=== PATIENT | female | born 1935 | race Caucasian/White ===

== ENCOUNTER 2018-06-04 14:13 | Emergency (ER) | payer OTHER, BC ==
[~2018-06-04] VITALS: Ht 160 cm; Wt 65.8 kg
[2018-06-04 14:14] VITALS: BP 130/84
[2018-06-04] MEDS ORDERED: APAP650 PO (14:29)
[2018-06-04] MEDS ORDERED: FLEET ENEMA133 ML RECTAL (14:29)
[2018-06-04] MEDS ORDERED: VITAMIN B-12500 MCG PO (14:30)
[2018-06-04] MEDS ORDERED: TYLENOL325 MG PO (14:30)
[2018-06-04] MEDS ORDERED: VITAMINC500 PO (14:30)
[2018-06-04] MEDS ORDERED: MILK OF MA2400 MG/10 PO (14:31)
[2018-06-04] MEDS ORDERED: BISACODYL10 MG RECTAL (14:31)
[2018-06-04] MEDS ORDERED: NYSTATIN1 EA10 TOP (14:32)
[2018-06-04 15:08] LABS: HCO3 26.2 mmol/L (22.0-26.0); PCO2 39.8 mmHg (35.0-45.0); pH 7.437 (7.360-7.450); sO2 95.9 % (92.0-98.0)
[2018-06-04 15:32] LABS: ABSOLUTE NEUTROPHILS 8.4 thou/uL (1.4-8.2); BASOPHILS 0.3 % (0.0-2.0); EOSINOPHILS 1.5 % (0.0-3.0); HEMATOCRIT 41.2 % (37.0-47.0); HEMOGLOBIN 13.6 gm/dL (12.0-15.0); LYMPHOCYTES 10.7 % (24.0-44.0); MCH 26.1 pg (26.0-34.0); MCHC 33.1 g/dL (28.0-37.0); MCV 78.9 fL (80.0-100.0); MONOCYTES 8.9 % (1.0-8.0); PLATELET COUNT 201 thou/uL (150-400); POLYS 78.6 % (36.0-66.0); RBC 5.23 mil/uL (4.20-5.00); RDW 17.2 % (10.5-14.5); WBC 10.7 thou/uL (4.0-11.0)
[2018-06-04 16:26] LABS: PROTIME 9.8 Seconds (9.3-11.4)
[2018-06-04 16:29] LABS: ALBUMIN 2.8 g/dL (3.4-5.0); CALCIUM 9.3 mg/dL (8.5-10.1); TOTAL BILIRUBIN 0.3 mg/dL (<0.1-1.0); TOTAL PROTEIN 6.6 g/dL (6.4-8.2)
[2018-06-04 20:56] VITALS: BP 171/90
--- NOTE | 2018-06-05 08:27 | EKG ---
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 : 1935 Requested By: Amairani Ambrocio Order Number: [id number] MD: Vik Perdue Measurements Intervals [place] Rate: 112 P: 37 MO: 151 QRS: -56 QRSD: 91 T: 75 QT: 292 QTc: 399 Interpretive Statements Sinus tachycardia Left ventricular hypertrophy Inferior infarct, old Anterior Q waves, possibly due to LVH No previous ECG available for comparison Electronically Signed On 06-05-2018 8:27:32 DIRECTOR FEDERAL by Vik Perdue [email or web address] <ELECTRONICALLY SIGNED> By: Vik Perdue MD 06/05/18 0827 D: 01/0 1440 Vik Perdue MD /IOANA
== END 2018-06-04 21:10 | disposition short-term general hospital (02) ==
LOC: ER 14:13 → EROBS 16:12 → ER 16:12
PROVIDERS: Physician Assistant
DX: S22.41XA Multiple fractures of ribs, right side, initial encounter for closed fracture (principal); J96.01 Acute respiratory failure with hypoxia; J94.2 Hemothorax; I21.4 Non-ST elevation (NSTEMI) myocardial infarction; J93.9 Pneumothorax, unspecified; Z88.6 Allergy status to analgesic agent; Z88.1 Allergy status to other antibiotic agents; Z88.8 Allergy status to other drugs, medicaments and biological substances; Z88.0 Allergy status to penicillin; W18.39XA Other fall on same level, initial encounter; Y92.89 Other specified places as the place of occurrence of the external cause; Y93.89 Activity, other specified; Y99.8 Other external cause status

== ENCOUNTER 2018-09-07 02:39 | Inpatient (IN) | payer OTHER, BC ==
[~2018-09-07] VITALS: Ht 162.6 cm; Wt 63.5 kg
--- NOTE | ~2018-09-07 | HC ---
[facility] [place] [address] CONSULTATION Name: ROHAN RITCHIE Room #: 355-P ADM IN M.R.#: [id number] Admission: 09/07/18 ������������������ Attend Phys: Silvia De León Discharge: ������������������ Date of : 33 Report #: [id number] THIS REPORT FOR: //name// CC: Silvia Sainz DATE OF SERVICE: 09/09/2018 HISTORY OF PRESENT ILLNESS: The patient is an 83-year-old white female with a prior history of CVA with right-sided hemiparesis with residual, was admitted from assisted living facility with worsening weakness of her right upper and right lower extremity. She noted that she was having more and more problems with her functional mobility. She typically utilizes a walker during the day, but she was having more and more problems using the right arm and the right leg and was actually needing to be lifted up to the wheelchair and to the bathroom, which was unusual for her. She was admitted to [facility] and evaluated for the increased right-sided weakness. She was seen by Neurology. MRI revealed multiple old infarcts, right frontal, bilateral cerebellar, left frontal, and small old left parietal. She has the right-sided weakness. MRI of the cervical, thoracic, and lumbar spine showed significant degenerative arthritis, but no obvious etiology. The recommendation is that the patient eventually follow up with her outpatient neurologist at . We are seeing her to try to work in rehabilitation to try to improve the patient's functional independence closer to her premorbid functional level. Of note, the patient also has been diagnosed with urinary tract infection, is noted to have an encephalopathy and is on IV antibiotics. PAST MEDICAL HISTORY: Includes prior CVA with right hemiparesis. She had a prior ankle fracture in 02/2018. MEDICATIONS: Please see the full medication listing. ALLERGIES: TORADOL, KEFLEX, DOLOBID, ERYTHROMYCIN, DITROPAN, AND PENICILLIN. SOCIAL HISTORY: As noted above. She lives in an assisted living facility, was able to do quite well at the walker level, needed assistance with bathing. She used the wheelchair at night. She does have an involved daughter. She apparently was pushed to have breakfast in a wheelchair, but walked to have lunch and dinner, mostly with the walker. She gets minimal assistance premorbidly typically with dressing and bathing. She had indicated that she did most of her dressing and that she did need help with toileting premorbidly. REVIEW OF SYSTEMS: No current complaints of chest pain, shortness of breath, or abdominal discomfort. She has the right-sided weakness. No focal extremity pain complaints. Denies any bowel or bladder changes. No difficulty [address] [address] CONSULTATION Name: ROHAN RITCHIE Room #: 355-P [facility] IN M.R.#: [id number] Admission: 09/07/18 ������������������ Attend Phys: Silvia De León Discharge: ������������������ Date of : 33 Report #: [id number] swallowing; although, she thinks she may have had one episode where she had a cough afterwards. No focal visual problems. PHYSICAL EXAMINATION: GENERAL: The patient is an 83-year-old white female, in no obvious distress. VITAL SIGNS: Last recorded temperature is 97.6, pulse is 73, respirations 20, and blood pressure is 129/70. She is alert. HEENT: Appeared to be benign. NEUROLOGIC: Cranial nerves grossly intact. Facies are symmetric. No obvious visual field neglect was noted. She is able to verbalize; although, defers a lot of answers to her daughter. EXTREMITIES: She has functional range of motion of the upper extremities with some decreased end range with some chronic arthritic changes. Strength of the left upper extremity is probably a grade 4/5. Right upper extremity is 3+ to 4-. Left lower extremity is 4/5. Right lower extremity is probably 3+ to 4-/5. DTRs are trace to 1. She was reasonably good with simultaneous stimulation. There was no clonus. She is mod assist with sit to stand. Gait 10 feet min assist front-wheeled walker, mod assist bathing. ASSESSMENT: The patient is an 83-year-old white female with the following problem list: 1. Increased right hemiparesis. Appears to be clinical evidence of an acute cerebrovascular accident; although, findings are not found radiographically. 2. Multiple old cerebrovascular accidents as noted above. 3. Encephalopathy. 4. Urinary tract infection, on IV antibiotics. 5. Hypertension. 6. Prior history of pneumothorax secondary to rib fracture. 7. Functional mobility, ADL decline. 8. Rule out swallowing problems. PLAN: The patient is a candidate for an acute in-hospital inpatient rehabilitation stay. Can plan on transfer to the acute inpatient rehab [facility] when medically cleared and a bed available. ��������������������������������������������� ���������������������������������������� By: ��������������������������������������������� [id number] [id number] Kj Gottlieb MD /[facility]
[~2018-09-07 02:39] MED LIST: APAP650 PO; BISACODYL10 MG RECTAL; FLEET ENEMA133 ML RECTAL; MILK OF MA2400 MG/10 PO; NYSTATIN1 EA10 TOP; TYLENOL325 MG PO; VITAMIN B-12500 MCG PO; VITAMINC500 PO
[2018-09-07 02:42] VITALS: BP 116/51
[2018-09-07 03:07] LABS: ABSOLUTE NEUTROPHILS 6.6 thou/uL (1.4-8.2); BASOPHILS 0.5 % (0.0-2.0); EOSINOPHILS 2.2 % (0.0-3.0); HEMATOCRIT 34.2 % (37.0-47.0); HEMOGLOBIN 10.9 gm/dL (12.0-15.0); LYMPHOCYTES 18.8 % (24.0-44.0); MCH 23.1 pg (26.0-34.0); MCV 72.2 fL (80.0-100.0); MONOCYTES 6.6 % (1.0-8.0); PLATELET COUNT 373 thou/uL (150-400); POLYS 71.9 % (36.0-66.0); RBC 4.73 mil/uL (4.20-5.00); RDW 17.7 % (10.5-14.5); WBC 9.2 thou/uL (4.0-11.0)
[2018-09-07 03:08] LABS: POC CA IONIZED 4.6 mg/dL (4.5-5.3); POC CREATININE 0.8 mg/dL (0.6-1.3); POC HEMOGLOBIN 10.9 g/dL (12.0-15.0); POC POTASSIUM 3.6 mmol/L (3.5-5.1)
[2018-09-07 03:14] LABS: APTT 31.1 Seconds (24.5-32.8)
[2018-09-07 03:16] LABS: ANION GAP 9 mmol/L (7-16); BUN 16 mg/dL (7-18); CALCIUM 9.4 mg/dL (8.5-10.1); CHLORIDE 102 mmol/L (98-107); CO2 27 mmol/L (21-32); CREATININE 0.9 mg/dL (0.6-1.0); GLUCOSE 91 mg/dL (74-106); POTASSIUM 3.8 mmol/L (3.5-5.1); SODIUM 138 mmol/L (136-145)
[2018-09-07 03:26] LABS: ALBUMIN 2.8 g/dL (3.4-5.0); SGOT 13 U/L (15-37); SGPT 11 U/L (30-65); TOTAL BILIRUBIN 0.7 mg/dL (<0.1-1.0); TROPONIN-I <0.06 ng/mL (<0.06)
[2018-09-07 03:56] LABS: ANISOCYTOSIS 1+; HYPOCHROMASIA 1+; MICROCYTES 1+
[2018-09-07 03:57] LABS: POLYCHROMASIA 1+
[2018-09-07 04:01] LABS: URINE BILIRUBIN NEGATIVE (Negative); URINE BLOOD 1+ (Negative); URINE CLARITY SL CLOUDY; URINE COLOR YELLOW; URINE GLUCOSE-RANDOM* NEGATIVE (Negative); URINE KETONES NEGATIVE (Negative); URINE PROTEIN (DIPSTICK) TRACE (Negative); URINE SPECIFIC GRAVITY 1.015 (1.005-1.035); URINE UROBILINOGEN 0.2 E.U./dl (0.2-1.0)
[2018-09-07 04:02] LABS: URINE LEUKOCYTES-REFLEX 3+ (Negative); URINE NITRITE-REFLEX POSITIVE (Negative)
[2018-09-07 04:09] LABS: AMP/METHAMP Negative (Negative); BARBITURATES Negative (Negative); BENZODIAZEPINES Negative (Negative); COCAINE Negative (Negative); METHADONE Negative (Negative); OPIATES Negative (Negative); PCP Negative (Negative)
[2018-09-07 04:10] LABS: CASTS None Seen /LPF (None Seen); MUCUS None Seen strn/LPF (None Seen); SQUAMOUS None Seen /LPF (0-3)
[2018-09-07 04:11] LABS: BACTERIA-REFLEX >30 Many /HPF (None Seen); CRYSTALS None Seen /LPF (None Seen); URINE RBC 3-10 Few /HPF (0-2); URINE WBC-REFLEX >25 Many /HPF (0-5); WBC CLUMPS Moderate (None Seen)
[2018-09-07 04:57] VITALS: BP 121/62
[2018-09-07 05:16] VITALS: BP 132/74
--- NOTE | 2018-09-07 06:31 | NUR ---
admission completed. iv levofloxicin started and iv fluids infusing. she is quiet and is having complaints of increased weakness to her rt arm and leg. she does have a history of this rt sided weakness per dtrs report. oriented to room and surroundings. denies pain. careplan started.
[2018-09-07 07:37] VITALS: BP 123/73
--- NOTE | 2018-09-07 09:11 | EKG ---
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 : 1935 Requested By: Giorgio Adam Order Number: [id number] MD: Saqib Garnica Measurements Intervals [place] Rate: 61 P: 23 MT: 144 QRS: -44 QRSD: 100 T: 7 QT: 396 QTc: 399 Interpretive Statements Sinus rhythm Atrial premature complexes Left anterior fascicular block Borderline T abnormalities, anterior leads Compared to ECG 06/04/2018 14:40:26 Atrial premature complex(es) now present Left anterior fascicular block now present T-wave abnormality now present Sinus tachycardia no longer present Electronically Signed On 09-07-2018 9:10:58 CDT by Saqib Garnica [email or web address] ��������������������������������������������� <ELECTRONICALLY SIGNED> ���������������������������������������� By: Saqib Garnica MD ��������������������������������������������� 09/07/18 0910 0252 0252 Saqib Garnica MD /EPI
[2018-09-07 15:54] VITALS: BP 138/80
[2018-09-07 19:50] VITALS: BP 140/88
[2018-09-08] VITALS: BP 136/79
[2018-09-08 03:45] VITALS: BP 126/83
[2018-09-08 04:25] LABS: ANION GAP 10 mmol/L (7-16); BUN 14 mg/dL (7-18); CHLORIDE 104 mmol/L (98-107); CHOLESTEROL 157 mg/dL (<200); CO2 24 mmol/L (21-32); CREATININE 0.8 mg/dL (0.6-1.0); GLUCOSE 90 mg/dL (74-106); HDL CHOLESTEROL 42 mg/dL (>40); LDL CHOLESTEROL 102 mg/dL (<100); POTASSIUM 3.8 mmol/L (3.5-5.1); SODIUM 138 mmol/L (136-145); TC:HDL 3.7 Ratio (Not establshd); TRIGLYCERIDE 68 mg/dL (<150); VLDL 14 mg/dL (<40)
[2018-09-08 04:26] LABS: SERUM ASSESSMENT Clear
--- NOTE | 2018-09-08 05:30 | NUR ---
No change in patient neuro assessment. Patient ALOx4 with right sided weakness and a stronger left side. PERRLA. Patient remains weak and anxious when ambulating. Patient moved very slow and had trouble with getting her right foot to move at times. Patient needed coaching on when and how far to turn. Patient assist x1 with walker, or assist x2 with two people. Patient bed alarm and yellow socks on.
[2018-09-08 07:57] VITALS: BP 145/87
[2018-09-08 16:42] VITALS: BP 149/86
[2018-09-08 20:10] VITALS: BP 177/87
[2018-09-08 21:32] VITALS: BP 137/73
[2018-09-09 04:44] VITALS: BP 138/73
--- NOTE | 2018-09-09 05:11 | NUR ---
Patient neuro checks remain unchanged; ALOx4, strong on the left side and weakness on the right side. Patient up to the commode x1 assist with the walker. Patient needed encouragement when turning and moving toward the commode and back to the bed. The patient is still slow with getting her right leg to move. Patient's bed alarm on, bed in low position and call light within reach. Patient making partial progress toward plan of care goals.
[2018-09-09 07:43] VITALS: BP 129/70
--- NOTE | 2018-09-09 12:04 | HC ---
[facility] [place] [address] CONSULTATION Name: ROHAN RITCHIE Room #: 355- ADM IN M.R.#: [id number] Admission: 09/07/18 ������������������ Attend Phys: Silvia De León Discharge: ������������������ Date of : 33 Report #: [id number] THIS REPORT FOR: //name// CC: Silvia Sainz DATE OF SERVICE: 09/07/2018 HISTORY OF PRESENT ILLNESS: This is an 83-year-old female patient who was evaluated by me for increasing right-sided weakness. The patient provided some history. The patient's daughter is there. She provided some history. The records were reviewed. She lives in an assisted living and they noticed that she is getting weaker on the right side. This happened a few days ago. History is not very clear. It looks like the right upper extremity weakness started several years ago. She used to live in [place], [place]. They thought it was because of arthritis. Then, she became weak in the right lower extremity and has some numbness in the right side of the face. They did evaluation in this patient and they found that the patient had strokes on the right side but they were not sure why she is having weakness on the right side also. She fell and she had some pneumothorax and she was admitted to [facility]. I do not have any records from [facility]. They apparently did MRI in this patient and found some stroke in the posterior fossa. She has moderately become weak on the right side. She is left handed. She is able to carry on many activities with the left hand. REVIEW OF SYSTEMS: Indicate that this patient had strokes in the past. She has spine problems, but that has been in the lower spine. She has respiratory problems, pleural effusion, pneumothorax for which she was admitted to [facility]. She had a fall that time. She had multiple rib fractures that time. That was in May. We do not have the record. She does not believe that she has any new eye, ENT, cardiac, respiratory, GI, , musculoskeletal, constitutional, dermatological, hematological, psychiatric, throat, allergic symptom associated with present symptomatology. PAST MEDICAL HISTORY: Positive for strokes but history is not very clear. FAMILY HISTORY: Negative for early age stroke. SOCIAL HISTORY: She does not smoke. PHYSICAL EXAMINATION: NEUROLOGICAL: Indicate she is alert, responsive, able to follow commands. Speech is at her baseline. She lives in assisted living. Memory and fund of knowledge is at her baseline. Cranial nerve examination 2 through 12 does [facility] [address] [place] [address] CONSULTATION Name: ROHAN RITCHIE Room #: 355-P [facility] IN M.R.#: [id number] Admission: 09/07/18 ������������������ Attend Phys: Silvia De León Discharge: ������������������ Date of : 33 Report #: [id number] indicate that there is probably weakness on the right side of the face. She is pretty significantly weak in the right upper and right lower extremity. Her tone is increased on both upper and lower extremity but position sense is present. Reflexes appeared to be asymmetrical and is more on the right side as compared to the left side. She cannot do cerebellar signs on the right side and I could not look at the patient's fundus. There is no meningeal sign in this patient. NECK: There is no thyroid mass. HEENT: Her hearing and vision looks adequate. GENERAL: She is a thinly built individual who does not have any dysmorphic features of eyes, ears and face. CARDIAC: Examinations indicate there may be some irregularity, but the patient does not appear to be in atrial fibrillation. She did have an EKG and that confirmed that finding. LUNGS: No respiratory difficulty or rhonchi was noted. VITAL SIGNS: Blood pressure is 123/73, respiration is 16, pulse is 71 and temperature is 97.4. LABORATORY DATA: White count is 9.2, but the patient's urine is abnormal consistent with UTI. She did have a CT scan of the head, which was reviewed and that showed old strokes but no new strokes. IMPRESSION AND PLAN: 1. Very poorly formed history in this patient, but she indicates she is weak on the right side. We will exclude the possibility of any extension of the patient's prior cerebrovascular accident. Her weakness is on the right side and the face is not much involved. I would like to exclude any associated abnormality in the cervical spine. The patient has urinary tract infection and expected to have some encephalopathy and if she had a prior cerebrovascular accident, they can have focal signs that is already being treated. We will get an MRI of the brain and C-spine. 2. We will see how she does with treatment of urinary tract infection. 3. She needs physical therapy and occupational therapy evaluation and we will also see how she does with that. 4. She had an extensive evaluation with [facility] recently and we will try to see if she can get those records from that. Thank you very much for this referral and if you have any question, please feel free to contact me. ��������������������������������������������� <ELECTRONICALLY SIGNED> ���������������������������������������� By: Clint Schumacher MD ��������������������������������������������� 09/09/18 1204 0902 0041 Clint Schumacher MD /nt
--- NOTE | 2018-09-09 15:43 | NUR ---
ASSESSMENT: CM REVIEWED CHART AND MET WITH PATIENT AT THE BEDSIDE. PT WAS ADMITTED WITH POSSIBLE TIA. PT REPORTS SHE LIVES AT [facility]. PT REPORTS SHE USES A WALKER AND A WHEELCHAIR THERE. PT REPORTS SHE HAS HAD HH IN THE PAST BUT NOT CURRENTLY. PT/OT RECOMMENDING [facility]. [facility] WAS CONSULTED FOR PATIENT AND CAN ACCEPT HER WHEN SHE IS MEDICALLY STABLE. PT IS AGREEABLE TO GO TO [facility]. CM WILL CONTINUE TO FOLLOW TO ASSIST NEEDED. PTS DAUGHTER SUNNY IS AT THE BEDSIDE AND UPDATED ON PLAN. CM CONTACTED DYLAN AT [facility] TO UPDATE HER AND FAXED CLINICAL.
[2018-09-09 16:20] VITALS: BP 140/75
[2018-09-09 19:04] VITALS: BP 132/70
--- NOTE | 2018-09-09 19:34 | NUR ---
PT HOPES TO TRANSFER TO [facility] TOMORROW IF BED AVAILABLE..INCREASED RT SIDED WEAKNESS PRIOR TO ADMISSION...ENCOURAGE INCREASE ACTIVITY...
[2018-09-10 03:39] VITALS: BP 120/63
--- NOTE | 2018-09-10 04:40 | NUR ---
Pt. slept fair during the night. No change in neuro assessment. Up with assist to commodex1. Making progress towards care plan goals.
[2018-09-10 07:32] VITALS: BP 134/65
--- NOTE | 2018-09-10 13:18 | NUR ---
on-going assessment: CM REVIEWED CHART AND MET WITH PATIENT AND HER DAUGHTER AT THE BEDSIDE. PLANS ARE FOR PT TO GO TO [facility] TODAY. [facility] NOTIFIED AND THEY CAN ACCEPT HER TODAY. REPORT TO BE CALLED TO [phone]. PT REPORTS NO FURTHER NEEDS AT THIS TIME.
--- NOTE | 2018-09-10 14:12 | NUR ---
PLANS TO DISCHARGE TO [facility] THIS AFTERNOON...ORDERS IN COMPUTER...DAUGHTER IN ROOM AND AWARE OF TX...EAGER TO START REHAB...
[2018-09-10] MEDS ORDERED: LEVAQUIN 500 M500 M2 PO (15:05)
== END 2018-09-10 15:26 | DRG 69 ==
LOC: ER 02:39 → 3W 04:09 → EROBS 04:09 → 3W 04:57
PROVIDERS: Emergency Medicine; Nurse Practitioner Family; ADMIT Hospitalist
DX: G45.9 Transient cerebral ischemic attack, unspecified (principal); E43 Unspecified severe protein-calorie malnutrition; N39.0 Urinary tract infection, site not specified; G93.40 Encephalopathy, unspecified; I69.351 Hemiplegia and hemiparesis following cerebral infarction affecting right dominant side; I10 Essential (primary) hypertension; M62.84 Sarcopenia; M19.011 Primary osteoarthritis, right shoulder; Z87.81 Personal history of (healed) traumatic fracture; Z88.1 Allergy status to other antibiotic agents; Z88.0 Allergy status to penicillin; Z88.8 Allergy status to other drugs, medicaments and biological substances; Z79.82 Long term (current) use of aspirin; Z79.899 Other long term (current) drug therapy
CPT/HCPCS: 10879

== ENCOUNTER 2018-09-10 12:40 | Inpatient (IN) | payer OTHER, BC ==
[~2018-09-10] VITALS: Ht 160 cm; Wt 63.5 kg
[2018-09-10] MEDS ORDERED: LEVAQUIN 500 M500 M2 PO (15:05)
[2018-09-10 15:35] VITALS: BP 130/63
--- NOTE | 2018-09-10 19:39 | NUR ---
ASSUMED CARE AT APPROX 1600. PT ADMITED FROM [facility] TO [facility] FOR CLINICAL TIA NEGATIVE FOR CVA THIS TIME PT HAD MULTIPLE CVAs IN THE PAST. HAS RIGHT SIDE WEAKNESS WITH LIMITTED MOVEMENT. PT CAME FROM [facility] [place]. HAS ONE SON AND DAUGHTER, VIDAL. PATIENT A/OX4. ABLE TO COMMUNICATE AND VOICE HER NEEDS. DENIES PAIN,SOB, N/V PATIENT EDUCATED ON UNIT SPECIFIC PRECAUTIONS INCLUDING FALL PRECAUTIONS. DISCUSSED ABOUT REHAB SCHEDULE. FALL PRECAUTIONS IN PLACE. PATIENT VERBALLY AGREED TO FALL PRECAUTIONS. PATIENT ATE 50% DINNER, NO SWALLOWING ISSUES BUT HAS PROBLEMS WITH CHEWING. DAUGHTER BROUGHT DENTURE ADHENSIVE TONIGHT. PATIENT UP X1 ASSIST GB AND WALKER, LAST FALL WAS ON MAY. REPORT LAST BM WAS YESTERDAY. ADMISSION ASSESSMENT COMPLETE. SKIN INTACT, HAS MILD REDNESS ON BOTTOM, ENCOURAGED PT TO TURN IN BED, GAVE REPORT TO NIGHT NURSE TO CONTINUE TO MONITOR OFFERED SUPPORTIVE CARE. ENCOURAGED PT TO VOICE HERNEEDS. FAXED MED LIST TO PHARMACY. HANDOFF TO NIGHT NURSE TO CONTINUE TO FOLLOW UP WITH MEDS AND CALL FOR PHYSICIAN CONSULTS.
[2018-09-10 19:40] VITALS: BP 145/78
[2018-09-11 05:34] LABS: HEMATOCRIT 33.2 % (37.0-47.0); HEMOGLOBIN 10.5 gm/dL (12.0-15.0); MCH 22.9 pg (26.0-34.0); MCHC 31.5 g/dL (28.0-37.0); MCV 72.7 fL (80.0-100.0); RBC 4.57 mil/uL (4.20-5.00); RDW 18.1 % (10.5-14.5); WBC 5.9 thou/uL (4.0-11.0)
--- NOTE | 2018-09-11 05:34 | NUR ---
UP TO BSC WITH MIN ASSIST, RIGHT SIDED WEAKNESS. WATER AND CALL LIGHT MADE AVAILABLE TO LEFT HAND. CONCERNED ABOUT HER POOR VISION BEING A HINDERANCE. PATIENT DECLINES ANY OFFER TO TURN ON HER SIDE, BUT APPRECIATES MOISTURE BARRIER TO RECCENED BUTTOCKS, HAS BEEN CONTINENT
[2018-09-11 05:44] LABS: CREATININE 0.8 mg/dL (0.6-1.0); POTASSIUM 4.1 mmol/L (3.5-5.1)
[2018-09-11 07:45] VITALS: BP 109/67
--- NOTE | 2018-09-11 12:40 | NUR ---
cm visited with pt while up in wheel chair. pt a & o x 3, pleasant and able to make her needs know. preferrs going by pat. intro to cm, transition of care, home health and team meeting " oh i would like by daughter to be at meeting " /pt. education that cm will be discussing dcp with pt and daughter after meeting. " ok she probably have to work that day any way, live at [facility], have walker and wheel chair. have meals there. had hh in past"/pt. will cont following as needed for dc needs.
--- NOTE | 2018-09-11 15:12 | NUR ---
Patient participated in community reintegration on 09/11/18 with SPEECH THERAPY. Refer to documentation by ALIYAH SPEECH THERAPIST.
--- NOTE | 2018-09-11 18:36 | NUR ---
ASSUMED CARE AT APPROX 0715. PATIENT A/O X4. DENIES PAIN. UP X1 ASSIST, MAX ASSIST TRANSFER. PARTICIPATED IN THERAPY. OUT TO TABLES FOR MEALS. VSS. MEDS REVIEWED, ORDERS CLARIFIED WITH PROVIDER. PATIENT EDUCATED AT BEDSIDE REGARDING TIA, PRINTED EDUCATION PROVIDED, PATIENT CORRECTLY VERBALIZED SIGNS/SYMPTOMS OF A STROKE. PATIENT REFUSES TURNING Q2, EDUCATED ABOUT PRESSURE REDUCTION AND RISK OF PRESSURE WOUNDS. PATIENT VERBALIZED UNDERSTANDING, BUT REFUSED TURNING. PATIENT UP TO CHAIR DURING DAY. FALL PRECAUTIONS IN PLACE. PATIENT RESTING IN BED AT CHANGE OF SHIFT.
[2018-09-11 19:07] VITALS: BP 125/58
--- NOTE | 2018-09-12 04:31 | NUR ---
PIVOT TRANSFER WITH 1 PERSON ASSIST UP TO BSC. REFUSES TO TURN TO SIDE BECAUSE SHE IS MORE COMFORTABLE ON HER BACK. BOTTOM IS REDDENED, SHE APPRECIATES MOISTURE BARRIER AND INSISTS ON WEARING HER BRIEFS FROM HOME DUE TO OCCASSIONAL STRESS INCONTINENCE
[2018-09-12 08:08] VITALS: BP 116/51
--- NOTE | 2018-09-12 15:59 | NUR ---
ASSUMED CARE AT APPROX 0715. PATIENT A/O X4. DENIES PAIN. UP X1 ASSIST GB, PIVOTING TO BSC/BED FROM . PATIENT HAVING SMALL, HARD BM'S. PATIENT REFUSING BOWEL AIDS AT THIS TIME, AGREED TO DRINK PRUNE JUICE AT 2 MEALS THIS DATE. EDUCATED ON CONSTIPATION & BOWEL AIDS. WILL CONTINUE TO MONITOR. SOFT TOUCH CALL LIGHT OBTAINED PATIENT REPORTED DIFFICULTY PUSHING CALL BUTTON. PATIENT ROUNDED ON HOURLY. REFUSING TURNING, RE-EDUCATED ON PRESSURE WOUNDS, HEELS FLOATED. PATIENT UP IN CHAIR FOR MEALS AND BETWEEN THERAPY. FALL PRECAUTIONS IN PLACE. WILL CONTINUE TO MONITOR.
[2018-09-12 20:46] VITALS: BP 138/66
--- NOTE | 2018-09-13 02:38 | NUR ---
PT ASSESSMENT COMPLETED AND VSS. MEDS GIVEN ORDERED IN APPLESAUSE - WELL TOLERATED. FALL PRECAUTIONS IN PLACE. UP TO THE BSC WITH ASST/GAIT/WALKER. PT INSISTED ON WEARING A BRIEF. COCCYX RED. BARRIER CREAM APPLIED. SPOKE WITH PT ABOUT THE IMPORTANCE OF TURNING. PT REFUSED TO HAVE STAFF REPOSITION HER BUT WAS WILLING TO TURN ON HER SIDE ON OCCASION. SLEEPING WELL. WILL CONTINUE TO MONITOR FREQUENTLY.
[2018-09-13 08:15] VITALS: BP 123/61
--- NOTE | 2018-09-13 08:57 | NUR ---
ASSUMED CARE OF PT AT 0715. PT IS A&OX4. IS ON ROOM AIR. DENIES PAIN. IS UP WITH 1 ASSIST, GB, WALKER WITH RIGHT SIDED WEAKNESS. FALL PRECAUTIONS & HOURLY ROUNDING MAINTAINED. LABS & VITALS REVIEWED. PT IS STABLE. TAKES PILLS ONE AT AT TIME IN APPLE SAUCE. TO DINNER ROOM FOR ALL MEALS. PT IS PARTICULAR ABOUT HOW THINGS ARE PLACED IN THE ROOM & HOW THINGS ARE TO BE DONE. PT IS CURRENTLY SITTING UP IN RECLINER, WATCHING TV. CALL LIGHT WITHIN REACH. WILL CONTINUE TO MONITOR.
--- NOTE | 2018-09-13 15:49 | NUR ---
I have reviewed the documentation by ERIC IGLESIAS from 09/13/18 to 09/13/18 and I concur with it. SUSAN RUFF
[2018-09-13 20:02] VITALS: BP 154/96
--- NOTE | 2018-09-14 03:36 | NUR ---
ASSUMED CARE FROM DAY SHIFT , PT ENCOURAGE TO ASSIST IN CARE PT VERY DEPENDENT ON STAFF WHEN TASK SHE COULD DO FOR SELF. DENIES PAIN OR SOA, PO MEDICATION TAKEN WITH APPLESAUCE, TOLERATED WELL. RESTED WELL THROUGHOUT HOURLY ROUNDS. WILL CONITNUE WITH CURRENT PLAN OF CARE.
[2018-09-14 19:49] VITALS: BP 133/55
--- NOTE | 2018-09-15 02:51 | NUR ---
ASSUMEEC CARE AT SATR OF SHIFT PT HAVE NO CONCERNS OR COMPLAINTS , STILLL NEEDING ENCOURAGMENT FOR ADLS , PT WANT STAFF TO SPOON MEDICATION IN MOUTH WHEN PT IS FEEDING SELF ALL THREE MEALS. PT ABLE TO TAKE MEDICATION WITH APPLE SAUCE, PT ABLE TO FEED TO SELF WITHOUT PROMBLEMS, UP TO BSC X3 WITH ASSSIT OF ONE STANDBY ASSIST. WILL CONITNUE WITH CURRENT PLAN OF CARE
[2018-09-15 07:18] VITALS: BP 115/56
--- NOTE | 2018-09-15 17:27 | NUR ---
ASSUMED CARE AT APPROX 0715. PATIENT A/O X4. DENIES PAIN. UP X1 ASSIST GB AND WALKER. VSS. NEEDS CUES/ENCOURAGEMENT TO INCREASE INDEPENDENCE/INITIATION OF ADLS. OUT TO TABLES FOR MEALS, AMBULATED WITH BOOT REPAIRER. SUPERVISION ASSIST FOR CLOTHING MANAGEMENT. MEDS GIVEN PER ORDERS. PATIENT CALLS APPROPRIATELY. FALL PRECAUTIONS IN PLACE. PATIENT RESTING IN BED AFTER DINNER. WILL CONTINUE TO MONITOR.
[2018-09-15 20:26] VITALS: BP 136/60
--- NOTE | 2018-09-16 04:20 | NUR ---
PT ASSESSMENT COMPLETED AND VSS. MEDS GIVEN ORDERED AND WELL TOLERATED. FALL PRECAUTIONS IN PLACE. PT UP TO BSC WITH ASST/GAIT/WALKER. VOIDING LARGE AMOUNT OF YELLOW URINE. SLEEPING WELL. DENIES NEEDS. WILL CONTINUE TO MONITOR FREQUENTLY.
[2018-09-16 07:45] VITALS: BP 126/66
--- NOTE | 2018-09-16 15:37 | NUR ---
I have reviewed the documentation by ERIC IGLESIAS from 09/16/18 to 09/16/18 and I concur with it. SUSAN RUFF
--- NOTE | 2018-09-16 15:38 | NUR ---
DISCHARGE PLANNING: PATIENT'S DAUGHTER HANDED TO NURSE TECHNICAL SYSTEM ANALYST A FORM FOR PT'S LTC INSURANCE, AND REQUESTED THAT WE FILL IT OUT AND FAX IT TO THE INSURANCE COMPANY. EQUIPMENT MONITOR PHOTOTYPESETTING WAS NOTIFIED, AND WE WILL PROCESS FOLLOWING DISCHARGE FROM OUR FACILITY. WHEN NURSE TECHNICAL SYSTEM ANALYST RETURNED TO THE ROOM TO INFORM THE PATIENT AND FAMILY OF WHAT WE WOULD BE DOING WITH THE FORM, THE DAUGHTER REQUESTED THAT WE PASS ON TO THE PATCH WORKER THAT THE PATIENT WANTS TO HAVE [facility] AT DISCHARGE, SHE HAS USED THEM IN THE PAST AND SHE IS FAMILIAR WITH THEM. THIS INFORMATION WAS SENT TO THE PATCH WORKER.
--- NOTE | 2018-09-16 16:06 | NUR ---
ASSUMED CARE AT APPROX 0715. REPORTS SLEPT GOOD LAST NIGHT. PATIENT A/O X4. ABLE TO MAKE HER NEEDS KNOWN. [place] AND POOR VISION BUT MANAGEABLE.DENIES PAIN. UP X1 ASSIST GB AND WALKER AND GO TO BATHROOM. VSS. NEEDS CUES/ENCOURAGEMENT TO INCREASE INDEPENDENCE. OUT TO TABLES FOR MEALS. REASSESSMENT PER CHART. PT HAS SMALL HARD BM TODAY, REFUSES TO TAKE COLACE. PREFERS TO TAKE PRUNE JUICE DAILY. PT WAS ON HH DIET. PT HAS POOR APPETITE AND WOULD LIKE TO HAVE CHOCOLATE FOR DINNER. NOTIFIED CELESTINA EDUARDO AND OBTAINED ORDER TO CHANGE TO REGULAR DIET AND HOPE PT CAN EAT MORE. MEDS GIVEN PER ORDERS. PATIENT CALLS APPROPRIATELY. FALL PRECAUTIONS IN PLACE. DAUGHTER WAS HERE TO SEE PT. WILL GO TO DINNING ROOM FOR DINNER SOON. SKIN INTACT, GREAT TOES ON BOTH SIDE HAS OPTIFOAM FOR COMFORT. WILL CONTINUE TO MONITOR.
--- NOTE | 2018-09-16 16:46 | NUR ---
bedside nurse reported that daughter was in room and had question. cm called spoke with daughter who stated " i have paper work for her ltc insurance policy that needs to be filled out"/susan. amena passed on information to vocational nursing instructor, she visited with pt and family. nursing manage passed on that pt stated want continua hh when [facility].
[2018-09-16 19:16] VITALS: BP 138/57
--- NOTE | 2018-09-17 01:44 | NUR ---
PT ASSESSMENT COMPLETED AND VSS. MEDS GIVEN ORDERED AND WELL TOLERATED. FALL PRECAUTIONS IN PLACE. UP TO THE BSC WITH ASST/GAIT/WALKER. STEADY. VOIDING LARGE AMOUNT OF YELLOW URINE. PT REFUSED TURNS BUT WAS WILLING TO TURN ON HER OWN WITH REMINDERS. SLEEPING WELL. WILL CONTINUE TO MONITOR FREQUENTLY.
[2018-09-17 08:21] VITALS: BP 124/57
--- NOTE | 2018-09-17 13:37 | NUR ---
team meeting, recommendation: send update clinical to [facility] 09/25/18 with continua hh ( pt, ot, nursing). pt will remain on [facility] soft diet with thin liquids.
--- NOTE | 2018-09-17 14:25 | NUR ---
ASSUMED CARE AT APPROX 0715. PATIENT A/O X4. DENIES PAIN. UP X1 SBA GB AND WALKER, NEEDING CUES FOR INITIATION OF ADLS, CUES TO TURN Q2 WHILE IN BED TO RELIEVE PRESSURE. BARRIER CREAM APPLIED. VSS. PATIENT PARTICIPATING IN THERAPY. FALL PRECAUTIONS IN PLACE. PATIENT CALLS APPROPRIATELY FOR ASSISTANCE. FOAM DRESSING TO BILATERAL GREAT TOES FOR COMFORT. FALL PRECAUTIONS IN PLACE. WILL CONTINUE TO MONITOR.
--- NOTE | 2018-09-17 15:35 | NUR ---
I have reviewed the documentation by ERIC IGLESIAS from 09/17/18 to 09/17/18 and I concur with it. SUSAN RUFF
--- NOTE | 2018-09-17 16:49 | NUR ---
FAXED CLINICAL UPDATE TO [facility]GE SPOKE WITH ZABRINA AT FACILITY THEY RECEIVED UPDATE AND NOTIFIED THEM THAT WE ANTICIPATE DC 09/25 WITH CASA ROLF. ROSELIENP TO FOLLOW.
[2018-09-17 19:30] VITALS: BP 128/67
--- NOTE | 2018-09-18 04:11 | NUR ---
APPRECIATES TYLENOL AT HS MORE TO ALLOW SLEEP THAN FOR PAIN ITSELF. PIVOTS EASILY TO BSC FOR VOIDING, INSISTS ON WEARING BRIEF FOR USI, THOUGH IT REMAINS LARGELY DRY. PLANS VERY CAREFULLY TO KEEP EVERYTHING IN REACH ON HER LEFT SIDE AND TO KEEP WATER GLASS AT 50%
[2018-09-18 08:30] VITALS: BP 101/58
--- NOTE | 2018-09-18 11:58 | NUR ---
FAXED REFERRAL TO [facility] SPOKE WITH MICHELLE IN ADM HE WILL REVIEW REFERRAL DCP TO FOLLOW.
--- NOTE | 2018-09-18 13:46 | NUR ---
NOTIFIED NEREYDA HODGE SPOKE WITH DYLAN IN ADM THAT PT. IS ON A MECHANICAL SOFT WITH THIN LIQUIDS DIET SHE IS ABLE TO SUPPLY SPECIAL DIET TO PT AT FACILITY.
--- NOTE | 2018-09-18 14:50 | NUR ---
I have reviewed the documentation by ERIC IGLESIAS from 09/18/18 to 09/18/18 and I concur with it. CARROL PETERS
--- NOTE | 2018-09-18 18:53 | NUR ---
ASSUMED CARE OF PATIENT AT 0715. PATIENT IS A&OX4 WITH PERIODS OF FORGETFULNESS, VITAL SIGNS ARE STABLE. PATIENT REFUSED TURNING TO SIDES DESPITE EDUCATION ABOUT PRESSURE SORES AND SKIN IMPAIRMENT. PATIENT TOOK MEDS APPROPRIATELY WITH APPLESAUCE, ONE AT A TIME. FALL PRECAUTIONS IN PLACE AND NURSING WILL CONTINUE TO MONITOR PATIENT.
[2018-09-18 19:58] VITALS: BP 141/77
--- NOTE | 2018-09-19 01:22 | NUR ---
PT ALERT AND ORIENTED X 4. UP TO BSC WITH ASSIST X 1. RIGHT SIDED WEAKNESS. PT TOOK HS MEDS IN APPLESAUCE WITHOUT DIFFICULTY. PT DENIES PAIN OR DISCOMFORT. BED ALARM ON FOR SAFETY. PT APPEARS TO BE SLEEPING ON HOURLY ROUNDS.
[2018-09-19 08:36] VITALS: BP 110/67
--- NOTE | 2018-09-19 16:27 | NUR ---
ASSUMED CARE AT APPROX 0715. REPORTS SLEPT GOOD LAST NIGHT. PATIENT A/O X4. DENIES PAIN, SOB, N/V. UP X1 SBA GB AND WALKER TO BATHROOM. HAD SMALL FORMED BM TODAY. PT NEEDING CUES FOR INITIATION OF ADLS, PT HAS BEEN UP FOR THERAPY AND WALK TO BATHROOM DURING DAY. REDNESS IS BETTER DURING DAY. PT NEEDS CUES FOR TURN Q2 WHILE IN BED TO RELIEVE PRESSURE. BARRIER CREAM APPLIED EARLIER. VSS. PATIENT PARTICIPATING IN THERAPY AND UP TO DINNING ROOM FOR MEALS. CONTINUE TO BE ON [facility] SOFT DIET. EATING ABOUT 50% BREAKFAST AND LUNCH. FALL PRECAUTIONS IN PLACE. PATIENT CALLS APPROPRIATELY FOR ASSISTANCE. FOAM DRESSING TO BILATERAL GREAT TOES FOR COMFORT. FALL PRECAUTIONS IN PLACE. WILL CONTINUE TO MONITOR.
--- NOTE | 2018-09-19 16:34 | NUR ---
I have reviewed the documentation by ERIC IGLESIAS from 09/19/18 to 09/19/18 and I concur with it. CARROL PETERS
[2018-09-19 20:09] VITALS: BP 132/80
--- NOTE | 2018-09-20 02:01 | NUR ---
PT ALERT AND ORIENTED X 4. UP TO BSC WITH ASSIST X 1 WITHOUT DIFFICULTY. PT INSISTED ON USING BSC RATHER THAN WALKING TO BR. RIGHT SIDED WEAKNESS. PT TOOK HS MEDS IN APPLESAUCE. PT DENIES PAIN OR DISCOMFORT. BED ALARM ON FOR SAFETY. PT APPEARS TO BE SLEEPING ON HOURLY ROUNDS.
[2018-09-20 05:34] LABS: CALCIUM 9.3 mg/dL (8.5-10.1); CREATININE 0.9 mg/dL (0.6-1.0); MAGNESIUM 1.9 mg/dL (1.8-2.4); POTASSIUM 4.3 mmol/L (3.5-5.1)
[2018-09-20 05:56] LABS: BASOPHILS 1.3 % (0.0-2.0); EOSINOPHILS 6.4 % (0.0-3.0); HEMATOCRIT 33.9 % (37.0-47.0); HEMOGLOBIN 10.8 gm/dL (12.0-15.0); LYMPHOCYTES 24.1 % (24.0-44.0); MCHC 31.8 g/dL (28.0-37.0); MCV 72.4 fL (80.0-100.0); MONOCYTES 9.2 % (1.0-8.0); PLATELET COUNT 326 thou/uL (150-400); RBC 4.69 mil/uL (4.20-5.00); RDW 18.9 % (10.5-14.5); WBC 5.1 thou/uL (4.0-11.0)
[2018-09-20 07:30] VITALS: BP 105/49
--- NOTE | 2018-09-20 15:19 | NUR ---
I have reviewed the documentation by ERIC IGLESIAS from 09/20/18 to 09/20/18 and I concur with it. CARROL PETERS
--- NOTE | 2018-09-20 18:35 | NUR ---
ASSUMED CARE AT APPROX 0715. PATIENT A/O X4. DENIES PAIN, SOB, N/V. PT GOT UPSET THAT SHE CAN'T ALLOW TO USE BSC AT HS. TALKED TO JOHANNA, HISTOLOGY SUPERVISOR AND THERAPISTS AND WE ARE OK FOR HER TO USE BSC UNTIL SUNDAY UP X1 SBA GB AND WALKER TO BATHROOM. VSS. PATIENT PARTICIPATING IN THERAPY AND UP TO DINNING ROOM FOR MEALS. DIET CHANGED TO REGULAR SINCE PT WANTS TO HAVE HOT CHOCOLATE VERY DINNER. CONTINUE TO BE ON [facility] SOFT DIET. EATING ABOUT 50% EACH MEALS. FALL PRECAUTIONS IN PLACE. PATIENT CALLS APPROPRIATELY FOR ASSISTANCE. FOAM DRESSING TO BILATERAL GREAT TOES FOR COMFORT. PT CONTINUE TO PROGRESS TOWARD DISCHARGE GOALS NEXT WEEK. OFFERED SUPPORTIVE CARE. REASSESSMENT PER CHART. MEDS GIVEN WITH APPLE SAUCE. ASSISTED PT TO BATHROOM PER REQUEST. FALL PRECAUTIONS IN PLACE. WILL GIVE REPORT TO NIGHT NURSE TO CONTINUE TO MONITOR.
[2018-09-20 19:56] VITALS: BP 101/61; BP 141/65
--- NOTE | 2018-09-21 00:18 | NUR ---
PT ASSESSMENT COMPLETED AND VSS. MEDS GIVEN ORDERED AND WELL TOLERATED. FALL PRECAUTIONS IN PLACE. UP TO THE BATHROOM AND BSC DURING THE NIGHT. VOIDING MODERATE AMOUNT OF YELLOW URINE. 0 BM DURING SHIFT. PT REFUSES STAFF REPOSITION. PT REPOSITIONING SELF IN BED AND MAKING SURE TO STAY OF HER BOTTOM. BARRIER CREAM APPLIED TO BOTTOM. SLEEPING WELL. WILL CONTINUE TO MONITOR FREQUENTLY.
[2018-09-21 08:59] VITALS: BP 116/71
--- NOTE | 2018-09-21 09:50 | NUR ---
ASSUMED CARE AT 0700. PATIENT IS ALERT AND ORIENTED X4, BUT FORGETFUL. PATIENT DICKERSON'S. PROCESS SERVER ARE EQUAL. LUNGS ARE CLEAR. ABD IS SOFT WITH BSX4. PATIENT IS UP WITH GAit belt and walker. UP TO THE DINING ROOM FOR MEALS. FALL AND SAFETY PROTOCOLS IN PLACE. DENIES PAIN AT THIS TIME. CONTINUES TO PROGRESS TOWARDS D/C GOALS. WILL CONTINUE TO MONITER.
--- NOTE | 2018-09-21 15:11 | HC ---
[facility] [place] [address] CONSULTATION Name: ROHAN RITCHIE Room #: 505-P ADM IN M.R.#: [id number] Admission: 09/10/18 ������������������ Attend Phys: Kj Gottlieb MD Discharge: ������������������ Date of : 33 Report #: [id number] THIS REPORT FOR: //name// CC: Kj Sainz DATE OF SERVICE: 09/14/2018 ATTENDING PHYSICIAN: Kj Gottlieb MD. 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 She had been in an assisted living facility when she experienced weakness in her right arm and right leg. Problems with functional mobility led to her hospitalization. An MRI reveal multiple old infarctions including right frontal bilateral cerebellar, left frontal and small old left parietal stroke. Additionally, an MRI of the cervical, thoracic and lumbar spine showed significant degenerative arthritis. Refer to her medical records for a complete summary of her medical condition, history and medications. Neuropsychological consultation was requested to provide assistance in the assessment of cognitive and emotional status and to provide recommendations and services. Prior to this most recent hospitalization, she was living in an assisted living facility. She moved there from her home in 04/2018. She was living independently in her own house, but had difficulty with managing instrumental activities of daily living without assistance. Additionally, she sustained a severe fall. She has had multiple falls with a fall in 05/2018 where she suffered multiple rib fractures. The patient has been retropulsive in falling. She is a high school graduate. 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 She has 2 children. A daughter lives nearby and provides adequate support as needed. TECHNIQUES UTILIZED: Clinical interview, review of medical records, staff consultation and behavioral observation, mini mental status exam 2 standard version, category fluency assessment and clock drawing. EXAMINATION FINDINGS: The patient was alert and cooperative with the assessment. She accurately described events surrounding her admission. There is no evidence of aphasia. Her thoughts are logical and goal oriented. There is no evidence of thought disorder. She does not report auditory or visual hallucinations. Her symptoms include sleep disturbance, decreased appetite, anxiety and diminished memory and word finding. Anxiety is described as high. [address] [address] CONSULTATION Name: ROHAN RITCHIE Room #: 505-P [facility] IN M.R.#: [id number] Admission: 09/10/18 ������������������ Attend Phys: Kj Gottlieb MD Discharge: ������������������ Date of : 33 Report #: [id number] She does not report subjective feelings of depression. Her performance on the MMSE 2 brief version is in the borderline range with a raw score of 12/16, T score at 31 and percentile rank of 3. She was 3/3 for initial registration, 4/5 for orientation to time, 4/[address] and 0/3 for immediate recall of 3 items after a brief time delay and distraction. Her performance on the MMSE 2 standard version was in the borderline range with a raw score of 21/30, T score of 29, percentile rank of 2. She is 1/5 for serial sevens, 2/2 for naming, 1/1 for repetition, 3/3 for auditory comprehension. She could read and follow a single command and write a sentence. The patient was unable to accurately copy a simple geometric design. Additionally, handwriting was micrographic. Clock drawing was within normal limits. Subtle difficulty though was noted in visual spatial construction. Performance in letter fluency was extremely low with a raw score 7 and a T score of 25, first percentile. Category fluency was a raw score of 19, T score of 30, percentile rank of 2 which is in the borderline range. Overall, total fluency with a raw score of 26 and a T score 28 which a percentile rank of 1. The patient is presenting with deficits in neurocognitive functioning that indiclude memory, concentration and attention and visual spatial organization. Additionally, higher level executive functioning is showing diminished performance with greater deficits in letter compared to category fluency. This type of presentation suggests a neurodegenerative disorder that has Parkinsonian type features. Additionally vascular disease appears to be contributing. 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 RECOMMENDATIONS: The patient will require assistance with instrumental activities of daily living. Difficulty with planning and problem solving will also likely interfere with independence. Speech therapy will be of benefit to assist in the development and implementation of compensatory strategies. Family education will also be helpful along with educating her current assisted living environment about the extent and type of cognitive deficits along with ways to assist in her compensation. [address] [address] CONSULTATION Name: ROHAN RITCHIE Room #: 505-P [facility] IN M.R.#: [id number] Admission: 09/10/18 ������������������ Attend Phys: Kj Gottlieb MD Discharge: ������������������ Date of : 33 Report #: [id number] Thank you very much for allowing me to provide the consultation on this patient. ��������������������������������������������� <ELECTRONICALLY SIGNED> ���������������������������������������� By: Kailash Galvez, PhD ��������������������������������������������� 09/21/18 1511 1801 0747 Kailash Galvez, PhD /nt
[2018-09-21 20:00] VITALS: BP 140/90
--- NOTE | 2018-09-22 03:57 | NUR ---
PATIENT IS ALERT AND ORIENTED. PATIENT IS UP TIMES ONE. PATIENT CAN GROOM AND REQUIRES LITTLE ASSISTANCE WITH GETING DRESSED. PATIENT HAS ARTHRITISIS IN RT HAND NO WEAKNESS NOTED. PATIENT IS UP TIMES ONE WITH GAIT BELT AND WALKER. PATIENT NEEDS REMINDING TO TURN IN BED. PATIENT BARRIER CREAM APPLIED TO COCCYX. PATIENTS LBM WAS THE 4TH. PATIENT TAKES PILLS WITH APPLESAUCE. PAITENT HAS TRACE EDEMA ON BLE LEGS ARE ELEVATED IN BED. PATEINT IS RESTING COMFORTABLY IN BED. WCM. PATIENT IS PROGRESSING TO GOALS. PENDING DC THE 8TH.
[2018-09-22 07:20] VITALS: BP 1124/71
--- NOTE | 2018-09-22 11:09 | NUR ---
ASSUMED CARE OF PT AT 0715. PT IS A&OX4. IS ON ROOM AIR. DENIES PAIN. HAS SOME NOTED RIGHT SIDED WEAKNESS. IS UP WITH 1 ASSIST, GB, W TO BATHROOM & DINNING ROOM FOR ALL MEALS. FALL PRECAUTIONS & HOURLY ROUNDING MAINTAINED. PT IS CURRENTLY USING BSC AT . THIS NURSE WAS INFORMED BY [facility] NURSE THAT PT IS TO BEGIN WALKING TO BATHROOM AT HS STARTING TOMORROW & NO MORE BSC USAGE. PT IS STABLE. LABS & VITALS REVIEWED. WILL CONTINUE TO MONITOR.
[2018-09-22 19:20] VITALS: BP 123/65
--- NOTE | 2018-09-23 00:53 | NUR ---
PT ASSESSMENT COMPLETED AND VSS. MEDS GIVEN ORDERED AND WELL TOLERATED. FALL PRECAUTIONS IN PLACE. UP TO THE BSC WITH ASST/GAIT/WALKER. VOIDING MODERATE AMOUNT OF YELLOW URINE. PT SLEEPING ON HER SIDE. BARRIER CREAM APPLIED TO BOTTOM. SLEEPING WELL. DENIES NEEDS. WILL CONTINUE TO MONITOR FREQUENTLY.
[2018-09-23 09:04] VITALS: BP 116/68
--- NOTE | 2018-09-23 12:12 | NUR ---
ASSUMED CARE OF PT AT 0715. PT IS A&OX4. IS STABLE. IS ON ROOM AIR. DENIES PAIN. IS UP WITH 1 ASSIST, GB, WALKER. FALL PRECAUTIONS & HOURLY ROUNDING CONTINUED THIS SHIFT. LABS & VITALS REVIEWED. PT CONTINUES TO PROGRESS TOWARD CARE PLAN GOALS. PT IS CURRENTLY SITTING IN THE DINNING ROOM EATING LUNCH. WILL CONTINUE TO MONITOR.
--- NOTE | 2018-09-23 15:33 | NUR ---
I have reviewed the documentation by ERIC IGLESIAS from 09/23/18 to 09/23/18 and I concur with it. CARROL PETERS
[2018-09-23 19:50] VITALS: BP 102/48
--- NOTE | 2018-09-24 02:39 | NUR ---
PATIENT ASSESSED AND IS ALERT X 4. SKIN WARM AND DRY. RESP EVEN AND UNLABORED. UP WITH 1 PERSON ASSIST AND WALKER AND GAIT BELT. DENIES ANY PAIN. WEARS A BREIF AND IS CONT OF BOWEL AND BLADDER. WALKS WITH STEADY GAIT. TAKES MEDICATION WITH APPLESAUSE 1 PILL AT A TIME SWOLLOWS WELL. ON ROOM AIR. MECH SOFT WITH GROUND MEAT AND THIN LIQUIDS. HAS RIGHT SIDE WEAKNESS NOTED AND LEFT SOME WEAKNESS ALSO FROM CVA. VS STABLE. REMAINS A FALL RISK. CONT PLAN OF CAre.
[2018-09-24 08:02] VITALS: BP 119/71
--- NOTE | 2018-09-24 09:55 | NUR ---
ASSUMED CARE AT APPROX 0715. REPORTS SLEPT GOOD LAST NIGHT. PATIENT A/O X4. DENIES PAIN, SOB, N/V. UP X1 SBA GB AND WALKER TO BATHROOM. HAD SMALL FORMED BM YESTERDAY. WALKS TO BATHROOM AND ABLE TO WIPE HERSELF. REDNESS IS BETTER DURING DAY. BARRIER CREAM APPLIED EARLIER. VSS. PATIENT PARTICIPATING IN THERAPY AND UP TO DINNING ROOM FOR MEALS. CONTINUE TO BE ON [facility] SOFT DIET. EATING ABOUT 50% BREAKFAST. FALL PRECAUTIONS IN PLACE. PATIENT CALLS APPROPRIATELY FOR ASSISTANCE. FOAM DRESSING TO BILATERAL GREAT TOES FOR COMFORT. FALL PRECAUTIONS IN PLACE. WILL CONTINUE TO MONITOR. RESTING IN RECLINER WATCHINT TV AND WAITING FOR HER NEXT THERAPY.CALL LIGHT WITHIN REACH.
--- NOTE | 2018-09-24 12:49 | NUR ---
team meeting, recommendation: aureliano 09/25/18 back to [facility] with (pt,ot) gini
--- NOTE | 2018-09-24 14:44 | NUR ---
I have reviewed the documentation by ERIC IGLESIAS from 09/24/18 to 09/24/18 and I concur with it. CARROL PETERS
[2018-09-24 20:00] VITALS: BP 129/72
--- NOTE | 2018-09-25 03:08 | NUR ---
ANTICIPATING LEAVING TODAY WHEN DAUGHTER CAN PICK HER UP. STEADY GAIT UP TO BATHROOM FOR VOID, WEARS BRIEF FROM HOME FOR MINIMAL USI. TURNING SELF IN BED
[2018-09-25 08:00] VITALS: BP 120/70
[2018-09-25] MEDS ORDERED: ASPIRIN81 M2 PO (09:14)
[2018-09-25] MEDS ORDERED: LIPITOR10 MG PO (09:14)
[2018-09-25 09:17] VITALS: BP 120/70
--- NOTE | 2018-09-25 09:34 | NUR ---
ASSUMED CARES AT 0700. PT AWAKE, ALERT AND ORIENTED*4. DENIES PAIN. VITALS REMAINED STABLE. SKIN REMAINS INTACT. CONTINUES TO HAVE RIGHT UPPER AND LOWER EXTREMITY WEAKNESS AND MILD EDEMA. PT ATE 75% OF HER BREAKFAST AND TOLERATED WELL. BATH GIVEN BY NURSING THIS AM, PT HAD STRESS INCONTINENCE. UP WITH SBA, GAITBELT AND WALKER AND TOLERATED WELL. Q1H VISUAL CHECKS. CALL LIGHT WITHIN REACH. FALL PRECAUTIONS IN PLACE. PT TO DC TO [facility] WITH DAUGHTER AT 1030, REPORT TO BE GIVEN TO FACILITY
--- NOTE | 2018-09-26 14:49 | H ---
[facility] [place] [address] HISTORY AND PHYSICAL Name: ROHAN RITCHIE Room #: 505-P [facility] IN M.R.#: [id number] Admission: 09/10/18 ������������������ Attend Phys: Kj Gottlieb MD Discharge: 09/25/18 ������������������ Date of : 33 Report #: [id number] THIS REPORT FOR: //name// CC: Kj Sainz DATE OF SERVICE: 09/10/2018 HISTORY OF PRESENT ILLNESS: The patient is an 83-year-old white female with a prior history of a cerebrovascular accident with right-sided hemiparesis as a residua, was admitted from an assisted living facility with worsening weakness of her right upper and right lower extremity. She was having more and more problems with her functional mobility. She typically utilizes a walker during the day, but she is having more and more problems using the right arm and the right leg and was actually needing to be lifted up to the wheelchair and to the bathroom, which was unusual for her. She was admitted to [facility] and evaluated for increased right-sided weakness. She was seen by Neurology. MRI revealed multiple old infarcts, right frontal bilateral cerebellar, left frontal and small old left parietal. She has the right-sided weakness. MRI of the cervical, thoracic and lumbar spine showed significant degenerative arthritis without obvious etiology. The recommendation is that the patient eventually follow up with her outpatient neurologist at . The patient was also diagnosed with urinary tract infection and was noted to have encephalopathy and has been on IV antibiotics. She was noted to have a significant functional decline and has been admitted for acute in-hospital inpatient rehabilitation. PAST MEDICAL HISTORY: Includes the prior cerebrovascular accident with right hemiparesis. She had a prior ankle fracture on 03/07/2019. MEDICATIONS: Please see the full medication listing. ALLERGIES: TORADOL, KEFLEX, DOLOBID, ERYTHROMYCIN, DITROPAN AND PENICILLIN. SOCIAL HISTORY: She lives in an assisted living facility, was able to do quite well with the walker level, needed assistance with bathing. She used a wheelchair at night. She has an involved daughter. She apparently was pushed in her wheelchair to have breakfast, but otherwise walked to lunch and dinner, mostly with the walker. She did get minimal assistance premorbidly, typically with dressing and bathing. She had indicated that she did most of her dressing herself. REVIEW OF SYSTEMS: No complaints of chest pain, shortness of breath, abdominal discomfort. She has the right-sided weakness. No focal extremity pain complaints. No fever, chills, bowel or bladder changes. No visual issues. Denied any problems swallowing. [address] [address] HISTORY AND PHYSICAL Name: ROHAN RITCHIE Room #: 505-P [facility] IN M.R.#: [id number] Admission: 09/10/18 ������������������ Attend Phys: Kj Gottlieb MD Discharge: 09/25/18 ������������������ Date of : 33 Report #: [id number] PHYSICAL EXAMINATION: GENERAL: An 83-year-old white female, in no obvious distress. VITAL SIGNS: Last recorded temperature 98.5, pulse 82, respirations 20, and blood pressure 145/78. The patient is alert. HEENT: Appeared to be benign. CHEST: Sounded clear to auscultation. CARDIOVASCULAR: Regular rate and rhythm. ABDOMEN: Bowel sounds positive, nontender. GENITOURINARY AND RECTAL: Deferred. NEUROLOGIC: Cranial nerves grossly intact. Facies are symmetric. No obvious visual field neglect was noted. EXTREMITIES: She has functional range of motion of the upper and lower extremities. She has chronic arthritic changes. Strength of the left upper extremity is a grade 4/5. Right upper extremity is 3+ to 4-. Left lower extremity strength is 4/5. Right lower extremity is probably 3+ to 4-/5. DTRs are trace to 1. She does reasonably well with simultaneous stimulation. There is no clonus. Functionally, she has been mod assist, sit to stand, min assist, ambulating 35 feet with a front-wheeled walker. ASSESSMENT: 1. 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 2. History of multiple cerebrovascular accidents. 3. Encephalopathy. 4. Urinary tract infection, on antibiotics. 5. Hypertension. 6. History of right rotator cuff injury/degenerative arthritis. 7. Prior history of pneumothorax secondary to rib fracture. 8. Hypertension. PLAN: The patient is admitted for acute in-hospital inpatient rehabilitation. From a postadmission physician evaluation perspective, there are no relevant changes since the preadmission screening. Please see the review of prior and current medical and functional conditions and comorbidities. Please see the patient's previous and current functional status. As far as risk of complications, the patient has multiple medical comorbidities as noted above. The initial plan of care involves the interdisciplinary acute inpatient rehabilitation program with goal of maximizing her functional independence, so she can hopefully return back to her prior living situation. Measurable functional goals would be for the patient to become modified independent with transfers, mobility, ADLs as well as cognition, communication, so she can return back to her home setting. Measurable functional goals would be for her to achieve a functional level prior to her previous level at the assisted living. The prognosis is reasonably good with estimated length of stay probably at least [facility] [address] [place] [address] HISTORY AND PHYSICAL Name: ROHAN RITCHIE Room #: 505-P [facility] IN M.R.#: [id number] Admission: 09/10/18 ������������������ Attend Phys: Kj Gottlieb MD Discharge: 09/25/18 ������������������ Date of : 33 Report #: [id number] 10 days to 2 weeks pending progress. Potential barriers would include her above noted medical comorbidities and decreased functional status. ��������������������������������������������� <ELECTRONICALLY SIGNED> ���������������������������������������� By: Kj Gottlieb MD ��������������������������������������������� 09/26/18 1449 0854 0919 Kj Gottlieb MD /nt
--- NOTE | 2018-09-26 14:49 | PLAN ---
[facility] [place] [address] REHAB UNIT PLAN OF CARE Name: ROHAN RITCHIE Room #: 505-P DIS IN M.R.#: [id number] Admission: 09/10/18 ������������������ Attend Phys: Kj Gottlieb MD Discharge: 09/25/18 ������������������ Date of : 33 Report #: [id number] THIS REPORT FOR: //name// CC: Kj Sainz DATE OF SERVICE: 09/13/2018 PROGRESS NOTE/OVERALL PLAN OF CARE SUBJECTIVE: The patient is seen back today in followup. She is in no distress. Last recorded temperature 97.7, pulse 60, respirations 16, blood pressure 138/66. The patient is working in therapies. Transfers are min assist. Gait min assist 150 feet, 4-wheeled walker. Occupational therapy, lower body dressing is max assist. Upper body dressing is mod assist. In speech therapy, she has moderate cognitive deficits with moderate memory deficits. ASSESSMENT: 1. 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 2. History of multiple prior cerebrovascular accidents. 3. Encephalopathy. 4. Urinary tract infection, on antibiotics. 5. Hypertension. 6. History of right rotator cuff injury/degenerative arthritis. 7. Prior history of pneumothorax secondary to rib fracture. 8. Hypertension. PLAN: The overall plan of care is based on the preadmission screen, post-admission physician evaluation and information garnered from therapy assessments. 1. Estimated length of stay is probably at least 10 days to 2 weeks pending progress. 2. Medical prognosis is reasonably good. 3. Anticipated interventions includes the interdisciplinary acute inpatient rehabilitation program with the goal of maximizing the patient's functional independence, so she can hopefully return back to her prior living situation. 4. Anticipated functional outcomes would be for the patient to become modified independent with transfers, mobility, and ADLs at the walker level. 5. Discharge destination would be back to her assisted living facility at the walker level. 6. Expected therapy by discipline includes PT, OT, and speech 1 hour per day [address] [address] REHAB UNIT PLAN OF CARE Name: ROHAN RITCHIE Room #: 505-P [facility] IN .R.#: [id number] Admission: 09/10/18 ������������������ Attend Phys: Kj Gottlieb MD Discharge: 09/25/18 ������������������ Date of : 33 Report #: [id number] each five days a week throughout the duration of the acute inpatient rehabilitation stay. ��������������������������������������������� <ELECTRONICALLY SIGNED> ���������������������������������������� By: Kj Gottlieb MD ��������������������������������������������� 09/26/18 1449 0913 0207 Kj Gottlieb MD /nt
== END 2018-09-25 10:20 | DRG 56 ==
LOC: ENTRNSPT 09-25 10:12 → EDTRNSPTSTS 09-25 10:14
PROVIDERS: Nurse Practitioner; Nurse Practitioner Family; ADMIT Physical Medicine & Rehabilitation
DX: I69.351 Hemiplegia and hemiparesis following cerebral infarction affecting right dominant side (principal); I63.9 Cerebral infarction, unspecified; G93.40 Encephalopathy, unspecified; N39.0 Urinary tract infection, site not specified; I10 Essential (primary) hypertension; B96.1 Klebsiella pneumoniae [K. pneumoniae] as the cause of diseases classified elsewhere; G20 Parkinson's disease; F02.80 Dementia in other diseases classified elsewhere, unspecified severity, without behavioral disturbance, psychotic disturbance, mood disturbance, and anxiety; M19.011 Primary osteoarthritis, right shoulder; Z86.73 Personal history of transient ischemic attack (TIA), and cerebral infarction without residual deficits; Z87.81 Personal history of (healed) traumatic fracture; Z79.899 Other long term (current) drug therapy; Z88.1 Allergy status to other antibiotic agents; Z88.0 Allergy status to penicillin; Z88.8 Allergy status to other drugs, medicaments and biological substances
CPT/HCPCS: 10112

== ENCOUNTER 2019-02-11 11:14 | Inpatient (IN) | payer OTHER, BC ==
[~2019-02-11] VITALS: Ht 152.4 cm; Wt 66.2 kg
[~2019-02-11 11:14] MED LIST changes: +ASPIRIN81 M2 PO; +LEVAQUIN 500 M500 M2 PO; +LIPITOR10 MG PO
[2019-02-11 11:42] LABS: ABSOLUTE NEUTROPHILS 10.5 thou/uL (1.4-8.2); BASOPHILS 0.3 % (0.0-2.0); EOSINOPHILS 0.3 % (0.0-3.0); HEMATOCRIT 40.1 % (37.0-47.0); HEMOGLOBIN 13.1 gm/dL (12.0-15.0); MCHC 32.5 g/dL (28.0-37.0); MCV 79.9 fL (80.0-100.0); MONOCYTES 7.1 % (1.0-8.0); PLATELET COUNT 228 thou/uL (150-400); POLYS 86.3 % (36.0-66.0); RBC 5.02 mil/uL (4.20-5.00); RDW 18.6 % (10.5-14.5); WBC 12.2 thou/uL (4.0-11.0)
[2019-02-11 11:50] LABS: ANION GAP 8 mmol/L (7-16); BUN 25 mg/dL (7-18); CALCIUM 9.5 mg/dL (8.5-10.1); CHLORIDE 104 mmol/L (98-107); CO2 25 mmol/L (21-32); CREATININE 1.1 mg/dL (0.6-1.0); GLUCOSE 92 mg/dL (74-106); POTASSIUM 4.2 mmol/L (3.5-5.1); SODIUM 137 mmol/L (136-145)
[2019-02-11 11:53] LABS: APTT 26.2 Seconds (24.5-32.8)
[2019-02-11 12:06] LABS: ALBUMIN 3.1 g/dL (3.4-5.0); SGOT 19 U/L (15-37); TOTAL BILIRUBIN 0.5 mg/dL (<0.1-1.0); TOTAL PROTEIN 7.3 g/dL (6.4-8.2)
[2019-02-11 12:20] LABS: SGPT 11 U/L (30-65); TROPONIN-I <0.06 ng/mL (<0.06)
[2019-02-11 12:38] LABS: ANISOCYTOSIS 1+; PLATELET ESTIMATE NORMAL
[2019-02-11] MEDS ORDERED: TRAMADOL 50 MG50 MG PO (13:05)
[2019-02-11] MEDS ORDERED: PLAVIX 75 MG TA75 M1 PO (13:05)
[2019-02-11] MEDS ORDERED: TOPROL XL25 MG PO (13:06)
[2019-02-11] MEDS ORDERED: SENNA S TABLET1 EACH PO (13:07)
[2019-02-11] MEDS ORDERED: METHOCARBAMOL500 M2 PO (13:07)
[2019-02-11] MEDS ORDERED: VOLTAREN GEL 1100 G1 TOP (13:08)
[2019-02-11] MEDS ORDERED: DULCOLAX10 MG RECTAL (13:09)
--- NOTE | 2019-02-11 14:06 | NUR ---
VASCULAR ACCESS ASKED TO SEE PT FOR PIV. R ARM IS CONTRACTED WITH VERY THIN SMALL VESSELS. USG USED ON L ARM CEPHALIC AND BASILIC VERY SMALL UNABLE TO PLACE PIV, BRACHIAL VESSEL IS NONCOMPRESSABLE IN UPPER ARM PER USG SO THERE IS NOTHING SEEN WITH OR WITOUT USG. VIDAL SMITH NOTIFIED THAT IF FURTHER ACCESS NEEDED PT WILL NEED TO BE SEEN BY IR. UNABLE TO DO CENTRAL LINE,PT RECIEVING TPA AT PRESENT AREA ON LEFT FOREARM BLEEDING FROM PREVIOUS ATTEMPTED PIV, RN HOLDING PRESSURE TO THE AREA
[2019-02-11 15:33] LABS: URINE BILIRUBIN NEGATIVE (Negative); URINE BLOOD 3+ (Negative); URINE CLARITY CLEAR; URINE COLOR YELLOW; URINE GLUCOSE-RANDOM* NEGATIVE (Negative); URINE KETONES NEGATIVE (Negative); URINE PROTEIN (DIPSTICK) 2+ (Negative); URINE UROBILINOGEN 0.2 E.U./dl (0.2-1.0)
[2019-02-11 15:36] LABS: URINE LEUKOCYTES-REFLEX 3+ (Negative); URINE NITRITE-REFLEX POSITIVE (Negative)
[2019-02-11 15:45] LABS: BACTERIA-REFLEX >30 Many /HPF (None Seen); CASTS None Seen /LPF (None Seen); CRYSTALS None Seen /LPF (None Seen); SQUAMOUS None Seen /LPF (0-3); URINE RBC >20 Many /HPF (0-2); URINE WBC-REFLEX >25 Many /HPF (0-5); WBC CLUMPS Many (None Seen)
--- NOTE | 2019-02-11 18:38 | NUR ---
REPORT RECEIVED FROM SUPERVISOR WALL MIRROR DEPARTMENT. RECEIVED PT IN ICU #241 WITH DIAGNOSIS: CVA POST TPA ADMINISTRATION. SEE NIHSS ASSESSMENTS, VITAL SIGNS/NEURO CHECK FLOWSHEET FOR DETAILS. PASSED SWALLOW STUDY. TO MRI PER CART WITH SET STAFF FITTER, 2L/NC, ACCOMPANIED BY SUPERVISOR QUALITY CONTROL. SUNNY DONAHUE, DAUGHTER PRESENT- UPDATED ON PLAN OF CARE. ADMISSION CONSENTS SIGNED. MARCOS CARDIOLOGY LEARNING DESIGNER AND DR. HAWK PRESENT TO SEE PT. DR. DE LA O PRESENT TO SEE PT, THEN HE SPOKE WITH SUNNY, DAUGHTER. CONSUMED SMALL AMOUNT OF EVENING MEAL. PT PROGRESSING.
[2019-02-11 19:00] VITALS: BP 110/52
[2019-02-11 20:00] VITALS: BP 112/59
[2019-02-11 21:00] VITALS: BP 112/55
[2019-02-11 22:00] VITALS: BP 110/46
[2019-02-11 23:00] VITALS: BP 115/39
[2019-02-12] VITALS (28 sets, daily range): BP systolic 80–186; BP diastolic 39–81
--- NOTE | 2019-02-12 07:00 | NUR ---
Pt slept well through the night with stable VS and no c/o pain. No changes in neuro status observed. Pt voiding per bedpan without difficulty and no BM observed. Continue with POC.
--- NOTE | 2019-02-12 08:00 | EKG ---
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: ts : 1935 Requested By: Jovan Santos Order Number: [id number] MD: Vik Perdue Measurements Intervals [place] Rate: 76 P: -4 SC: 154 QRS: -50 QRSD: 98 T: -1 QT: 365 QTc: 411 Interpretive Statements Sinus rhythm LAD, consider left anterior fascicular block Left ventricular hypertrophy Probable anterior infarct, age indeterminate Compared to ECG 09/07/2018 02:52:35 Electronically Signed On 02-12-2019 8:00:34 CDT by Vik Perdue [email or web address] <ELECTRONICALLY SIGNED> By: Vik Perdue MD 02/12/19 0800 1137 113 Vik Perdue MD /EPI
--- NOTE | 2019-02-12 08:02 | EKG ---
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: : 1935 Requested By: Jovan Santos Order Number: [id number] MD: Vik Perdue Measurements Intervals [place] Rate: 93 P: 8 ID: 149 QRS: -50 QRSD: 96 T: 63 QT: 367 QTc: 457 Interpretive Statements Sinus rhythm LAD, consider left anterior fascicular block Abnormal R-wave progression, late transition Left ventricular hypertrophy Compared to ECG 09/07/2018 02:52:35 Electronically Signed On 02-12-2019 8:01:48 CDT by Vik Perdue [email or web address] <ELECTRONICALLY SIGNED> By: Vik Perdue MD 02/12/19 0801 1340 1340 Vik Perdue MD /[facility]
--- NOTE | 2019-02-12 09:50 | 2DMMODE ---
[facility] [address] [place] [address] 2 D/M-MODE ECHOCARDIOGRAM Name: ROHAN RITCHIE Room #: 241-P ADM IN M.R.#: [id number] Admission: 02/11/19 Attend Phys: Silvia De Luna Discharge: Date of : 33 Report #: [id number] THIS REPORT FOR: //name// APPROVED REPORT Study performed: 02/12/2019 08:08:01 EXAM: Comprehensive 2D, Doppler, and color-flow Echocardiogram Patient Location: ICU Room #: 241 Status: routine BSA: 1.63 HR: 79 bpm BP: 135/60 mmHg Rhythm: NSR Other Information Study Quality: Adequate Indications CVA/TIA Echo Enhancing Agent Indication: Rule Out Septal Defect Agent(s) / Amount(s) Used: Agitated Saline 8 cc 2D Dimensions RVDd: 42.57 mm IVSd: 8.19 (7-11mm) LVOT Diam: 20.33 (18-24mm) LVDd: 40.77 mm PWd: 8.19 (7-11mm) Ascending Ao: 30.50 (22-36mm) LVDs: 29.37 (25-40mm) Aortic Root: 31.35 mm IVC: 16.00 mm Volumes Left Atrial Volume (Systole) Single Plane 4CH: 25.75 mL Single Plane 2CH: 32.57 mL LA ESV Index: 23.00 mL/m2 Aortic Valve AoV Peak Johnathan.: 2.21 m/s AO Peak Gr.: 19.55 mmHg LVOT Max P.51 mmHg AO Mean Gr.: 10.17 mmHg LVOT Mean P.25 mmHg AO V2 Mean: 1.50 m/s LVOT Max V: 1.06 m/s AO V2 VTI: 38.85 cm LVOT Mean V: 0.70 m/s [facility] [place] [address] 2 D/M-MODE ECHOCARDIOGRAM Name: ROHAN RITCHIE Room #: 241-P ADM IN M.R.#: [id number] Admission: 02/11/19 Attend Phys: Silvia De Luna Discharge: Date of : 33 Report #: [id number] LUCY (VTI): 1.72 cm2 LVOT V1 VTI: 20.56 cm LUCY Vmax: 1.56 cm2 SV (LVOT): 66.74 mL Mitral Valve E/A Ratio: 0.9 MV Decel. Time: 261.91 ms MV E Max Johnathan.: 1.08 m/s MV A Johnathan.: 1.27 m/s MV PHT: 75.96 ms IVRT: 69.20 ms Pulmonary Valve PV Peak Johnathan.: 1.07 m/s PV Peak Gr.: 4.57 mmHg Tricuspid Valve TR Peak Johnathan.: 2.99 m/s RAP Estimate: 5.00 mmHg TR Peak Gr.: 35.68 mmHg PA Pressure: 40.00 mmHg Left Ventricle The left ventricle is normal size. There is normal left ventricular wall thickness. The left ventricular systolic function is normal. The left ventricular ejection fraction is within the normal range. LVEF is 55-60%. Mild diastolic dysfunction is present (impaired relaxation pattern). Right Ventricle The right ventricle is normal size. The right ventricular systolic function is normal. Atria The left atrium size is normal. Injection of bubbles documented no interatrial shunt. The right atrium size is normal. Aortic Valve The Aortic valve is sclerotic. Trace aortic regurgitation. Mitral Valve There is mild mitral annular calcification. Trace mitral regurgitation. No evidence of mitral valve stenosis. Tricuspid Valve The tricuspid valve is normal in structure. Mild tricuspid regurgitation. Estimated PAP is 40mmHg. [facility] [address] [place] [address] 2 D/M-MODE ECHOCARDIOGRAM Name: ROHAN RITCHIE Room #: 241-P [facility] IN .R.#: [id number] Admission: 02/11/19 Attend Phys: Silvia De Luna Discharge: Date of : 33 Report #: [id number] Pulmonic Valve Pulmonic valve is not well visualized. Great Vessels The aortic root is normal in size. The ascending aorta is normal in size. IVC is normal in size and collapses >50% with inspiration. Pericardium There is no pericardial effusion. <Conclusion> The left ventricle is normal size. There is normal left ventricular wall thickness. The left ventricular systolic function is normal. Mild diastolic dysfunction is present (impaired relaxation pattern). The right ventricle is normal size. Injection of bubbles documented no interatrial shunt. The left atrium size is normal. The Aortic valve is sclerotic. Trace mitral regurgitation. Mild tricuspid regurgitation. Estimated PAP is 40mmHg. <ELECTRONICALLY SIGNED> By: Saqib Garnica MD 02/12/1952 9 9 Saqib Garnica MD /INF
--- NOTE | 2019-02-12 10:22 | NUR ---
Case opened to follow for dc planning. Pt is currently in ICU s/p TPA for possible CVA. She is getting an EEG now for r/o seizures. Crop Roller visited with the pt's dtr/dpoa Radha. A copy of the pt's DPOA for health care is on the chart. CM role introduced. Pt is known to cm from a previous admission four months ago. She was diagnosed with a cva and had a 5N acute rehab stay. She did well with therapy and was dc'd back to her [facility] apt at [facility] with [facility]. HH is no longer see her.She uses a rwalker for gait down to the dining room. They are able to provide her mech soft diet. ST cleared her to resume her diet with thin liquids today. PT/OT evals pending. Will ask for 5N consult as well. Dtr open to acute rehab or SNF at [place] pending the care team recommendations. They would like to use [facility] again if hh recommended. Dc case planner to fax update to the liason at [facility]. Will follow for possible acute rehab, snf or hh referrals at or.
--- NOTE | 2019-02-12 11:30 | NUR ---
echo performed, then immediately eeg performed, therefore unable to eat breakfast. incontinent of urine, Ernestine RN placed female catheter for pt comfort. now pt shaking, tremoring, pale, weak, temp 100.9, nauseated. zofran iv given for nausea. family remains at bedside.
--- NOTE | 2019-02-12 15:13 | NUR ---
PATIENT SEEN BY DR. SWEET THIS DATE. PHYSICAL THEREAPY REQUESTED BY DR. SWEET TO RE-EVAL PATIENT. PATIENT WITH DYSPHAGIA, ENCEPALOPATHY, AND DESTATING WHEN PATIENT GETS OUT OF BED. WILL CONTINUE TO FOLLOW. THANK YOU FOR THIS REFERRAL.
--- NOTE | 2019-02-12 15:18 | NUR ---
PATIENT SEEN BY DR. SWEET THIS DATE. PATIENT IS A POTENTIAL REHAB CANDIDATE. WILL NEED TO SEE HOW PATIENT DOES IN THERAPIES. WILL CONTINUE TO FOLLOW. THANK YOU FOR THIS REFERRAL.
--- NOTE | 2019-02-12 16:05 | NUR ---
when performing nihss due to inconsistent and conflicting results, unable to score pt for visual and sensory categories.
--- NOTE | 2019-02-12 16:17 | NUR ---
FAXED CLINICAL UPDATE TO [facility] LEFT MSG WITH ADM GARCIA THAT UPDATE FAXED AND ALSO LEFT MSG FOR DYLAN THAT PT MIGHT NEED SKILLED AT DISCHARGE. DCP TO FOLLOW.
--- NOTE | 2019-02-12 17:40 | NUR ---
previously updated Dr. De León on pt status, febrile 104.0 axi, pale. per order blood cx x1 obtained, ns started at 100cc/hr. now bp 80/39, map-51, screening positive for sepsis, inconsistent and conflicting results generate nihss incomplete scoring. Dr. De León notified. ns 500cc bolus infusing and lactic acid ordered. transfer on hold at this time.
--- NOTE | 2019-02-12 19:43 | NUR ---
report given to samir Sanchez. completed nihss together at shift change, see documentation.
[2019-02-13] VITALS (14 sets, daily range): BP systolic 113–139; BP diastolic 53–73
--- NOTE | 2019-02-13 00:54 | HC ---
[facility] [place] [address] CONSULTATION Name: ROHAN RITCHIE Room #: 241-P ADM IN M.R.#: [id number] Admission: 02/11/19 Attend Phys: Silvia De León Discharge: Date of : 33 Report #: [id number] THIS REPORT FOR: //name// CC: Silvia Sainz DATE OF SERVICE: 02/11/2019 HISTORY OF PRESENT ILLNESS: This is an 83-year-old female patient who is not able to provide any reliable history. I talked to the patient's daughter who presented some history. She gives a history that they noticed this symptom around 8:30 or after that when the patient was not able to get up. So initially they have given the history that the symptom onset was after 8:30. I discussed with the patient on the phone with the Emergency Room physician and looks like the patient had pretty pronounced deficit and I asked them that given the option to the family about the TPA. I did tell them that they need to discuss that the chances of having a bleed is high in her case because of her age and Plavix, but if the deficit is there, then the chances of recovery is also poor in this patient. Emergency Room physician talked to the family excluded any contraindication for TPA and started the patient on TPA as I understand. I came to see this patient and at that time, the patient was receiving the TPA and I talked to the family in great detail. The history is much more complicated. She apparently had multiple strokes in the past. They do not know the exact duration, but it was definitely more than 3 months. She has spasticity and weakness on the right side and that is old, but has become worse. She lives in assisted living. She has ambulation issue as well as difficulty with walking. She has a balance problem. She did undergo a monitor of her heart. I am not sure what the indication was, but apparently noticed a short run of either atrial fibrillation or atrial flutter. I do not have that report with me. She had these episodes which comes and goes, but this has been most severe. She does have multiple other histories like breast cancer, osteoporosis, cholecystectomy, but does not have any contraindication for MRI. She is on Plavix. This was started after the rhythm abnormality of her heart was found. REVIEW OF SYSTEMS: A 14-point review of system was positive for multiple other things, but did not indicate there was any contraindication for TPA. She did have trauma with rib fractures, but that was in May. PAST MEDICAL HISTORY: Positive for multiple episodes which has been described as TIA. FAMILY HISTORY: Unremarkable. SOCIAL HISTORY: She has a daughter. She has given me verbal permission to talk to the family and they and the daughter can make the final decisions for her that is about the medical care including code status. [address] [address] CONSULTATION Name: ROHAN RITCHIE Room #: 241-P ADM IN M.R.#: [id number] Admission: 02/11/19 Attend Phys: Silvia De León Discharge: Date of : 33 Report #: [id number] PHYSICAL EXAMINATION: Indicate she is alert. She is responsive. She is somewhat irritable. It is difficult to do full examination, but her memory is significantly diminished. Her facial weakness is there on the right side, right arm is markedly spastic and markedly weak, right leg is weak. She can still speak, but her memory is poor. I do not see any rhythm abnormality of the heart. There is some question that one of the strips may have shown some atrial fibrillation or flutter. We cannot find that. IMPRESSION AND DISCUSSION: 1. I had a long and multiple discussions with the patient and the family. I discussed with them that the findings are suggestive of possible ischemic event. I told them it is a presumptive diagnosis at the moment and we have not confirmed the diagnosis. I discussed with them that TPA can be given, but TPA has its own problem in this patient. She is an 83-year-old, she is on Plavix and that will increase her chances of having an intracranial bleed, which is catastrophic and many times I discussed with them that I do not know whether she is in 3-hour window or 4-1/2 hour window. In the original study of 4-1/2 hour window, the patient with age of more than 80 were excluded from the study. Recently, there has been a trend to give the patients an option if he or she wants to try TPA, but that is not an FDA approved treatment. Family understood that. It looked like Emergency Room physician has already explained to them in detail about the TPA and its potential complication. They had wanted to proceed with TPA and the Emergency Room physician has already started the patient TPA and so far, there is no complication. I discussed with the family again that they need to decide about no code or a full code. I talked to the patient also. The patient tells me that I should talk to the daughter and she can make the decision for her. My strong recommendation was that if the patient bleeds, we should not resuscitate her and should make no code. Even without that no code status can be considered because her disability appeared to be pretty prominent both cognitive as well as ambulation difficulty, but that will be family's decision. I will get an MRI and MRA stat on her to see if any intervention can be done in this patient. I talked to MRI and they told me they will get it done within half an hour. That is reasonable. time and start doing CT angio that is what I will do. All of it was discussed with the patient and the family in detail. About 50 minutes of time was spent taking care of this patient today and majority of that time was spent counseling the patient and the family. There is no good option in this patient and the family understand what we are doing is not an FDA approved but this is a treatment, which can be given and they understand all aspects of it. We will follow up the patient later on today after the MRI is done or if any complication occurred. [facility] [address] [place] [address] CONSULTATION Name: CHAUROHAN Room #: 241-P ADM IN M.R.#: [id number] Admission: 02/11/19 Attend Phys: Silvia De León Discharge: Date of : 33 Report #: [id number] Thank you very much for this referral. <ELECTRONICALLY SIGNED> By: Clint Pitt MD 02/13/19 0054 1339 [id number] Clint Pitt MD /nt
[2019-02-13 02:24] LABS: HEMATOCRIT 36.8 % (37.0-47.0); HEMOGLOBIN 11.9 gm/dL (12.0-15.0); MCH 25.7 pg (26.0-34.0); MCHC 32.3 g/dL (28.0-37.0); MCV 79.6 fL (80.0-100.0); RBC 4.63 mil/uL (4.20-5.00); RDW 18.8 % (10.5-14.5); WBC 7.9 thou/uL (4.0-11.0)
[2019-02-13 02:25] LABS: CALCIUM 9.1 mg/dL (8.5-10.1); CREATININE 1.2 mg/dL (0.6-1.0); POTASSIUM 4.1 mmol/L (3.5-5.1)
[2019-02-13 02:31] LABS: ALBUMIN 2.4 g/dL (3.4-5.0); TOTAL BILIRUBIN 0.6 mg/dL (<0.1-1.0); TOTAL PROTEIN 6.5 g/dL (6.4-8.2)
--- NOTE | 2019-02-13 06:14 | NUR ---
RECEIVED REPORT FROM SARAH IBRAHIM AND ASSUMED PATIENT CARE AT 1900. PATIENT AAOX4 AND ON 2 L NC. PATIENT TAKEN BACK TO CT SCAN FOR FOLLOW UP POST TPA ADMINISTRATION. NO SIGNS OF BLEEDING NOTED. PATIENT VS REMAINED STABLE AND NO ACUTE EVENTS OCCURRED. PATIENT MONITORED CLOSELY.
--- NOTE | 2019-02-13 11:33 | NUR ---
PATIENT ALERT AND ORIENTED, FORGETFUL AT TIMES. VITALS STABLE. ASSESSMENT DOCUMENTED. PATIENT TRANSFERRED TO 359 WITH BELONGINGS. DAUGHTER NOTIFIED BY DANELLE.
--- NOTE | 2019-02-13 13:09 | NUR ---
Pt transfered out of the ICU today. [facility] rehab has evaluated the pt and can accept when medically cleared; possibly tomorrow. Their liason will f/u with the pt's dtr Radha this afternoon. Pt's goal is to return to her HALF-WAY apt at [facility] after rehabing. Care team updated. Will follow.
--- NOTE | 2019-02-13 14:07 | NUR ---
ACUTE TELEPHONE CLERK SPOKE WITH SUNNY, PATIENT'S DAUGHTER. SUNNY WAS IN AGREEMENT FOR PATIENT TO ADMIT TO 5N WHEN MEDICALLY READY. MACHINE SHOP INSPECTOR INFORMED.
--- NOTE | 2019-02-13 18:40 | NUR ---
Patient transferred from ICU at 1100. She is Mostly A+O with brief periods of confusion/ forgetfulness. She is tolerating her diet. She is working towards her discharge goals.
[2019-02-14 03:08] VITALS: BP 94/60
--- NOTE | 2019-02-14 05:54 | NUR ---
PATIENT IS ALERT AND ORIENTED. PATIENT IS UP TIMES ONE. PATIENT IS ON THE EXTERNAL CATH. PATIENT IS ON 2LNC PER COMFORT. PATIENT IS NSR ON TELE. PATIENTS LBM WAS THE 26TH. PATIENT DENIES PAIN. PATIENT IS RESTING COMFORTABLY IN BED. WCM. PATIENT IS PROGRESSING TO GOALS.
[2019-02-14 08:05] VITALS: BP 119/50
[2019-02-14 08:42] VITALS: BP 119/50
[2019-02-14] MEDS ORDERED: LEVAQUIN 500 M500 M2 PO (09:44)
[2019-02-14] MEDS ORDERED: LAMICTAL 25 MG25 MG PO (09:44)
--- NOTE | 2019-02-14 12:08 | NUR ---
DISCHARGE NOTE: BEN reviewed chart and spoke with nursing and attending physician. Pt transferred to 3W from ICU yesterday and is medically stable to discharge to 5N today. Discharge orders completed. BEN notified [facility] rehabilitation director. BEN met with pt at bedside to discuss discharge. Pt is aware and in agreement with plan. Pt asked BEN to noitfy her dtr, Radha. BEN spoke with Radha via phone to provide update. Pt to be admitted to room 512 on 5N. BEN updated [facility] liaison. Rehab CM to follow and assist as needed with discharge planning.
--- NOTE | 2019-02-14 14:23 | NUR ---
care of pt assumed this am @ ~0700. pt awake in bed awaiting breakfast. pt states she does not eat much at breakfast and that lunch is her favorite meal. pt encourged to customize her meals to get what she likes to eat. phone call from the pt's daughter this am on how the pt is doing and plan for day. pt states she does not wear oxygen at home/facility, oxygen titrated off by 1400 today, pt on room air. pt denies co pain, no n/v and no soa today. pt using ext female catheter dt to stress incontinence. pt states she uses briefs at home dt her incontinence. pt given iv antibx, but changed to po upon dc to [facility] for rehab. limb alert applied to narda dt rt breast lumpectomy in 2017. pt is looking forward to dc today as she is ready to get stronger and back to her life. report called to ross/samir on 5N.
--- NOTE | 2019-02-20 11:04 | HC ---
[facility] [place] [address] CONSULTATION Name: ROHAN RITCHIE Room #: 359-P [facility] IN M.R.#: [id number] Admission: 02/11/19 Attend Phys: Silvia De León Discharge: 02/14/19 Date of : 33 Report #: [id number] THIS REPORT FOR: //name// CC: Silvia Sainz DATE OF SERVICE: 02/12/2019 HISTORY OF PRESENT ILLNESS: The patient is an 83-year-old white female previously known to me with a prior history of multiple cerebrovascular accidents, who was admitted with increased right-sided weakness. She noted that her right foot was not working well and she was having more difficulty with attempted ambulation. She also had right facial droop. MRI showed multiple prior CVAs with some encephalomalacia right frontal. She was given TPA with the diagnosis of an acute cerebrovascular accident versus transient ischemic attack. She is currently in the ICU. She is to have an EEG with question of possible seizure disorder as well. We are seeing her in rehabilitation medicine consultation. She has a prior history of multiple cerebrovascular accidents. She had a prior acute rehab stay back in August to early September of this year. History of UTI, hypertension, and right rotator cuff injury. PAST MEDICAL HISTORY: She has had a past history of pneumothorax. Right partial mastectomy, she has a history of hypertension, prior left ankle fracture, history of scoliosis, and osteoporosis. MEDICATIONS: Please see the full medication listing. ALLERGIES: Multiple allergies are as noted. SOCIAL HISTORY: She lives in an assisted living facility. She utilizes a roller walker for which she premorbidly had been able to ambulate back and forth to the dining room. She was on mechanical soft diet. She does have an involved daughter who lives in [place]. REVIEW OF SYSTEMS: No current complaints of chest pain, shortness of breath, and abdominal discomfort. She does not think that she has problems with swallowing. She has had the prior CVAs and had some residual right-sided weakness, but again she was functional up until the time of admission with the worsened right-sided weakness. PHYSICAL EXAMINATION: GENERAL: She is an 83-year-old white female in no obvious distress. VITAL SIGNS: Last recorded temperature 98.9, pulse 85, respirations 16, blood pressure 150/72. She is alert and oriented. HEENT: Appeared to be benign. NEUROLOGIC: Cranial nerves are grossly intact. Nasal prong O2 is in place. [address] [address] CONSULTATION Name: ROHAN RITCHIE Room #: 359-P [facility] IN M.R.#: [id number] Admission: 02/11/19 Attend Phys: Silvia De León Discharge: 02/14/19 Date of : 33 Report #: [id number] She is able to follow basic 1 step commands. Appears appropriate. She does have a depressed right nasolabial fold with a slight right facial droop. EXTREMITIES: Functional range of motion of the left upper and left lower extremity strength is probably a grade 4-/5. Right upper and right lower extremity strength is probably at 3+ to 4-/5. No obvious focal sensory decrease. She has not been able to get up yet in therapies post the TPA. ASSESSMENT: An 83-year-old white female with the following problem list: 1. Increased right-sided weakness. 2. Cerebrovascular accident versus transient ischemic attack, now status post TPA. 3. Rule out seizure disorder, EEG is pending. 4. Prior history of multiple cerebrovascular accidents with some milder residual right-sided weakness. 5. Premorbid walker ambulator. 6. Osteoarthritis. 7. Scoliosis. 8. Hypertension. 9. Hyperlipidemia. 10. Prior history of breast cancer. PLAN: Therapy evaluations are underway. Now that she has completed the TPA. We will be glad to follow along with you regarding her rehab therapy needs. She may warrant another acute in-hospital inpatient rehabilitation stay depending upon her functional level. Discussion with the patient's daughter. We will be glad to follow along with you regarding her rehab therapy needs. <ELECTRONICALLY SIGNED> By: Kj Gottlieb MD 02/20/19 1104 [id number] Kj Gottlieb MD /[facility]
--- NOTE | 2019-02-21 09:23 | EEG ---
[facility] [address] [address] ELECTROENCEPHALOGRAM Name: ROHAN RITCHIE Room #: 359-P [facility] IN M.R.#: [id number] Admission: 02/11/19 Attend Phys: Silvia Torerz Discharge: 02/14/19 Date of : 33 Report #: [id number] THIS REPORT FOR: //name// CC: Silvia Sainz DATE OF SERVICE: 02/12/2019 This patient is having episodes which resembles TIA. The workup for transient ischemic attack has been negative. EEG was done to evaluate the patient for any nonconvulsive seizures arising from the previously infarcted tissue. The patient's background activity is about 9 Hz and 30 microvolt. It is a poorly formed background activity. It is intermixed with theta range slowing on both sides. Photic stimulation was unremarkable. The patient became drowsy and that is associated with bilateral slowing and vertex sharp waves. Throughout the record, no active epileptiform activity was noticed. IMPRESSION: Moderately abnormal EEG because it is disorganized and poorly formed. It does show some paroxysmal slowing, but no spike and slow wave activity. EEG can be normal in a patient with seizure disorder in a significant percentage of people. The patient continued to have recurrent episodes without any explanation. I talked to the and I discussed with them that we can give a trial with Lamictal and see if that helps any and that is what they wanted to do and we put her on small dose of Lamictal, which needs to be adjusted as an outpatient. Thank you very much for this referral. <ELECTRONICALLY SIGNED> By: Clint Pitt MD 02/21/19 0923 [id number] Clint Pitt MD /nt
== END 2019-02-14 15:12 | DRG 872 ==
LOC: ER 11:14 → EROBS 12:40 → 3W 12:40 → ICU 12:40 → 3W 12:40 → ICU 14:26 → 3W 02-13 11:44
PROVIDERS: Emergency Medicine; Psychiatry & Neurology Neuromuscular Medicine; ADMIT Hospitalist
DX: A41.9 Sepsis, unspecified organism (principal); I48.92 Unspecified atrial flutter; N39.0 Urinary tract infection, site not specified; G93.40 Encephalopathy, unspecified; I69.351 Hemiplegia and hemiparesis following cerebral infarction affecting right dominant side; M81.0 Age-related osteoporosis without current pathological fracture; K59.00 Constipation, unspecified; E78.5 Hyperlipidemia, unspecified; M19.011 Primary osteoarthritis, right shoulder; M41.9 Scoliosis, unspecified; L60.0 Ingrowing nail; G40.909 Epilepsy, unspecified, not intractable, without status epilepticus; Z90.49 Acquired absence of other specified parts of digestive tract; Z90.722 Acquired absence of ovaries, bilateral; Z85.3 Personal history of malignant neoplasm of breast; Z90.11 Acquired absence of right breast and nipple; Z87.81 Personal history of (healed) traumatic fracture; Z88.1 Allergy status to other antibiotic agents; Z88.0 Allergy status to penicillin; Z88.8 Allergy status to other drugs, medicaments and biological substances; Z79.899 Other long term (current) drug therapy
CPT/HCPCS: 10078; 10203; 10879

== ENCOUNTER 2019-02-14 10:33 | Inpatient (IN) | payer OTHER, BC ==
[~2019-02-14] VITALS: Ht 160 cm; Wt 64.9 kg
[~2019-02-14 10:33] MED LIST changes: +DULCOLAX10 MG RECTAL; +LAMICTAL 25 MG25 MG PO; +METHOCARBAMOL500 M2 PO; +PLAVIX 75 MG TA75 M1 PO; +SENNA S TABLET1 EACH PO; +TOPROL XL25 MG PO; +TRAMADOL 50 MG50 MG PO; +VOLTAREN GEL 1100 G1 TOP
--- NOTE | 2019-02-14 12:27 | NUR ---
chart review. pt up in bed, noted o2 per 1L/nc. intro to cm, dcp, and team meeting. pt preferrs going by pat. " i wanted to go to rehab were i live but don't have any open beds right now. live in [facility] living. use 4ww . no home oxygen. not sure why put this back on me but say i need it."/pat. dietary delivered lunch tray. superintendent maintenance assisted pt up in bed and going to get lunch. will cont following as needed for dc needs. noted per chart, hh in pas with [facility].
--- NOTE | 2019-02-14 18:29 | NUR ---
PT ARRIVED FROM 3W AT 1500. ALERT AND ORIENTED*4, SOMETIMES FORGETFUL. VITALS STABLE. C/O OXANA HEEL PAIN 3/, HEELS ELEVATED ON PILLOWS. REDNESS AROUND HEELS. HAS BRUSING ON OXANA UPPER ARMS, SITES MARKED TO MONITOR FOR HEALING/WORSENING. PT UP WITH 1 MAX ASSIST, GB AND WALKER. AMBULATED SHORT DISTANCES WITH PT. REPOSITIONED Q2H. Q1H VISUAL CHECKS. CALL LIGHT WITHIN REACH. FALL PRECAUTIONS IN PLACE
[2019-02-14 18:37] VITALS: BP 106/49
[2019-02-14 19:45] VITALS: BP 139/60
--- NOTE | 2019-02-14 22:46 | NUR ---
PT ASSESSMENT DONE AND VSS. MED GIVEN AND WELL TOLERATED. FALL PRECAUTIONS IN PLACE. SLEEPING WELL. WILL CONTINUE TO MONITOR.
[2019-02-15 05:06] LABS: HEMATOCRIT 33.5 % (37.0-47.0); HEMOGLOBIN 10.9 gm/dL (12.0-15.0); MCH 25.8 pg (26.0-34.0); MCHC 32.4 g/dL (28.0-37.0); MCV 79.7 fL (80.0-100.0); RBC 4.2 mil/uL (4.20-5.00); RDW 18.3 % (10.5-14.5)
[2019-02-15 05:16] LABS: CALCIUM 8.9 mg/dL (8.5-10.1); POTASSIUM 4.3 mmol/L (3.5-5.1)
[2019-02-15 07:40] VITALS: BP 125/59
--- NOTE | 2019-02-15 14:46 | NUR ---
ASSUMED CARES AT 0700. PT AWAKE, ALERT AND ORIENTED*4. C/O DISCOMFORT ON LEFT HAND, FINGERS SWOLLEN. PT STATED THAT SHE NOTICED THE EDEMA AFTER BLOOD DRAW THIS AM AT THE BACK OF THE HAND. EXTREMITY ELEVATED AND ICED, DECREASE IN EDEMA NOTED DAY PROGRESSED. PT WAS ABLE TO REMOVE HER [place] RINGS WHICH WERE STUCK AND WERE HANDED TO HER GRANDDAUGHTER T0 TAKE HOME. PT CONTINUES TO HAVE BUE BRUISING, IMPROVEMENT NOTED. HEELS ELEVATED. PT UP WITH 1 MIN ASSIST GB AND WALKER AND TOLERATED WELL. Q1H VISUAL CHECKS. CALL LIGHT WITHIN REACH. FALL PRECAUTIONS IN PLACE
[2019-02-15 19:30] VITALS: BP 148/74
--- NOTE | 2019-02-16 07:46 | NUR ---
PROGRESS PT A/O X 3 TO 4 REFUSES TO GET OOB TO [facility] FEMALE EXTERNAL CATH IN PLACE ON ARRIVAL, NOT DRAINING CORRECTLY REPOSITIONED AND CHANGED X 2 LAST EFFORT FINALLY WORKING. PT IRRITATED THAT BED GOT WET KONSTANTIN CARE AND LINEN CHANGE PROVIDED. DISCUSSED WITH PT NEED TO GET IN AND OUT OF BED TO [facility] IT IS A PART OF THERAPY. SHE RESPONDED THAT SHE WAS TOLD SHE COULD HAVE ON AT NIGHT. DENIES PAIN VSS CONTINUE POC.
[2019-02-16 08:00] VITALS: BP 135/69
--- NOTE | 2019-02-16 15:14 | NUR ---
ASSUMED CARE OF PT AT 0715. PT IS A&OX4. IS ON ROOM AIR. IS STABLE. REPORTS ARTHRICTIC PAIN IN RIGHT SHOULDER & HANDS. NURSING IS APPLYING VOLTAREN ORDERED. PT IS UP WITH 1 ASSIST, GB, WALKER MAX ASSIST TO BSC. FALL PRECAUTIONS & HOURLY ROUNDING MAINTAINED. LABS & VITALS REVIEWED. HAS Q2H TURNS WHEN IN BED. HEELS FLOATED. PT IS CURRENTLY IN ROOM UP IN RECLINER WATCHING FOOTBALL & BASKETBALL GAME. CALL LIGHT WITHIN REACH. ROOM ACROSS FROM NURSE STATION. CALL LIGHT WITHIN REACH. WILL CONTINUE TO MONITOR.
[2019-02-16 19:45] VITALS: BP 133/67
--- NOTE | 2019-02-17 01:57 | NUR ---
PATIENT ASSESSED AND IS ALERT X 4. SKIN WARM AND DRY. IS FORGETFUL DURING THE NOC, ALSMOST CONFUSED. SHE THOUGHT SHE WAS DRIVING HER CAR.HAS RIGHT SIDE WEAKNESS. LEANS ALOT OF RIGHT . HAS RIGHT SIDE HEMIPARESIS. HAS BRUISING TO ARMS AND LEFT HAND. REFUSED SCD'S. TAKES PILLS WHOLE IN APPLESAUSE WITH ALTERED MECH GROUND DIET. PLACED TO BED AND APPLIED AN EXTERNAL CATH. VOIDS SMALL AMOUNT IN CANNISTER, MARINA IN COLOR. NO SKIN SSUES. TURNS WITH HELP. VOLTARAN APPLIED TO RIGHT SHOULDER WITH GOOD RELIEF. ON ROOM AIR. UP WITH MAX ASSIST OF 2 AND GAIT BELT AND WALKER. REMAINS A FALL RISK. TYLENOL GIVEN FOR PAIN IN HER HAND AND LEGS. CONT PLAN OF CARE.
[2019-02-17 07:34] VITALS: BP 127/57
--- NOTE | 2019-02-17 10:24 | NUR ---
ASSUMED CARE AT 0700. STEPHANIETENT IS ALERT AND ORIENTED X3. PATIENT HAS WEAKNESS ON HER RIGHT SIDE. PATIENT C/O SOME LEFT SIDED WEAKNESS. LUNGS ARE CLEAR AND DEMINISHED. ABD IS SOFT WITH BSX4. LAST BM ON 02/13/19. CONTINUES ON ABT PO WITHOUT ADVERSE AFFECCTS. PATIENT USES EXTERNAL CATHETER AT [facility]. FALL AND SAFETY PROTOCOLS IN PLACE. C/O PAIN IN HER RIGHT SHOULDER, VOLTARIN GEL APPLIED. CONTINUES TO PROGRESS SLOWLY TOWARDS D/C GOALS. [facility] X[facility] HERE TO DO PORTALBLE XRAY. LAB HERE TO DRAW BLOOD ORDERED. WILL CONTINUE TO MONITER.
[2019-02-17 10:45] LABS: ABSOLUTE NEUTROPHILS 7.2 thou/uL (1.4-8.2); BASOPHILS 0.7 % (0.0-2.0); EOSINOPHILS 1.5 % (0.0-3.0); HEMATOCRIT 39.5 % (37.0-47.0); HEMOGLOBIN 12.5 gm/dL (12.0-15.0); LYMPHOCYTES 8.5 % (24.0-44.0); MCH 25.4 pg (26.0-34.0); MCHC 31.7 g/dL (28.0-37.0); MCV 80.2 fL (80.0-100.0); MONOCYTES 6.4 % (1.0-8.0); PLATELET COUNT 242 thou/uL (150-400); POLYS 82.9 % (36.0-66.0); RBC 4.92 mil/uL (4.20-5.00); RDW 18.4 % (10.5-14.5); WBC 8.7 thou/uL (4.0-11.0)
[2019-02-17 11:05] LABS: CALCIUM 9.5 mg/dL (8.5-10.1); CREATININE 1.1 mg/dL (0.6-1.0); MAGNESIUM 1.9 mg/dL (1.8-2.4); POTASSIUM 4.1 mmol/L (3.5-5.1); URIC ACID* 4.7 mg/dL (2.6-7.2)
--- NOTE | 2019-02-17 14:10 | NUR ---
Nutrition: pt admitted with CVA, right sided hemiparesis, acute metabolic encephalopathy to rehab unit. ST following for dysphagia and modified diet need. PO intake of meals has been documented as < 50%, although RD observed 90% consumed at lunch today. Was drinking Ensure BID but has not seen past [address] re-order at once daily only per pt request. Pt states her appetite is "as good as ever". Weights have been stable. Physician has documented malnutrition. RD will defer dx. Did observe severe orbital wasting. Low risk.
--- NOTE | 2019-02-17 18:17 | NUR ---
I have reviewed the documentation by CHRISTOPHER OLIVEROS from 02/17/19 to 02/17/19 and I concur with it. JESUS MARTIN
[2019-02-17 19:24] VITALS: BP 99/58
--- NOTE | 2019-02-18 02:19 | NUR ---
PT ALERT AND ORIENTED X 4. RIGHT SIDED WEAKNESS. FEMALE EXTERNAL CATHETER INTACT WITH CLEAR YELLOW URINE. PT TOOK HS MEDS IN APPLESAUCE WITHOUT DIFFICULTY. PT C/O PAIN IN RIGHT SHOULDER. VOLTAREN GEL APPLIED ORDERED. BED ALARM ON FOR SAFETY. PT APPEARS TO BE SLEEPING ON HOURLY ROUNDS.
--- NOTE | 2019-02-18 07:51 | NUR ---
ASSUMED CARE AT 0700. PATIENT IS ALERT AND ORIENTED X4, BUT FORGETFUL AT TIMES. PATIENT HAS RIGHT SIDED WEAKNESS. LUNGS ARE CLEAR AND DEMINISHED. ABD IS SOFT WITH BSX4. LEFT ARM BRUISED. UP FOR MEALS. FALL AND SAFETY PROTOCOLS IN PLACE. C/O PAIN IN RIGHT SHOULDER AND LEFT ARM. CONTINUES TO PROGESS SLOWLY TOWARDS D/C GOALS. WILL CONTINUE TO MONITER.
--- NOTE | 2019-02-18 11:11 | NUR ---
LATE ENTRY FIM CLARIFICATION/CORRECTION: PER NARRATIVE NOTES AND INTERVIEW WITH RN ON FIRST 3 DAYS, PT IS FIM 5 EATING, FIM 4 GROOMING, FIM 1 TOILETING, FIM 1 BLADDER LEVEL OF ASSIST WITH FEMALE EXTERNAL CATHETER MGMT AT NIGHT, FIM 1 BOWEL LEVEL OF ASSIST WITH NO ACCIDENTS NOTED. PER CLERICAL METHODS ANALYST EVALUATION NOTES, PT IS FIM 3 FOR AUDITORY COMPREHENSION, FIM 3 FOR VERBAL EXPRESSION, AND FIM 3 FOR SOCIAL INTERACTION, PROBLEM SOLVING, AND MEMORY. THESE HAVE BEEN UPDATED ON IRFPAI.
--- NOTE | 2019-02-18 12:55 | NUR ---
team meeting, recommendation: re team with cont therapy.
--- NOTE | 2019-02-18 17:39 | NUR ---
I have reviewed the documentation by CHRISTOPHER OLIVEROS from 02/18/19 to 02/18/19 and I concur with it. JESUS MARTIN
[2019-02-18 19:16] VITALS: BP 107/45
--- NOTE | 2019-02-19 03:59 | NUR ---
assumed care at approx 1900 evening 02/18. pt lying in bed with head of bed elevated at change of shift. pt alert and somewhat forgetful yet pleasant and cooperative. assisted pt with gown change at hs. female external catheter not in use and pt assisted up to bsc to void. pt appears to be sleeping soundly with hourly rounding checks. bed alarm on and call light in reach. will continue to monitor.
[2019-02-19 07:24] VITALS: BP 115/51
--- NOTE | 2019-02-19 13:31 | NUR ---
ASSUMED CARES AT 0700. PT AWAKE, ALERT AND ORIENTED*4. DENIES PAIN. VITALS REMAIN STABLE. PT C/O STOOL IMPACTION, REFUSED SUPPOSITORY, STOOL SOFTENORS AND LAXATIVES AT THIS TIME, STATED THAT SHE WANTS TO WAIT MORE BECAUSE LAST TIME SHE TOOK IT SHE HAD LOOSE STOOLS FOR DAYS, LAST BM 02/16. BS REMAIN ACTIVE IN ALL 4 QUADRANTS, HAS A SMALL HARD "BALL" OF STOOL THIS AM. CONTINUES TO HAVE BRUISING IN BUE ( IMPROVED). Q1H VISUAL CHECKS. CALL LIGHT WITHIN REACH. FALL PRECAUTIONS IN PLACE.
[2019-02-19 19:30] VITALS: BP 128/64
--- NOTE | 2019-02-20 01:29 | NUR ---
PT ALERT AND ORIENTED X 4. RIGHT SIDED WEAKNESS. PT TOOK HS MEDS IN APPLESAUCE WITHOUT DIFFICULTY. PT REFUSED MIRALAX AT HS. PT C/O PAIN IN RIGHT SHOULDER. VOLTAREN GEL APPLIED ORDERED. BED ALARM ON FOR SAFETY. PT APPEARS TO BE SLEEPING ON HOURLY ROUNDS.
[2019-02-20 10:14] VITALS: BP 107/55
--- NOTE | 2019-02-20 11:04 | PLAN ---
[facility] [place] [address] REHAB UNIT PLAN OF CARE Name: ROHAN RITCHIE Room #: 512-P ADM IN M.R.#: [id number] Admission: 02/14/19 Attend Phys: Kj Gottlieb MD Discharge: Date of : 31 Report #: [id number] THIS REPORT FOR: //name// CC: Kj Sainz DATE OF SERVICE: 02/17/2019 PROGRESS NOTE/OVERALL PLAN OF CARE SUBJECTIVE: The patient is seen back today in followup. She is in no distress. Last recorded temperature 97.9, pulse 79, respirations 16, blood pressure 133/67. The patient is alert. She is in no distress. No focal neuro changes. On exam, transfers have been mod assist with gait min assist 40 feet front-wheeled walker. In occupational therapy, lower body dressing is dependent. Speech therapy, the patient has moderate cognitive deficits. She is on a mechanical soft, thin liquid diet. ASSESSMENT: 1. Cerebrovascular accident with right-sided hemiparesis. 2. Metabolic encephalopathy. 3. Urinary tract infection with sepsis. 4. Possible seizure disorder, now on an antiepileptic. 5. History of multiple cerebrovascular accidents. 6. Hypertension. 7. Scoliosis. PLAN: The overall plan of care is based on the preadmission screen, post-admission physician evaluation and information garnered from therapy assessments. 1. Estimated length of stay is probably 7-14 days. 2. Medical prognosis is reasonably good. 3. Anticipated interventions includes the interdisciplinary acute inpatient rehabilitation program. 4. Anticipated functional outcomes would be for the patient to achieve a functional level similar to her prior situation when she was living at the assisted living facility. She had been independent with all of her ADLs, so this would be the goal for her at this time. This would be at a walker level. 5. Discharge destination would be back to her assisted living facility. 6. Expected therapy by discipline includes PT, OT and speech 1 hour per day each five days a week throughout the duration of the acute inpatient rehabilitation stay. <ELECTRONICALLY SIGNED> By: Kj Gottlieb MD 02/20/19 1104 [id number] Kj Gottlieb MD /[facility]
--- NOTE | 2019-02-20 11:04 | H ---
[facility] [place] [address] HISTORY AND PHYSICAL Name: ROHAN RITCHIE Room #: 512-P ADM IN M.R.#: [id number] Admission: 02/14/19 Attend Phys: Kj Gottlieb MD Discharge: Date of : 33 Report #: [id number] THIS REPORT FOR: //name// CC: jK Sainz DATE OF SERVICE: 02/14/2019 POST-ADMISSION PHYSICIAN EVALUATION HISTORY OF PRESENT ILLNESS: Please see the full admission history and physical. I agree with the examination, assessment, and plan as noted. The patient was treated for increased right-sided weakness, she received TPA. MRI did not show any acute process. She has been followed closely by Neurology. She does have increased functional deficits from her premorbid status with some right-sided weakness as noted and she has now been admitted for acute in-hospital inpatient rehabilitation. From a functional perspective, transfers are mod assist and she is ambulating min assist 40 feet with a front-wheeled walker. In occupational therapy, lower body dressing has been dependent. She is on a mechanical soft with all liquids. Volitionally, right upper extremity strength is probably a grade 3/5, right lower extremity strength is 3+ to 4-/5. She appears to have functional range of motion and strength of the left upper and left lower extremity. DTRs are trace to 1 bilaterally upper and lower extremities. Again, please see the full examination as noted in the history and physical. ASSESSMENT: 1. Cerebrovascular accident with right-sided hemiparesis. 2. Acute metabolic encephalopathy. 3. Urinary tract infection with sepsis. 4. Probable seizure disorder is now on an antiepileptic. 5. History of multiple cerebrovascular accidents previously. 6. Hypertension. 7. Scoliosis. 8. Hyperlipidemia. 9. Degenerative joint disease. 10. Right ingrown toenail. PLAN: The patient is admitted for acute in-hospital inpatient rehabilitation. From a postadmission physician evaluation perspective, there are no relevant changes since the preadmission screening. Please see the above review of prior and current medical and functional conditions and comorbidities. Please see the previous and current functional status. As far as risk of complications, the patient has multiple medical comorbidities as noted above. The initial plan of care involves the interdisciplinary acute inpatient rehabilitation program with goal of maximizing her functional independence, so that she can hopefully return back to her prior living situation. Prognosis is reasonably good with estimated [facility] [address] [place] [address] HISTORY AND PHYSICAL Name: ROHAN RITCHIE Room #: 512-P ADM IN M.R.#: [id number] Admission: 02/14/19 Attend Phys: Kj Gottlieb MD Discharge: Date of : 33 Report #: [id number] length of stay probably at least the next 7-14 days. Potential barriers would include her multiple medical comorbidities and decreased functional status. The patient meets diagnostic criteria for an acute in-hospital inpatient rehabilitation stay. She meets medical necessity criteria. We will have the recruiting operations consultant physicians continue to follow. She does have the tolerance for therapies and has appropriate discharge goals back to the home setting. <ELECTRONICALLY SIGNED> By: Kj Gottlieb MD 02/20/19 1104 [id number] Kj Gottlieb MD /nt
--- NOTE | 2019-02-20 15:43 | NUR ---
I have reviewed the documentation by ELPIDIO CLOUD from 02/20/19 to 02/20/19 and I concur with it. SUSAN RUFF, PT, DPT
[2019-02-20 19:43] VITALS: BP 107/52
--- NOTE | 2019-02-20 20:41 | NUR ---
PATIENT ALERT AND ORIENTED AND PARTICIPATES IN POC. FAMILY AT BEDSIDE THIS AFTERNOON. ARLENE, FROM CARE FACILITY, CALLED REQUESTING UPDATE ON PATIENT PROGRESS AND ANTICIPATED DISCHARGE DATE.
--- NOTE | 2019-02-20 23:34 | NUR ---
PT ASSESSMENT DONE AND VSS. MEDS GIVEN AND WELL TOLERATED. FALL PRECAUTIONS IN PLACE. SLEEPING. WILL CONTINUE TO MONITOR.
[2019-02-21 06:02] LABS: HEMATOCRIT 34.4 % (37.0-47.0); MCH 25.7 pg (26.0-34.0); MCV 80.2 fL (80.0-100.0); RBC 4.29 mil/uL (4.20-5.00); RDW 17.6 % (10.5-14.5); WBC 10.8 thou/uL (4.0-11.0)
[2019-02-21 06:11] LABS: CALCIUM 9.4 mg/dL (8.5-10.1); POTASSIUM 4.7 mmol/L (3.5-5.1)
[2019-02-21 09:46] VITALS: BP 121/46
--- NOTE | 2019-02-21 13:13 | NUR ---
ASSUMED CARES AT 0700. PT AWAKE, ALERT AND ORIENTED*4 BUT FORGETFUL. C/O RIGHT SHOULDER AND LEFT ELBOW PAIN, VOLTAREN GEL APPLIED NEEDED. VITALS REMAIN STABLE. CONTINUES TO HAVE BRUISING ON BUE, SKIN TEAR ON RIGHT FOREARM HEALING, DRESSING CHANGED. CONTINUES TO HAVE MILD BLE EDEMA, EXTREMITIES ELEVATED. PT UP WITH 1 MIN ASSIST, GB AND WALKER AND TOLERATED WELL. Q1H VISUAL CHECKS. CALL LIGHT WITHIN REACH. FALL PRECAUTIONS IN PLACE
--- NOTE | 2019-02-21 16:35 | NUR ---
I have reviewed the documentation by ELPIDIO CLOUD from 02/21/19 to 02/21/19 and I concur with it. SUSAN RUFF, PT, DPT
[2019-02-21 20:20] VITALS: BP 121/54
--- NOTE | 2019-02-22 03:03 | NUR ---
assumed care at approx 1900 evening 02/21. pt lying in bed with head of bed elevated at change of shift. pt alert and oriented x4, appropriate and cooperative. pt up to bathroom with 1 with walker tolerating well. pt appears to be sleeping soundly with hourly rounding checks. bed alarm on and call light in reach. will continue to monitor.
[2019-02-22 09:54] VITALS: BP 124/92
--- NOTE | 2019-02-22 13:00 | NUR ---
ASSUMED CARES AT 0700. PT AWAKE, ALERT AND ORIENTED*4. DENIES PAIN. VITALS REMAINED STABLE. CONTINUES TO HAVE BRUISING ON BUE, SKIN TEAR ON RIGHT ARM HEALING. CONTINUES TO HAVE BLE EDEMA, EXTREMITIES ELEVATED. UP WITH 1 MIN ASSIST, GB AND WALKER AND TOLERATED WELL. Q1H VISUAL CHECKS. CALL LIGHT WITHIN REACH. FALL PRECAUTIONS IN PLACE
[2019-02-22 19:24] VITALS: BP 107/61
--- NOTE | 2019-02-22 22:02 | NUR ---
PT SITTING IN CHAIR WATCHING TV UPON ARRIVAL TO SHIFT. PT REQUESTED HS MEDS AND TO GO TO BED. PT ABLE TO CLEARLY STATE HER HS ROUTINE WITH ADL CARES AND BSC. PT AMBULATED WITH GAIT BELT AND WALKER TO BED. STEADY GAIT, BUT WEAK AND SLOW FROM SIT TO STAND POSITION. PT REPORTED R ANKLE +[address] AWARE. [facility] CONTACT WITH CONVERSATION, BLUNTED AFFECT. PT NOTED TO BE WEAK WHEN USING R HAND, R LEG AND L LEG GAIT STEADY. PT REFUSED HER STOOL MEDICATIONS.
[2019-02-23 08:00] VITALS: BP 102/59
--- NOTE | 2019-02-23 13:08 | NUR ---
ASSUMED CARE OF PT AT 0700. PT IS A&OX4. IS ON ROOM AIR. DENIES PAIN AT THIS TIME. HAS BRUISING IN BILAT UPPER EXTREMITIES. IS STABLE. IS UP WITH 1 ASSIST, GB, WALKER TO BSD COMMODE. REQUIRES EXTRA TIME TO TRANSFER. FALL PRECAUTIONS & HOURLY ROUNDING MAINTAINED. LABS & VITALS REVIEWED. PT IS CONT TO B&B. LABS & VITALS REVIEWED. PT IS CURRENTLY SITTING UP IN CHAIR WATCHING TV. CALL LIGHT WITHIN REACH. WILL CONTINUE TO MONITOR.
--- NOTE | 2019-02-23 16:57 | HC ---
[facility] [place] [address] CONSULTATION Name: ROHAN RITCHIE Room #: 512-P ADM IN M.R.#: [id number] Admission: 02/14/19 Attend Phys: Kj Gottlieb MD Discharge: Date of : 33 Report #: [id number] THIS REPORT FOR: //name// CC: Kj Sainz DATE OF SERVICE: 02/22/2019 NEUROBEHAVIORAL STATUS EXAM ATTENDING PHYSICIAN: Kj Gottlieb MD FACIALIST: Kailash Galvez, PhD CLINICAL PRESENTATION: The patient is an 83-year-old female admitted to the rehabilitation unit for comprehensive inpatient rehabilitation program. The patient was initially admitted to the hospital through the Emergency Department with probable cerebrovascular accident. She was given TPA and had an improvement in functioning. An MRI of the head did not show acute process, but did reveal encephalomalacia and an old right frontal infarct and lacunar bilateral hemisphere infarctions. PAST MEDICAL HISTORY: Includes a pneumothorax, right partial mastectomy, hypertension, left ankle fracture, history of scoliosis, osteoporosis, multiple CVAs with a previous right-sided weakness. Her assessment on the rehabilitation unit included cerebrovascular accident with right-sided hemiparesis, acute metabolic encephalopath urinary tract infection with sepsis, possible seizure disorder, history of multiple cerebrovascular accidents, right ingrown toenail, hypertension, scoliosis, hyperlipidemia and degenerative joint disease. A complete description of her medical condition and history can be found in her medical record. Neuropsychological consultation was requested to provide assistance in the assessment of cognitive and emotional status and to provide recommendations and services. Prior to this most recent medical event, she was living at the [facility] in an assisted living apartment. She has 2 children. 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 She is a high school graduate. TECHNIQUES UTILIZED: Clinical interview, review of medical records, staff consultation and behavioral observation, mini mental status exam 2 standard version, and verbal fluency assessment. EXAMINATION FINDINGS: The patient was alert and cooperative with the [facility] [address] [facility] [place] [address] CONSULTATION Name: ROHAN RITCHIE Room #: 512-P [facility] IN M.R.#: [id number] Admission: 02/14/19 Attend Phys: Kj Gottlieb MD Discharge: Date of : 33 Report #: [id number] assessment. She accurately described events surrounding her admission. There was no loss of consciousness. She described her symptoms to include difficulty with walking, left arm is swollen, memory, and anxiety. She does not report difficulty with sleep, subjective anxiety or depression. Her performance on the MMSE 2 brief version was in the borderline range with a raw score of 12, T score 31 and percentile rank of 3. She was 3/3 for initial registration, 5/5 for orientation to time, 3/[address] and 1/3 for immediate recall of 3 items after a brief time delay and distraction. Performance on the MMSE 2 standard version was in the borderline range with a raw score of 21, T score of 29 and percentile rank at 2. She was 1/5 for serial sevens, 2/2 for naming, 1/1 for repetition, 3/3 for comprehension, 1/1 for being able to read and follow single command and write a sentence. The patient was unable to accurately copy a simple geometric design. Visual spatial deficits are noted. Her performance in letter fluency was extremely low with a raw score 7, T score of 23 and percentile rank of less than 1. Category fluency was in the borderline range with a raw score of 22, T score 33 and percentile rank of 4. Overall, total fluency was extremely low with a raw score of 29, T score 24, percentile rank of less than 1. Brief abstract reasoning test was impaired with raw score of 4/8. The patient is presenting with deficits in immediate memory, sustained concentration, visual spatial construction, verbal fluency and executive functioning. DIAGNOSTIC IMPRESSION: Major neurocognitive disorder (dementia), possibly due to vascular disease, without behavior disorder -- likely in the moderate range. RECOMMENDATIONS: The patient will continue to require an assisted living environment in which medications, nutrition and finances are managed. Continued deficits are likely to impair higher level planning and problem solving. Cognitive rehabilitation with a focus on memory, concentration and executive functioning. Severe deficits in visual spatial construction will require environmental modifications to maintain safety. Thank you very much for allowing me to provide the consultation on this patient. <ELECTRONICALLY SIGNED> By: Kailash Galvez, PhD 02/23/19 1657 [id number] Kailash Galvez, PhD /nt
[2019-02-23 19:14] VITALS: BP 106/63
--- NOTE | 2019-02-24 02:45 | NUR ---
assumed care at approx 1900 evening 02/23. pt sitting up in recliner at change of shift. pt assisted into gown at hs and appears to be sleeping soundly with hourly rounding checks. bed alarm on and call light in reach. will continue to monitor.
[2019-02-24 08:30] VITALS: BP 108/51
--- NOTE | 2019-02-24 08:40 | NUR ---
ASSUMED CARE OF PT AT 0700. REPORTS SLEPT FAIR LAST NIGT. PT IS A&OX4. VSS ON RA. DENIES PAIN AT THIS TIME. HAS BRUISING IN BILAT UPPER EXTREMITIES. UP WITH 1 ASSIST, GB, WALKER TO BSD COMMODE. REQUIRES EXTRA TIME TO TRANSFER. UP TO RECLINER FOR BREAKFAST NOW. BOTTOM INTACT, NO REDNESS. HAS OLD RIGHT FA SKIN TEAR, COVER WITH OPTIFOAM, NO NEED TO CHANGE. HAS BRUISES ON BOTH UPPER EXTREMETIES. OFFERED SUPPORTIVE CARE. ENCOURAGED PT TO VOICE HER NEEDS. B/P 1008/51, HELD METOPROLOL PARAMETER. PT REFUSES TO TAKE MIRALAX ONLY TAKE SENOKOT. WILL ASK JENNIFER TO CHANGE TO PRN. REASSESSMENT PER CHART. LAST BM WAS YESTERDAY. DISCUSSED WITH PT CARE PLAN TODAY AND ENCORUAGED PT TO PARTICIPATE WITH THERAPY. FALL PRECAUTIONS & HOURLY ROUNDING MAINTAINED. LABS & VITALS REVIEWED. PT IS CONT TO B&B. LABS & VITALS REVIEWED. CALL LIGHT WITHIN REACH. WILL CONTINUE TO MONITOR.
--- NOTE | 2019-02-24 13:30 | NUR ---
Nutrition followup: Pt continues to eat 50-100% of meals and drinks 100% ensure supplements BID. States good appetite but sometimes eats a late breakfast and is not as hungry for lunch. Last weight taken on 02/17. Prior with stable weights. Continues on mechcanically altered ground diet but now discharged from swallow therapy. Low nutrition risk.
[2019-02-24 20:50] VITALS: BP 127/58
--- NOTE | 2019-02-25 00:16 | NUR ---
PT ASSESSMENT AND VSS. MED GIVEN ORDERED AND WELL TOLERATED. FALL PRECAUTIONS IN PLACE. SLEEPING WELL. WILL CONTINUE TO MONITOR.
[2019-02-25 08:00] VITALS: BP 116/69
--- NOTE | 2019-02-25 13:01 | NUR ---
ASSUMED CARE OF PT AT 0700. REPORTS SLEPT FAIR LAST NIGT. PT LIKES TO SIT ON LEAD PRESSMAN WHEN SHE IS NOT IN THERAPY. WC CUSHION PLACED ON RECLINER TO PREVENT BROKE DOWN. PT UP TO BATHROOM. BUTTOCK IS BETTER, LESS RED NOW. CONTINUE TO APPLY BARRIER CREAM NEED. PT IS A&OX4. VSS ON RA. DENIES PAIN AT THIS TIME. VOLATERENE GEL APPLIED TO SHOULERS ORDERED. HAS BRUISING IN BILAT UPPER EXTREMITIES. UP WITH 1 ASSIST, GB, WALKER TO BSD COMMODE WHEN FEELS WEAK OR TOILET PER REQUESTS. REQUIRES EXTRA TIME TO TRANSFER. ENCOURAGED PT TO GO TO DINNING ROOM FOR MEALS. PT UP TO DINNING ROOM FOR LUCH. HAS BRUISES ON BOTH UPPER EXTREMETIES. OFFERED SUPPORTIVE CARE. ENCOURAGED PT TO VOICE HER REASSESSMENT PER CHART. HAD BM THIS AM. DISCUSSED WITH PT CARE PLAN TODAY AND ENCORUAGED PT TO PARTICIPATE WITH THERAPY. FALL PRECAUTIONS & HOURLY ROUNDING MAINTAINED. CALL LIGHT WITHIN REACH. WILL CONTINUE TO MONITOR.
--- NOTE | 2019-02-25 13:33 | NUR ---
team meeting, recommendation: aureliano 03/04/19 hh with gini (pt, ot), [facility]. see if pt has fww rt 4ww is not recommended at this time rt safety.
--- NOTE | 2019-02-25 16:05 | NUR ---
I have reviewed the documentation by ELPIDIO CLOUD from 02/25/19 to 02/25/19 and I concur with it. SUSAN RUFF, PT, DPT
[2019-02-25 19:30] VITALS: BP 111/58
--- NOTE | 2019-02-25 21:52 | NUR ---
PT ASSESSMENT DONE AND VSS. MED GIVEN ORDERED AND WELL TOLERATED. UP TO BATHROOM TO USE TOLIET WITH WALKER/GAIT BELT/ASSIST OF ONE STAFF. FALL PRECAUTIONS IN PLACE. SLEEPING WELL. WILL CONTINUE TO MONITOR.
[2019-02-26 07:45] VITALS: BP 119/57
--- NOTE | 2019-02-26 13:41 | NUR ---
ASSUMED CARES AT 0700. PT AWAKE, ALERT AND ORIENTED*4 BUT FORGETFUL. DENIES PAIN. VITALS REMAIN STABLE. BRUISING ON ARMS IMPROVED REMARKABLY. SKIN TEAR ON RUE HEALING, DRESSING DC'D. BARRIER CREAM APPLIED TO SACRAL AREA AFTER PERICARE. PT UP WITH 1 MIN ASSIST, GB AND WALKER AND TOLERATED WELL. Q1H VISUAL CHECKS. CALL LIGHT WITHIN REACH. FALL PRECAUTIONS IN PLACE
--- NOTE | 2019-02-26 15:45 | NUR ---
I have reviewed the documentation by ELPIDIO CLOUD from 02/26/19 to 02/26/19 and I concur with it. SUSAN RUFF, PT, DPT
[2019-02-26 20:15] VITALS: BP 149/81
--- NOTE | 2019-02-27 04:17 | NUR ---
ASSUMED CARE OF PT AT 1900HES. PT IS AOX4 WITH SOME FORGETFULNESS. FALL PRECAUTION IN PLACE. PT USES CALL LIGHT APPROPRIATELY. PT WAS ABLE TO GET COMFORTABLE AND SLEEP PART OF THE SHIFT. VSS AND NO S/S OF ACUTE DISTRESS. WILL CONTINUE TO MONITOR.
[2019-02-27 10:00] VITALS: BP 96/55
--- NOTE | 2019-02-27 10:21 | NUR ---
ASSUMED CARE OF PT AT 0700. UP TO RECLINER FOR BREAKFAST. ATE WELL. PT IS A&OX4. VSS ON RA. DENIES PAIN AT THIS TIME. VOLATERENE GEL APPLIED TO SHOULERS ORDERED. HAS BRUISING IN BILAT UPPER EXTREMITIES. UP WITH 1 ASSIST, GB, WALKER REQUIRES EXTRA TIME TO TRANSFER. HAS BRUISES ON BOTH UPPER EXTREMETIES. OFFERED SUPPORTIVE CARE. ENCOURAGED PT TO VOICE HER REASSESSMENT PER CHART. HAD LOOSE BM WAS 2 DAYS AGO. REFUSES SENOKOT THIS AM. SHE WILL TAKE TONIGHT. DISCUSSED WITH PT CARE PLAN TODAY AND ENCOURAGAGED PT TO PARTICIPATE WITH THERAPY AND ENCOURAGED PT TO GO TO DINNING ROOM FOR MEALS AND BATHROOM FOR TOILETING. PT OK WITH THAT. FALL PRECAUTIONS & HOURLY ROUNDING MAINTAINED. CALL LIGHT WITHIN REACH. WILL CONTINUE TO MONITOR.
--- NOTE | 2019-02-27 15:52 | NUR ---
I have reviewed the documentation by ELPIDIO CLOUD from 02/27/19 to 02/27/19 and I concur with it. SUSAN RUFF, PT, DPT
[2019-02-27 19:29] VITALS: BP 109/56
--- NOTE | 2019-02-27 23:42 | NUR ---
PT ASSESSMENT COMPLETED AND VSS. MEDS GIVEN ORDERED AND WELL TOLERATED. FALL PRECAUTIONS IN PLACE. UP TO THE BATHROOM WITH ASST/GAIT/WALKER. ASST WITH REPOSITION FOR COMFORT. SLEEPING WELL. WILL CONTINUE TO MONITOR FREQUENTLY.
[2019-02-28 10:01] VITALS: BP 111/61
--- NOTE | 2019-02-28 12:44 | H ---
[facility] [place] [address] HISTORY AND PHYSICAL Name: ROHAN RITCHIE Room #: 512-P ADM IN M.R.#: [id number] Admission: 02/14/19 Attend Phys: Kj Gottlieb MD Discharge: Date of : 33 Report #: [id number] THIS REPORT FOR: //name// CC: Kj Sainz DATE OF SERVICE: 02/14/2019 HISTORY OF PRESENT ILLNESS: This is an 83-year-old female who presented to the hospital with increased right-sided weakness, especially in the right foot and difficulty ambulating along with right facial droop. She was given TPA in the Emergency Department for a probable CVA. The patient has improved status post TPA. However, MRI of the head did not show any acute process. It did show encephalomalacia and old right frontal infarct and old lacunar bilateral hemisphere infarcts. The patient was also found to have a Gram-negative yarelis UTI. She is on antibiotics. She was noted to have sepsis from her bladder infection. She has been followed closely by Neurology. Cardiology is also on the case for a questionable arrhythmia that Cardiology felt was artifact and all further EKGs have revealed a sinus rhythm. Due to the patient's worsening debility, she will be admitted to inpatient rehab. Today, the patient reports feeling tired. She otherwise denies headache or dizziness. She has no vision changes. She does have some chronic back pain that is not new. She denies any cough or shortness of breath. She is off her oxygen that she was wearing yesterday. She denies any dysuria. She does have urinary incontinence and wears a brief at home. She is using the female external catheter here in the hospital. She had a bowel movement yesterday. She has no nausea today. Appetite is slowly returning. She denies abdominal pain. She does have right great toe and left great toe pain. She has seen a reinforcing steel worker wire mesh and has a history of ingrown toenails. PAST MEDICAL HISTORY: Pneumothorax, right partial mastectomy, hypertension, left ankle fracture, history of scoliosis, osteoporosis, multiple CVAs with previous right-sided weakness, especially in the upper extremity. HABITS: She is a nonsmoker, nondrinker. CODE STATUS: Full code. SOCIAL HISTORY: The patient lives in assisted living. She utilized a four-wheel walker and was able to ambulate to and from the dining room. She was independent with her ADLs and the IADLs are all provided. Her daughter is closely involved in her care. ALLERGIES: TORADOL, KEFLEX, DOLOBID, ERYTHROMYCIN BASE, OXYBUTYNIN, AND PENICILLINS. [address] [address] HISTORY AND PHYSICAL Name: ROHAN RITCHIE Room #: 512-P [facility] IN M.R.#: [id number] Admission: 02/14/19 Attend Phys: Kj Gottlieb MD Discharge: Date of : 33 Report #: [id number] CURRENT MEDICATIONS: Mag oxide p.r.n., bisacodyl p.r.n., Colace p.r.n., metoprolol 25 mg daily, Plavix 75 mg daily, Lamictal 25 mg daily, Levaquin 500 mg daily, atorvastatin 20 mg at bedtime, tramadol p.r.n., Ambien p.r.n. nitro p.r.n., MiraLax p.r.n., Zofran p.r.n., Tylenol p.r.n. REVIEW OF SYSTEMS: Remainder of her 14-point review of systems is negative except as listed in HPI. PHYSICAL EXAMINATION: VITAL SIGNS: Blood pressure 119/50, pulse is 64, respirations 20, temperature of 98.1. She is 94% O2 sat on room air. GENERAL: She is awake, alert. She is oriented x 3 to basic questions. She is a poor historian. Her daughter is correcting the patient's statements in the room while we visit. HEAD: Head is normocephalic. EYES: EOMs are intact. No icterus. ENT: No sinus tenderness or pharyngitis. NECK: No lymphadenopathy. CARDIAC: She has a regular rate and rhythm with S1, S2 intact. CHEST: Lungs are clear to auscultation with no crackle, no wheeze. ABDOMEN: Bowel sounds are positive. Soft, nontender. GENITOURINARY: She is wearing a female external catheter at this time with clear yellow urine output noted. She has no CVA tenderness. EXTREMITIES: Right upper extremity hemiparesis, decreased range of motion with poor blower mechanic. Right upper extremity strength is probably 3/5. Right lower extremity, able to lift antigravity, strength is probably 3+ to 4-/5. She has a slightly boggy heel on the right and probable ingrown right great toenail with some mild erythema. She has trace ankle edema. Left upper extremity functional range of motion and use adequate blower mechanic. She has no wrist clonus bilaterally. Left lower extremity, able to lift antigravity in functional range of motion. Toileting is mod assist. Bed mobility is mod assist. Lower extremity dressing and bathing is mod assist, sit to stand with mod assist, max assist to take 6 feet with a front-wheel walker. NEUROLOGIC: As noted above and mild right facial droop. No slurred speech. LABORATORY DATA: Urine culture growing gram-negative rods. ASSESSMENT: 1. Cerebrovascular accident with right-sided hemiparesis. 2. Acute encephalopathy, metabolic. 3. Urinary tract infection with sepsis. 4. Possible seizure disorder, now on antiepileptic. 5. History of multiple cerebrovascular accidents. 6. Right ingrown toenail. 7. Hypertension. 8. Scoliosis. [facility] [address] [place] [address] HISTORY AND PHYSICAL Name: ROHAN RITCHIE Room #: 512-P [facility] IN LauraKarl.#: [id number] Admission: 02/14/19 Attend Phys: Kj Gottlieb MD Discharge: Date of : 33 Report #: [id number] 9. Hyperlipidemia. 10. Degenerative joint disease. PLAN: The patient has been admitted to inpatient rehab for physical, occupational, and speech therapies. She will have Neurology, hospitalist, and Geriatrics continue to follow the patient on the rehab floor. Social work services consulted for discharge planning. She will have a team conference next Sunday. If the right ingrown nail continues to be a problem, we may involve Podiatry. We will monitor it for now and she can do Epsom salt soaks. I did discuss the plan of care with the patient and daughter. Please see extensive orders. <ELECTRONICALLY SIGNED> By: YESENIA Echeverria 02/28/19 1244 [id number] Ita Meyer, YESENIA /nt
[2019-02-28 15:09] LABS: HEMATOCRIT 37.4 % (37.0-47.0); HEMOGLOBIN 12.1 gm/dL (12.0-15.0); MCH 25.7 pg (26.0-34.0); MCHC 32.5 g/dL (28.0-37.0); MCV 79.3 fL (80.0-100.0); RBC 4.72 mil/uL (4.20-5.00); RDW 17.7 % (10.5-14.5); WBC 4.9 thou/uL (4.0-11.0)
--- NOTE | 2019-02-28 15:17 | NUR ---
ASSUMED CARES AT 0700. PT AWAKE, ALERT AND ORIENTED*4 BUT FORGETFUL. DENIES PAIN. VITALS REMAIN STABLE. SKIN REMAINS INTACT. CONTINUES TO HAVE BLE EDEMA, EXTREMITIES ELEVATED. FINGERS CYANOTIC AND COOL TO THE TOUCH, HOSPITALIST NOTIFIED AND ORDERS RECEIVED. PT UP WITH 1 MIN ASSIST, GB AND WALKER, TAKES SMALL SLOW STEPS AND TOLERATES WELL. CONTINUES TO HAVE RIGHT SIDED WEAKNESS. Q1H VISUAL CHECKS. CALL LIGHT WITHIN REACH. FALL PRECAUTIONS IN PLACE
[2019-02-28 20:58] VITALS: BP 124/90
[2019-03-01 07:59] VITALS: BP 112/60
--- NOTE | 2019-03-01 14:26 | NUR ---
ASSUMED CARES AT 0700. PT AWAKE, ALERT AND ORIENTED*4. DENIES PAIN. VITALS REMAIN STABLE. CONTINUES TO HAVE CYANOTIC FINGERS WHEN COLD, WHICH RESOLVES SOON HER HANDS ARE WARMED (PT HAS GLOVES WHICH SHE HAS BEEN USING TO WARM UP HER HANDS). SATS REMAIN >92% ON RA, NO SOB NOTED. UP WITH CONTACT GUARD ASSIST, GB AND WALKER AND TOLERATED WELL. PARTICIPATED IN ALL THERAPIES AND CONTINUES TO PROGRESS TOWARDS DC GOALS. Q1H VISUAL CHECKS. CALL LIGHT WITHIN REACH. FALL PRECAUTIONS IN PLACE
[2019-03-01 19:30] VITALS: BP 132/66
--- NOTE | 2019-03-02 | NUR ---
PT ASSESSMENT DONE AND VSS. MED GIVEN AND WELL TOLERATED. FALL PRECAUTIONS IN PLACE. SLEEPING WELL. WILL CONTINUE TO MONITOR.
[2019-03-02 08:01] VITALS: BP 132/64
[2019-03-02 19:30] VITALS: BP 112/58
--- NOTE | 2019-03-03 00:34 | NUR ---
PT ALERT AND ORIENTED X 4. AMB TO BR WITH WALKER AND ASSIST X 1 WITHOUT DIFFICULTY. RIGHT SIDED WEAKNESS. PT TOOK HS MEDS IN APPLESAUCE WITHOUT DIFFICULTY. PT DENIES PAIN OR DISCOMFORT. BED ALARM ON FOR SAFETY. PT APPEARS TO BE SLEEPING ON HOURLY ROUNDS.
[2019-03-03 08:19] VITALS: BP 124/50
--- NOTE | 2019-03-03 08:40 | NUR ---
ASSUMED CARE OF PT AT 0700. REPORTS SLEPT GOOD. PT IS A&OX4. VSS ON RA. DENIES PAIN AT THIS TIME. VOLATERENE GEL APPLIED TO SHOULERS ORDERED. HAS BRUISING IN BILAT UPPER EXTREMITIES. UP WITH 1 ASSIST, GB, WALKER REQUIRES EXTRA TIME TO TRANSFER. HAS BRUISES ON BOTH UPPER EXTREMETIES. OFFERED SUPPORTIVE CARE. ENCOURAGED PT TO VOICE HER REASSESSMENT PER CHART. LAST BM WAS YESTERDAY. GIVE SENOKOT ORDERED. DISCUSSED WITH PT CARE PLAN TODAY AND ENCOURAGAGED PT TO PARTICIPATE WITH THERAPY AND ENCOURAGED PT TO GO TO DINNING ROOM FOR MEALS AND BATHROOM FOR TOILETING. FALL PRECAUTIONS & HOURLY ROUNDING MAINTAINED. CALL LIGHT WITHIN REACH. WILL CONTINUE TO MONITOR.
--- NOTE | 2019-03-03 12:22 | NUR ---
hansel requested a chart copy to be made for patient who will dc tomorrow, Sunday 03/04. 3W assistant secretary Myriam is making chart copy. Hansel also updated Dhara Orozco that patient will discharge tomorrow.
[2019-03-03 19:30] VITALS: BP 118/53
--- NOTE | 2019-03-04 01:26 | NUR ---
PT ALERT AND ORIENTED X 4. AMB TO BR WITH WALKER AND ASSIST X 1 WITHOUT DIFFICULTY. PT TOOK HS MEDS IN APPLESAUCE WITHOUT DIFFICULTY. PT DENIES PAIN OR DISCOMFORT. BED ALARM ON FOR SAFETY. PT APPEARS TO BE SLEEPING ON HOURLY ROUNDS.
[2019-03-04 08:26] VITALS: BP 105/53
[2019-03-04 10:01] VITALS: BP 105/53
[2019-03-04] MEDS ORDERED: PROTONIX 20 MG20 M1 PO (12:09)
--- NOTE | 2019-03-04 12:14 | NUR ---
ASSUMED CARES AT 0700. REPORTS SLEPT GOOD.PT AWAKE, ALERT AND ORIENTEDX4. ABLE TO VOICE HER NEEDS. DENIES PAIN. VITALS REMAIN STABLE. UP WITH CONTACT GUARD ASSIST, GB AND WALKER AND TOLERATED WELL. UP TO DINNING ROOM FOR MEALS AND READY TO DISCHARGE TODAY. DR. WESLEY IS HERE TO WORKING ON DISCHARGE MEDS. Q1H VISUAL CHECKS. CALL LIGHT WITHIN REACH. FALL PRECAUTIONS IN PLACE. WILL CONTINUE TO MONITOR.
--- NOTE | 2019-03-04 12:42 | NUR ---
Patient dc today back to [facility], with Home health from [facility]. DP faxed orders and will call to let them all know of dc and orders faxed.
--- NOTE | 2019-03-04 12:59 | NUR ---
team meeting, recommendation: cont with dc today back to [place] with hh
== END 2019-03-04 15:59 | disposition home health service (06) | DRG 56 ==
LOC: ENTRNSPT 03-04 15:43 → EDTRNSPTSTS 03-04 15:48
PROVIDERS: Hospitalist; Nurse Practitioner; Nurse Practitioner Family; ADMIT Physical Medicine & Rehabilitation
DX: I69.351 Hemiplegia and hemiparesis following cerebral infarction affecting right dominant side (principal); I63.9 Cerebral infarction, unspecified; G93.41 Metabolic encephalopathy; A41.9 Sepsis, unspecified organism; N39.0 Urinary tract infection, site not specified; E46 Unspecified protein-calorie malnutrition; I48.20 Chronic atrial fibrillation, unspecified; I10 Essential (primary) hypertension; M41.9 Scoliosis, unspecified; M81.0 Age-related osteoporosis without current pathological fracture; E78.5 Hyperlipidemia, unspecified; M19.90 Unspecified osteoarthritis, unspecified site; F01.50 Vascular dementia, unspecified severity, without behavioral disturbance, psychotic disturbance, mood disturbance, and anxiety; L60.0 Ingrowing nail; R26.9 Unspecified abnormalities of gait and mobility; R53.81 Other malaise; K59.00 Constipation, unspecified; Z66 Do not resuscitate; Z90.11 Acquired absence of right breast and nipple; Z88.0 Allergy status to penicillin; Z88.1 Allergy status to other antibiotic agents; Z88.8 Allergy status to other drugs, medicaments and biological substances; Z68.25 Body mass index [BMI] 25.0-25.9, adult; Z79.01 Long term (current) use of anticoagulants; R29.810 Facial weakness
CPT/HCPCS: 10112

== ENCOUNTER 2019-04-08 14:19 | Inpatient (IN) | payer OTHER, BC ==
[~2019-04-08] VITALS: Ht 160 cm; Wt 64.8 kg
[~2019-04-08 14:19] MED LIST changes: +PROTONIX 20 MG20 M1 PO
[2019-04-08 14:22] VITALS: BP 136/60
[2019-04-08 15:36] LABS: ABSOLUTE NEUTROPHILS 5.5 thou/uL (1.4-8.2); BASOPHILS 1.2 % (0.0-2.0); EOSINOPHILS 2.2 % (0.0-3.0); HEMOGLOBIN 11.9 gm/dL (12.0-15.0); LYMPHOCYTES 15.4 % (24.0-44.0); MCH 26.5 pg (26.0-34.0); MCHC 32.2 g/dL (28.0-37.0); MCV 82.1 fL (80.0-100.0); MONOCYTES 8.1 % (1.0-8.0); PLATELET COUNT 252 thou/uL (150-400); POLYS 73.1 % (36.0-66.0); RBC 4.51 mil/uL (4.20-5.00); RDW 17.8 % (10.5-14.5); WBC 7.6 thou/uL (4.0-11.0)
[2019-04-08 15:47] LABS: APTT 27.1 Seconds (24.5-32.8); PROTIME 10.1 Seconds (9.3-11.4)
[2019-04-08 15:50] LABS: ANION GAP 6 mmol/L (7-16); BUN 31 mg/dL (7-18); CALCIUM 9.2 mg/dL (8.5-10.1); CHLORIDE 103 mmol/L (98-107); CO2 27 mmol/L (21-32); CREATININE 1.1 mg/dL (0.6-1.0); GLUCOSE 89 mg/dL (74-106); SODIUM 136 mmol/L (136-145)
[2019-04-08 16:00] LABS: ALBUMIN 3.1 g/dL (3.4-5.0); SGOT 26 U/L (15-37); SGPT 13 U/L (30-65); TOTAL BILIRUBIN 0.4 mg/dL (<0.1-1.0); TOTAL PROTEIN 6.6 g/dL (6.4-8.2); TROPONIN-I <0.06 ng/mL (<0.06)
--- NOTE | 2019-04-08 16:50 | EKG ---
[place] [address] [facility] [place] [address] ELECTROCARDIOGRAM REPORT Name: ROHAN RITCHIE Room #: 170-1 ADM IN M.R.#: [id number] Admission: 04/08/19 Attend Phys: Wilma Robles MD Discharge: Date of : 33 Report #: [id number] THIS REPORT FOR: //name// [facility] ED Test Date: 2019-04-08 Test Time: 15:09:39 Pat Name: ROHAN RITCHIE Department: Room: 170 Gender: F 3D Modeler: olga : [id number] Requested By: Giorgio Adam Order Number: [id number] MD: Remi Fuller Measurements Intervals [place] Rate: 65 P: 16 WI: 156 QRS: -50 QRSD: 105 T: 18 QT: 404 QTc: 421 Interpretive Statements Sinus rhythm LAD, consider left anterior fascicular block Left ventricular hypertrophy Compared to ECG 02/11/2019 13:40:22 No significant changes Electronically Signed On 04-08-2019 16:49:52 [employer] HE[employer] MANAGER by Remi Fuller [email or web address] <ELECTRONICALLY SIGNED> By: Remi Fuller MD, [facility] 04/08/19 1649 [id number] Remi Fuller MD, FAC /EPI
[2019-04-08 16:51] VITALS: BP 145/68
[2019-04-08 17:45] VITALS: BP 141/75
--- NOTE | 2019-04-08 19:29 | NUR ---
Pt came to unit from ED approx 1820. Able to void in bedpan. Family at bedside. Report given to suha SMITH.
--- NOTE | 2019-04-09 00:13 | NUR ---
ASSUMED PATIENT CARE AT SHIFT CHANGE. ASSESSMENT CHARTED; SYSTEMS ASSESSMENT DONE WITH ASSIST FROM EVON Eaton RN. MEDICATIONS GIVEN PER JUL. PT IS AN ALERT AND ORIENTED, VSS, AND VOICES PAIN ON THE SITE OF FAILED IV INSERTIONS. THERE IS SOME NOTED BRUISING ON THESE SITES (L ARM). PRN TYLENOL GIVEN FOR PAIN. PATIENT STATES SHE TAKES TYLENOL REGULARLY "TO TAKE THE EDGE OFF". PATIENT USED BEDPAN THIS SHIFT AND REQUESTED TO USE IT UNTIL HER WEAKNESS IS RESOLVED BUT SHE DOES USE A WALKER AT HER HOME. PATIENT HAS NOT EATEN DINNER BUT SHE WILL WAIT FOR BREAKFAST. SCD'S WERE REFUSED TONIGHT.URINE OUTPUT IS ADEQUATE AND THERE ARE NO EPISODES OF INCONTINENCE AT THIS TIME. PATIENT HAS NEUROLOGY CONSULTED AND WILL BE HAVING NEURO CHECKS Q4HRS. PATIENT REPORTED PAIN UPON FLUSHING HER IV. ARM IS ELEVATED AND WILL BE MONITORED FREQUENTLY. PATIENT VOICES NO OTHER NEEDS AT THIS TIME. FALL PRECAUTIONS IN PLACE. SOFT TOUCH LIGHT INSTALLED AND AT PATIENTS REACH. WILL CONTINUE TO MONITOR AND FOLLOW PLAN OF CARE.
[2019-04-09 01:45] VITALS: BP 124/60
[2019-04-09] MEDS ORDERED: LOPROX90 GM TOP (02:37)
[2019-04-09 04:00] VITALS: BP 118/55
[2019-04-09 07:31] VITALS: BP 127/60
--- NOTE | 2019-04-09 09:28 | NUR ---
WOUND CARE NOTE consult to wound care regarding left great toe, pt states she had toe nail removed one week ago by system sales consultant, was at system sales consultant yesterday and fell after appt, was using an antifungal cream ciclopirox to both great toes, no open wound right great toe, left great toe healing, pt was told to leave nail open to air, pt states she wants to cont w/ system sales consultant rx of ciclopirox, will ask hospitalist to order for pt, or comparable med in hospital formulary, [employer] property staff accountant present and aware of pt request
--- NOTE | 2019-04-09 10:06 | NUR ---
cost coordinator to see patient. pt complains about diet. explained to patient that she needs a heart healthy diet. pt also complains about nursing care she is receiving on unit. I spoke with staff on unit to address complaints.
--- NOTE | 2019-04-09 12:10 | NUR ---
Case opened to follow for dc planning. Pt known to cm from recent 5N acute rehab stay following admission for CVA s/p TPA. The pt was dc'd back to her [facility] apt at [facility] with [facility] on 03/04/19. The pt is currently down for an MRI. Therapy evals pending. [employer] visited with the pt's dtr/dpoa Ernestine who is in her room. A copy of the dpoa for health care will be placed in the medical record. The pt's dtr reports that [facility] had just stopped seeing her at the end of last week. She is hoping she can return to the [facility] with a resumption of HH services. She is open to SNF at [place] or [facility] if recommended by the care team. [employer] spoke with the [facility] and the [facility]EPHANIA PatelRosamaria will need to reassess the pt for return to her apt [phone]; they are also concerned she may needs snf rehab prior to returning. DC network planner to fax update to [facility] and a snf referral. Will await the care team recommendations. Support provided to the pt's dtr.
--- NOTE | 2019-04-09 13:35 | NUR ---
PT RESIDES AT [facility] FAXED CLINICAL UPDATE AND RECEIVED CONFIRMATION AND SPOKE WITH SURY AT FACILITY HE WILL LET NURSE KNOW UPDATE FAXED. FAXED REFERRAL TO [facility] FOR POSS SKILLED STAY SPOKE WITH SANDY IN ADM SHE RECEIVED REFERRAL AND WILL REVIEW. DP TO FOLLOW.
--- NOTE | 2019-04-09 15:25 | NUR ---
CONSULT [id number] COMPLETED. THIS UNIVERSITY MANAGER WAS ABLE TO MEET THE PATIENT AND HER DAUYTER. WE DID LIFE REVIEW AND DISCUSSED THE CHALLENGES SHE HAS FACED MEDICALLY. WE CONCLUDED INORAYER.
[2019-04-09 15:30] VITALS: BP 141/70
--- NOTE | 2019-04-09 18:42 | NUR ---
ASSUMED PATIENT CARE AT 0700. A/O X4. RIGHT SIDE WEAKNESS. ASSISTED UP WALK IN ROOM. SLOWLY TOWARDS POC GOALS.
[2019-04-09 19:09] VITALS: BP 139/60
--- NOTE | 2019-04-10 00:20 | NUR ---
ASSUMED CARE OF PATIENT AT SHIFT CHANGE. ASSESSMENT CHARTED. MEDICATIONS GIVEN PER MAR. VSS. PATIENT IS A&OX4 AND SITTING ON RECLINER AT TIME OF CARE. PATIENT GETS UP X 1 USING A GB AND WALKER TO BED AND BEDSIDE COMMODE. PATIENT STILL VOICES R SIDED WEAKNESS BUT DENIES PAIN AT THIS TIME. PATIENT VOICES NO OTHER CONCERNS AT THIS TIME. PLAN IS FOR CM TO CONTINUE LOOKING FOR PLACEMENT FOR THIS PATIENT. FALL PRECAUTIONS IN PLACE. WILL CONTINUE TO MONITOR AND FOLLOW POC.
[2019-04-10 02:54] VITALS: BP 130/78
--- NOTE | 2019-04-10 04:12 | NUR ---
CONTINUE CARE OF PT @23OO PT ASLEEP IN BED ON ASSESSEMENT. CALLS APPROPRIATELY. ASSISTX1 WITH GB AND WALKER TO BSC. HOURLY ROUNDING DONE AND FALL PREC IN PLACE WILL CONT WITH POC TILL EOS.
[2019-04-10 09:00] VITALS: BP 139/69
[2019-04-10 16:11] VITALS: BP 123/67
--- NOTE | 2019-04-10 16:40 | NUR ---
Update faxed to [facility] liason today. They are not sure if they will have snf bed tomorrow as their one discharge may end up staying a couple more days. Low is evaling the pt for another rehab stay;however she has had one recently and may not quailify for another one. Awaiting response from both [facility] and SNF in the am. Update given to the pt and her dtr Ernestine at bedside. Back up plan discussed and and snf listing provided. Dtr would consider touring [facility], and [facility] if needed. Possible dc tomorrow. Will f/u with the care team in the am and then update the pt/dtr to determine if we need to pursue additional snf options.
[2019-04-10 19:45] VITALS: BP 122/56
[2019-04-11 04:09] LABS: URINE BILIRUBIN NEGATIVE (Negative); URINE BLOOD TRACE (Negative); URINE CLARITY CLEAR; URINE COLOR YELLOW; URINE GLUCOSE-RANDOM* NEGATIVE (Negative); URINE KETONES NEGATIVE (Negative); URINE LEUKOCYTES-REFLEX NEGATIVE (Negative); URINE NITRITE-REFLEX NEGATIVE (Negative); URINE PROTEIN (DIPSTICK) NEGATIVE (Negative); URINE UROBILINOGEN 0.2 E.U./dl (0.2-1.0)
[2019-04-11 04:32] LABS: AMP/METHAMP Negative (Negative); BARBITURATES Negative (Negative); BENZODIAZEPINES Negative (Negative); COCAINE Negative (Negative); METHADONE Negative (Negative); OPIATES Negative (Negative); PCP Negative (Negative)
[2019-04-11 07:30] VITALS: BP 123/54
[2019-04-11 07:35] VITALS: BP 125/42
--- NOTE | 2019-04-11 10:01 | NUR ---
WOUND CARE FOLLOW UP; THE LEFT GREAT TOE IS HEALED. NO OTHER CONCERNS AT THIS TIME. PATIENT IS TO BE D/C'D TODAY TO A SKILLED FAUCILITY. RECOMMENDATIONS; WOUND CARE WILL SIGN OFF. RECONSULT IF NEEDED. DISCUSSED WITH SARAH
--- NOTE | 2019-04-11 11:03 | NUR ---
Assumed pt care at 0700. Pt is AOx4, VSS, no compliant of pain at this time. Patient is participating well with Physical Therapy. Fall precautions in place, calls approp, call light/personal items within reach, will continue to monitor.
--- NOTE | 2019-04-11 13:01 | NUR ---
CARE TEAM INDICATED THAT THEY ARE STARTING PT ON NEW MEDICATION FOR PARKINSONS AND THEREFORE THEY ARE ABLE TO ACCEPT PT TO 5N ACUTE INPATIENT REHAB HERE AT THE HOSPITAL. CARE TEAM INDICATED THAT SHE IS MEDICALLY STABLE TO DC TO 5N TODAY. CM NOTIFIED PT, DTR, AND GAGE IN ADMISSIONS AT [facility]. REPORT TO BE CALLED TO . NO OTHER CM INTERVENTION INDICATED.
[2019-04-11] MEDS ORDERED: CARBIDOPA-LEVO1 EAC9 PO (13:17)
--- NOTE | 2019-04-11 15:03 | NUR ---
NURSE CALLED REPORT TO [facility] IN REHAB. PATIENT WILL TRANSFER BY WHEELCHAIR PER STAFF AND DAUGHTER IS WITH PATIENT. PT VSS, NO C/O PAIN AT THIS TIME, AND BELONGINGS ARE PACKED AND TRANSPORTED WITH PATIENT.
[2019-04-23] MEDS ORDERED: CARBIDOPA-LEVO1 EAC9 PO (10:47)
--- NOTE | 2019-04-25 13:29 | HC ---
[facility] [place] [address] CONSULTATION Name: ROHAN RITCHIE Room #: 435-[facility] IN M.R.#: [id number] Admission: 04/08/19 Attend Phys: Wilma Robles MD Discharge: 04/11/19 Date of : 33 Report #: [id number] THIS REPORT FOR: //name// CC: Wilma Sainz DATE OF SERVICE: 04/08/2019 HISTORY OF PRESENT ILLNESS: This is an 84-year-old female patient who has been admitted here and multiple other hospitals with weakness on the right side. She even received TPA at one time. I had seen her in the past, but I am never certain about the etiology of her symptoms. She said she started having some shakiness on the right side and became more weak. She apparently has been to [facility] and I have never got any record from them. Her history is poor, but she indicated that she has become weaker than she was before. REVIEW OF SYSTEMS: Indicate that she had multiple falls. She had broken ribs. She has non-STEMI. She has spastic hemiplegia of the right side. She has pneumothorax. This was a relevant 14-point review of system. She also has some right shoulder arthritis, hypertension, history of breast cancer, hyperlipidemia, hiatal hernia, constipation, balance problems, scoliosis, osteoporosis, osteoarthritis. She had previous cholecystectomy, appendectomy and hiatal hernia surgery that was a relevant 14-point review of system. PAST MEDICAL HISTORY: Positive for right hemiplegia. We never found any good cause for that. FAMILY HISTORY: Unremarkable. SOCIAL HISTORY: She has a daughter who was with her and she provided some of the history. In this patient, we have done extensive workup at one time. We also did an MRI of the whole spine earlier this year including the lumbar spine. She is moderately built individual. Her blood pressure is 141/75, respirations 14, pulse is 68. Cardiac examination is unremarkable. Pulses are difficult to feel. No edema, cyanosis or jaundice. No respiratory difficulty. LABORATORY DATA: Indicate a white count of 7.6 and sodium of 136. IMPRESSION: I am not sure what the etiology of the patient's symptom is. She keeps coming up with these symptoms. We have never determined any cause. The only thing we have not done is a spinal tap, I will repeat the MRI and we may do that. [facility] [address] [place] [address] CONSULTATION Name: ROHAN RITCHIE Room #: 435-[facility] IN M.R.#: [id number] Admission: 04/08/19 Attend Phys: Wilma Robles MD Discharge: 04/11/19 Date of : 33 Report #: [id number] Thank you very much for this referral. If you have any question, please feel free to contact me. <ELECTRONICALLY SIGNED> By: Clint Pitt MD 04/25/19 1329 [id number] [id number] Clint Pitt MD /ramandeep
== END 2019-04-11 15:36 | DRG 56 ==
LOC: ER 14:19 → EROBS 16:20 → 4S 16:20
PROVIDERS: Emergency Medicine; ADMIT Internal Medicine
DX: G81.11 Spastic hemiplegia affecting right dominant side (principal); E43 Unspecified severe protein-calorie malnutrition; N17.9 Acute kidney failure, unspecified; G45.9 Transient cerebral ischemic attack, unspecified; E46 Unspecified protein-calorie malnutrition; E78.5 Hyperlipidemia, unspecified; M81.0 Age-related osteoporosis without current pathological fracture; K59.00 Constipation, unspecified; M19.011 Primary osteoarthritis, right shoulder; N18.9 Chronic kidney disease, unspecified; Z60.2 Problems related to living alone; E53.8 Deficiency of other specified B group vitamins; G20 Parkinson's disease; M62.84 Sarcopenia; I12.9 Hypertensive chronic kidney disease with stage 1 through stage 4 chronic kidney disease, or unspecified chronic kidney disease; M41.9 Scoliosis, unspecified; Z90.49 Acquired absence of other specified parts of digestive tract; Z90.722 Acquired absence of ovaries, bilateral; Z86.73 Personal history of transient ischemic attack (TIA), and cerebral infarction without residual deficits; Z85.3 Personal history of malignant neoplasm of breast; Z87.81 Personal history of (healed) traumatic fracture; Z88.1 Allergy status to other antibiotic agents; Z88.0 Allergy status to penicillin; Z88.8 Allergy status to other drugs, medicaments and biological substances; Z68.25 Body mass index [BMI] 25.0-25.9, adult
CPT/HCPCS: 10195

== ENCOUNTER 2019-04-11 13:02 | Inpatient (IN) | payer OTHER, BC ==
[~2019-04-11] VITALS: Ht 160 cm; Wt 64.9 kg
[~2019-04-11 13:02] MED LIST changes: +LOPROX90 GM TOP
[2019-04-11] MEDS ORDERED: CARBIDOPA-LEVO1 EAC9 PO (13:17)
--- NOTE | 2019-04-11 13:56 | NUR ---
WOUND CARE NOTE; THE PATIENT'S LEFT GREAT TOE WAS REASSESSED TODAY AND IT IS HEALED. I WILL BE FOLLOWING THIS PATIENT FOR PREVENTITIVE MEASURES. I WILL RE-ASSESS Sunday04/14/19. RECOMMENMDATIONS; LEAVE VOUCHER EXAMINER
--- NOTE | 2019-04-11 15:00 | NUR ---
chart review, amena visited with pt and daughter at bedside prior to coming up to 5n acute rehab today. pt has been on acute rehab before " i glad get to have rehab here"/sidney. she up in recliner chair, a & o x 3, pleasant and able to make her needs know. pt lives at [facility]. had continua hh in past. has 4ww and wheel chair. able to go to dinning room for meals. pat plan on returning home after dc. no longer drives. has support from her daughter and family. will cont following as needed for dc needs.
--- NOTE | 2019-04-11 16:27 | NUR ---
PT ARRIVED AT 1530 FROM 4S. VITALS ARE STABLE. PT C/O MILD LEFT LLE PAIN, AGGRAVATED BY MOVEMENT. HS STABLE, PEDAL PULSES 2+. PT HAS BRUISING ON OXANA ARMS. ALERT AND ORIENTED *4. RIGHT SIDED WEAKNESS NOTED. PT REPORTED THAT SHE FEELS GENERAL WEAKNESS. UP WITH 1 MIN ASSIST, GB AND WALKER AND TOLERATED WELL. HOURLY ROUNDING. FALL PRECAUTIONS IN PLACE. CALL LIGHT WITHIN REACH
[2019-04-11 20:32] VITALS: BP 145/71
--- NOTE | 2019-04-11 22:47 | NUR ---
PT ASSESSMENT DONE AND VSS. PT UNHAPPY THAT SHE HAD TO WAIT FOR ASSISTANCE TO GO TO BED AFTER FAMILY LEFT. STAFF GOT TO HER SOON WE COULD. MEDS GIVEN AND WELL TOLERATED. FALL PRECAUTIONS IN PLACE. HOURLY ROUNDING. CALL LIGHT IN REACH. WILL CONTINUE TO MONITOR.
[2019-04-12 06:03] LABS: HEMATOCRIT 41.2 % (37.0-47.0); HEMOGLOBIN 13.1 gm/dL (12.0-15.0); MCH 26.2 pg (26.0-34.0); MCHC 31.8 g/dL (28.0-37.0); MCV 82.4 fL (80.0-100.0); RDW 17.5 % (10.5-14.5); WBC 5.5 thou/uL (4.0-11.0)
[2019-04-12 06:17] LABS: CALCIUM 9.7 mg/dL (8.5-10.1); POTASSIUM 4.3 mmol/L (3.5-5.1)
--- NOTE | 2019-04-12 13:57 | NUR ---
ASSUME PT CARE AT 0700. VITALS ARE STABLE. PT C/O MILD LEFT LLE PAIN, AGGRAVATED BY MOVEMENT. DENIES NEED FOR PAIN MED. PEDAL PULSES 2+. PT HAS BRUISING ON OXANA ARMS. ALERT AND ORIENTED X4. ABLE TO VOICE HER NEEDS. RIGHT SIDED WEAKNESS NOTED. PT REPORTED THAT SHE FEELS GENERAL WEAKNESS. UP WITH 1 MIN ASSIST, GB AND WALKER AND TOLERATED WELL. PT PREFERS TO USE BSC TODAY D/T FEELING WEAK. CONT B&B. HAS MODERATE HARD BM TODAY. ENCOURAGED PT TO DRINK MORE FLUID. PT UP TO DINNING ROOM FO MEALS ABLE TO FEED HERSELF. HOURLY ROUNDING. FALL PRECAUTIONS IN PLACE. CALL LIGHT WITHIN REACH. RESTING IN RECLINER AT THIS MOMENT. WILL CONTINUE TO MONITOR.
[2019-04-12 19:39] VITALS: BP 145/82
--- NOTE | 2019-04-13 04:23 | NUR ---
ASSESSMENT: PT REMAIN ALERT AND ORIENT TIMES THREE, FORGETFUL AT TIMES. DAUGHTER IS TO BRING ANTIFUGAL MED TODAY FOR PT'S GREAT TOE. NO BM THIS SHIFT. SLEPT WELL DURING THE NIGHT. SLOW PROGRESS TOWARDD DC GOALS, WILL CONTINUE TO MONITOR.
--- NOTE | 2019-04-13 04:41 | NUR ---
ASSESSMENT: PT REMAIN ALERT AND ORIENT TIMES THREE, CALLS OUT APPROPRIATELY FOR BR USE. DENIE PAIN, SOB AND N/V. SON WAS AT THE BEDSIDE EARLIER DURING THE DAY. UP SBA. PT SLEPT WELL DURING THE NIGHT WITH NO COMPLAINTS. SLOW PROGRESS TOWARDS DC GOLAS, WILL CONTINUE TO MONITOR.
[2019-04-13 08:00] VITALS: BP 121/60
--- NOTE | 2019-04-13 14:01 | NUR ---
ASSUMED CARE OF PT AT 0715. PT IS A&OX4. IS ON ROOM AIR. IS STABLE. REPORTS CHRONIC PAIN IN BOTH SHOULDER IN WHICH IS BEING MANAGED WITH TOPICAL PAIN MEDICATIONS. PT IS UP WITH WITH 1 ASSIST, CHARLINE WALKER. REQUIRES EXTRA TIME. FALL PRECAUTIONS & HOURLY ROUNDING CONINTUED THIS SHIFT. LABS & VITALS REVIEWED. PT LIKES FOR OTHERS TO FEED HER, HER MEDS, BUT IS ABLE TO DO SO HERSELF. PT WAS ENCOURAGED TO DO WHAT SHE CAN FOR HERSELF AND WE ARE HERE TO ASSIST HER WITH WHAT SHE CANNOT. THIS IS THE POINT OF REHAB. DAUGHTER BROUGHT UP [employer] 0.77% 30 GM WITH INSTRUCTIONS FOR APPLICATIONS. THIS NURSE EXPLAINED TO DAUGHTER THAT IT WILL BE SENT TO PHARMACY FOR VERIFICATION & LABELING. PT APPEARED AGITATED. PT IS PLEASANT AT THIS TIME. IS UP IN RECLINER IN ROOM. CALL LIGHT WITHIN REACH. ALARM IN PLACE. WILL CONINTUE TO MONITOR.
[2019-04-13 19:25] VITALS: BP 142/78
--- NOTE | 2019-04-13 23:24 | NUR ---
PT ASSESSMENT DONE AND VSS. MEDS GIVEN AND WELL TOLERATED. FALL PRECAUTIONS IN PLACE. SLEEPING WELL. HOURLY ROUNDING. CALL LIGHT IN REACH. WILL CONTINUE TO MONITOR.
[2019-04-14 08:15] VITALS: BP 126/71
--- NOTE | 2019-04-14 13:44 | NUR ---
ASSUME PT CARE AT 0700. REPORTS SLEPT WELL LAST NIGHT. VITALS ARE STABLE. PT HAS ORDER FOR ANTIFUGAL CREAM FOR HER GREAT TOES. NOTIFIED JENNIFER AND ORDER ENTERED. WILL SEND TO PHARMACY FOR LABEL. PT DENIES PAIN, SOB, N/V. LAST BM WAS 2 DAYS AGO. PT REQUESTS TO HAVE ONE STOOL SOFTERNER PRN NOT SCHEDULE. WILL NOTIFIED JENNIFER FOR ORDER. PEDAL PULSES 2+. PT HAS BRUISING ON OXANA ARMS. ALERT AND ORIENTED X4. ABLE TO VOICE HER NEEDS. RIGHT SIDED WEAKNESS NOTED. PT REPORTED THAT SHE FEELS GENERAL WEAKNESS. UP WITH 1 MIN ASSIST, GB AND WALKER AND TOLERATED WELL. CONT B&B. ENCOURAGED PT TO DRINK MORE FLUID. PT UP TO DINNING ROOM FOR MEALS ABLE TO FEED HERSELF. HOURLY ROUNDING. FALL PRECAUTIONS IN PLACE. CALL LIGHT WITHIN REACH. RESTING IN RECLINER AT THIS MOMENT. WILL CONTINUE TO MONITOR.
[2019-04-14 19:24] VITALS: BP 140/63
--- NOTE | 2019-04-15 02:30 | NUR ---
PT ALERT AND ORIENTED X 4. AMB TO BR WITH WALKER AND ASSIST X 1. UNSTEADY GAIT. PT TAKES MEDS WHOLE IN APPLESAUCE WITHOUT DIFFICULTY. BOTH GREAT TOES RED AND TENDER TO TOUCH. PT DENIES PAIN OR DISCOMFORT. BED ALARM ON FOR SAFETY. PT APPEARS TO BE SLEEPING ON HOURLY ROUNDS.
[2019-04-15 08:06] VITALS: BP 131/65
--- NOTE | 2019-04-15 08:23 | NUR ---
ASSUME PT CARE AT 0700. REPORTS SLEPT WELL LAST NIGHT. VITALS ARE STABLE.C/O SHOULDERS PAIN, REQUESTS FOR TYLENOL, BUT ONLY TOOK ONE 325MG. VOLTAREN GEL APPLIED. PAIN IS DOWN TO 3/10 NOW. OT ASSISTED PT TO HAVE SPONGE BATH. ANTIFUGAL CREAM APPLIED GREAT TOENAILS. PT DENIES SOB, N/V. LAST BM WAS YESTERDAY. PT HAS OREDER FOR SENOKOT 2TABLETS. PT REFUSES JUST WANT JUST TO TAKE ONE AT [facility] ONLY. WILL NOTIFY JENNIFER TO CHANGE ORDER. REASSESSMENT PER CHART. REDNESS IS GETTING BETTER. PT HAS BRUISING ON OXNAA ARMS. ALERT AND ORIENTED X4. ABLE TO VOICE HER NEEDS. RIGHT SIDED WEAKNESS NOTED. PT REPORTED THAT SHE FEELS GENERAL WEAKNESS. UP WITH 1 MIN ASSIST, GB AND WALKER AND TOLERATED WELL. CONT B&B. PT UP TO DINNING ROOM FOR BREAKFAST ABLE TO FEED HERSELF. PT IS IN GOOD SPIRIT THIS AM.HOURLY ROUNDING. FALL PRECAUTIONS IN PLACE. HER GOAL IS TO CONTINUE WITH HER THERAPY TODAY TO GET STRONGER. HAS NO CONCERN AT THIS MOMENT. WILL CONTINUE TO MONITOR.
--- NOTE | 2019-04-15 12:32 | NUR ---
team meeting, recommendation: dc 04/23/19 back to [facility] and home health continua (pt, ot,). no dme needed.
--- NOTE | 2019-04-15 14:43 | NUR ---
DISCHARGE PLANNING. ANTICIPATED DISCHARGE PLANNED FOR 04/23 PER UNIT CM. PATIENT TO DISCHARGE BACK TO [facility] WITH [facility]. PATIENT CLINICALS FAXED TO [facility]. CALL PLACED TO NEREYDA HERNANDEZ MS DIRECTOR TO NOTIFY. CALL PLACED TO DOC MARTINEZ INTAKE LIAISON TO NOTIFY. FOLLOWING TO ASSIST.
[2019-04-15 19:45] VITALS: BP 133/69
--- NOTE | 2019-04-15 22:32 | NUR ---
PT ASSESSMENT DONE AND VSS. MEDS GIVEN AND WELL TOLERATED. FALL PRECAUTIONS IN PLACE. SLEEPING WELL. HOURLY ROUNDING. CALL LIGHT IN REACH. WILL CONTINUE TO MONITOR.
--- NOTE | 2019-04-16 08:20 | NUR ---
Nutrition: Following for oral intake, supplement use. Visited pt at breakfast. Meal average up from 40% to 54% per last 3 days of po intake. Consuming 50-75% of most meals as of late. Typically drinks 2 Ensure Enlive/day (minimum 1/day consumed). Continues on heart healthy diet w/ mechanical ground meats. Recent BM 04/15. Was displeased w/ eggs this AM d/t being too watery. Encouraged milk and Ensure for adequate protein. Plan to incorporate finely chopped uruguayan toast for breakfast q other day and add cottage cheese w/ fruit 3-4x/week for increased food interest/protein. RD encouraged beverages w/ kcals like Ensure, juice, hot chocolate. Pt unconcerned about wt, mindful of kcals, not wanting to gain. Change to low nutrition risk now that meal intakes steadily improved to 50-75% and menu enhancements made.
[2019-04-16 10:30] VITALS: BP 101/50
--- NOTE | 2019-04-16 17:04 | NUR ---
ASSUMED CARE OF PATIENT AT 0700. VSS. ROOM AIR. ALERT AND ORIENTED X4. 1 ASSIST WITH WALKER TO BATHROOM. PATIENT COMPLIANT WITH THERAPY/TREATMENT. PATIENT ADVANCING TOWARDS DISCHARGE GOALS, CONTINUING TO MONITOR.
[2019-04-16 19:55] VITALS: BP 122/69
--- NOTE | 2019-04-17 02:54 | NUR ---
patient aox4 makes needs known. patient needs minimum assistance with adl, bed mobility, transfer and toileting. patient denied pain and discomfort. patient encouraged fluids. patient uses bedside commode at night. patient ambulates to the bathroom with steady gaits. call light and personal items within reach. patient in bed asleep at this time breathing regular and unlaboured.
[2019-04-17 10:30] VITALS: BP 122/65
--- NOTE | 2019-04-17 11:23 | NUR ---
ASSUMED CARES AT 0700. PT AWAKE, ALERT AND ORIENTED*4. DENIES PAIN. VITALS REMAIN STABLE. CONTINUES TO HAVE RIGHT SIDED WEAKNESS. BRUISING ON ARMS IMPROVED. PT BATHED AND DRESSED. LEFT AT 1100 WITH DAUGHTER. [place] SCHEDULED FOR 1400 SENT WITH DAUGHTER. PT WILL RETURN BEFORE 1700 THIS EVENING.
[2019-04-17 21:03] VITALS: BP 126/62
--- NOTE | 2019-04-17 22:20 | NUR ---
PT ASSESSMENT DONE AND VSS. MEDS GIVEN AND WELL TOLERATED. FALL PRECAUTIONS IN PLACE. SLEEPING WELL. HOURLY ROUNDING. CALL LIGHT IN REACH. WILL CONTINUE TO MONITOR.
[2019-04-18 08:16] VITALS: BP 131/77
--- NOTE | 2019-04-18 14:49 | NUR ---
ASSUMED CARES AT 0700. PT AWAKE, ALERT AND ORIENTED *4. DENIES PAIN. VITALS REMAIN STABLE. PT CONTINUES TO HAVE BRUISING IN BUE. CONTINUES TO HAVE RIGHT SIDED WEAKNESS. PARTICIPATED IN ALL THERAPIES AND TOLERATED WELL. UP TO THE DINING AREA FOR ALL MEALS. Q1H VISUAL CHECKS. CALL LIGHT WITHIN REACH. FALL PRECAUTIONS IN PLACE.
[2019-04-18 19:38] VITALS: BP 130/65
--- NOTE | 2019-04-19 03:18 | NUR ---
ASSESSMENT: PT REMAIN ALERT AND ORIENT TIMES THREE. UP TO BSC WITH GB AND SBA. USES CALL BUTTON APPROPRIATELY. VSS, AFEBRILE. PT ENJOYED BEING WITH FAMILY YESTERDAY FOR THANKSGIVING. PT HAD A THERAPEUTIC DAY PASS, HER ONLY CONCERN WAS THAT THE GRANDDAUGHTER DID NOT "SIGN IN OR OUT" FOR HER VISIT AND SHE WAS CONCERNED IF SHE'D BE IN "TROUBLE WITH SOMEONE". ASSURANCE GIVEN. DENIES PAIN. SLOW PROGRESS TOWARDS DC GOALS, WILL CONTINUE TO MONITOR.
[2019-04-19 09:36] VITALS: BP 106/66
--- NOTE | 2019-04-19 17:34 | NUR ---
AAOX4 PLEASANT AND COOPERATIVE. GOOD APPETITE FOR MEALS, ATE ALL MEALS IN DINNING ROOM. AMBULATES WITH SLOW STEADY GAIT USING ROLLER WALKER. WORKS WELL WITH THERAPIES.
[2019-04-19 20:11] VITALS: BP 130/68
--- NOTE | 2019-04-20 00:21 | NUR ---
PT ALERT AND ORIENTED X 4. UP TO BSC WITH ASSIST X 1 WITHOUT DIFFICULTY. VOIDING ADEQUATE AMTS CLEAR YELLOW URINE. PT DENIES PAIN OR DISCOMORT. BED ALARM ON FOR SAFETY. PT APPEARS TO BE SLEEPING ON HOURLY ROUNDS.
[2019-04-20 08:53] VITALS: BP 132/62
--- NOTE | 2019-04-20 18:24 | NUR ---
ASSUMED CARE OF PT AT 0715. PT IS A&OX4. IS ON ROOM AIR. REPORTS BILAT SHOULDER PAIN THAT IS BEING MANAGED WITH TOPICAL PAIN MEDS. IS UP WITH 1 ASSIST, GB, WALKER TO TOILET & MEALS. REQUIRES EXTRA TIME. FALL PRECAUTIONS & HOURLY ROUNDING MAINTAINED. LABS & VITALS REVIEWED. IS CURRENTLY UP IN RECLINIER WATCHING THE FOOTBALL GAME. CALL LIGHT WITHIN REACH. WILL CONTINUE TO MONITOR.
[2019-04-20 19:20] VITALS: BP 113/58
--- NOTE | 2019-04-21 00:14 | NUR ---
PT ALERT AND ORIENTED X 4. AMB TO BR WITH WALKER AND ASSIST X 1. PT C/O PAIN IN RIGHT HAND. REFUSED PAIN MEDS. BED ALARM ON FOR SAFETY. PT APPEARS TO BE SLEEPING ON HOURLY ROUNDS.
[2019-04-21 08:40] VITALS: BP 106/58
--- NOTE | 2019-04-21 15:16 | NUR ---
ASSUMED CARES AT 0700. PT AWAKE, ALERT AND ORIENTED*4. C/O MILD OXANA SHOULDER PAIN, VOLTAREN GEL APPLIED. VITALS REMAIN STABLE. PT CONTINUES TO HAVE BRUISING ON OXANA ARMS. REDNESS NOTED BELOW LEFT BREAST AND AROUND WAISTLINE, BARRIER CREAM APPLIED AND PT ENCOURAGED TO AVOID WEARING DEPENDS AT NIGHT. PT CONTINUES TO HAVE RIGHT SIDED WEAKNESS. UP TO THE DINING AREA FOR ALL MEALS. PARTICIPATED IN ALL THERAPIES AND CONTINUES TO PROGRESS TOWARDS DC GOALS. Q1H VISUAL CHECKS. CALL LIGHT WITHIN REACH. FALL PRECAUTIONS IN PLACE
[2019-04-21 19:15] VITALS: BP 131/71
--- NOTE | 2019-04-22 02:09 | NUR ---
ASSESSMENT; POT REMAIN ALERT AND ORIENT TIMES FOUR. UP WITH SBA/GB/WALKER TO BR. OXANA VALDES PAINFUL, DICLOFENEC GEL APPLIED. POSSIBLE DC ON THE 4TH TO AN ASSISTED LIVING FACILITY. NO FURTHER COMPLAINTS. SLOW PROGRESS TOWARDS DC GOALS, WILL CONTINUE TO MONITOR.
--- NOTE | 2019-04-22 06:42 | HC ---
[facility] [place] [address] CONSULTATION Name: ROHAN RITCHIE Room #: 509-P ADM IN M.R.#: [id number] Admission: 04/11/19 Attend Phys: jK Gottlieb MD Discharge: Date of : 33 Report #: [id number] THIS REPORT FOR: //name// CC: Kj Sainz DATE OF SERVICE: 04/18/2019 NEUROBEHAVIORAL STATUS EXAMINATION ATTENDING PHYSICIAN: Kj Gottlieb MD WASTE PICKER: Kailash Galvez, PhD CLINICAL PRESENTATION: The patient is an 84-year-old female admitted to the rehabilitation unit at [facility] for a comprehensive inpatient rehabilitation program. She was initially admitted to the hospital after a fall after leaving her doctor's office. The patient has a history of multiple falls. A previous hospitalization was a result of a fall in which she had fractured several ribs on August 2018. On admission to the hospital, she had an MRI which was negative for a cerebrovascular accident. She was subsequently diagnosed with Parkinson's disease. 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 A complete description of her medical condition and history along with medications can be found in her medical record. Neuropsychological consultation was requested to provide assistance in the assessment of cognitive and emotional status and provide recommendations and services. Prior to this most recent admission, she was living in an assisted living section at the [facility]. The patient was living independently in her own home prior to moving to [facility] in April 2018. The patient was seen in January 2019 for a neurobehavioral status exam. At that time, an MRI of the brain revealed an old right frontal infarct and lacunar bilateral hemisphere infarctions. Impression was a major neurocognitive disorder that was possibly due to vascular disease that was likely in the moderate range. The patient is a high school graduate. 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 She has 2 children. One child lives nearby and is supportive. Her about 10 years ago. She reports concern about her son who has had a cancer diagnosis and currently under going treatment. [facility] [address] [place] [address] CONSULTATION Name: ROHAN RITCHIE Room #: 509-P [facility] IN M.R.#: [id number] Admission: 04/11/19 Attend Phys: Kj Gottlieb MD Discharge: Date of : 33 Report #: [id number] TECHNIQUES UTILIZED: Clinical interview, review of medical records, staff consultation and behavioral observation, mini mental status exam 2 standard version, digits forward, digits backward, brief verbal fluency assessment and clock drawing. EXAMINATION FINDINGS: The patient was alert and cooperative with the assessment. She accurately described events surrounding her admission. She does not present with aphasia. Her thoughts are logical and goal oriented. There is no evidence of thought disorder. She does not report auditory or visual hallucinations. She describes symptoms to include anxiety and depressed mood along with variability in memory. Sleep, appetite, energy level, word finding are reported as within normal limits. Her performance on the MMSE 2 brief version is extremely low with a raw score of 10 of 16, which is a T score of 15 and percentile rank of less than 1. She was 3/3 for initial registration, 3/5 for orientation to time, 4/[address] and 0/3 for immediate recall of 3 items after a brief time delay and distraction. Her performance on the standard version of the MMSE 2 was extremely low with a raw score of 19, T score 21 and percentile rank of less than 1. She was 1/5 for serial sevens, 2/2 for naming, 1/1 for repetition, 3/3 for auditory comprehension. She could read and follow single command. She was unable to write a sentence; however, she could copy a simple geometric design. The patient had difficulty with visual spatial construction during clock drawing. Writing was micrographic. Digits forward was in the average range with a T score of 52. Digits backward was in the low average range with a T score of 51. Initial focused attention appears within normal limits. Sustained concentration and working memory are showing mild impairment. Letter fluency was extremely low with a raw score of 5, T score of 25. Brief category fluency assessment was within normal limits in the average range with a T score of 45. Her performance on the MMSE 2 during the assessment in January was higher with a raw score of 12 versus 10. She had a higher level of immediate recall. Similarly, her performance on the standard version of the MMSE 2 was a raw score of 19, at this time compared to 21 during the previous evaluation once again suggesting an impairment in current functioning. Her performance in letter fluency is consistent with the previous evaluation. The patient is showing a subtle to mild deficit in neurocognitive functioning in comparison to her previous hospitalization. Deficits continue in immediate recall, concentration/attention and higher level executive functioning. DIAGNOSTIC IMPRESSION: Major neurocognitive disorder (dementia), likely [facility] [address] [place] [address] CONSULTATION Name: ROHAN RITCHIE Room #: 509-P ADM IN M.R.#: [id number] Admission: 04/11/19 Attend Phys: Kj Gottlieb MD Discharge: Date of : 33 Report #: [id number] multifactorial due to both vascular disease with parkinsonian features and without behavior disorder, likely in the moderate range. RECOMMENDATIONS: Continued placement in assisted living appears adequate based on cognitive status. She will require assistance in the management of medication, finances and nutrition. Assistance in planning and problem solving will be necessary because of safety concerns and diminished cognition. Environmental needs are to maintain safety and hopefully diminish the frequency of her falling. Thank you very much for allowing me to provide the consultation on this patient. <ELECTRONICALLY SIGNED> By: Kailash Galvez, PhD 04/22/19 [id number] Kailash Galvez, PhD /nt
[2019-04-22 08:15] VITALS: BP 144/86
--- NOTE | 2019-04-22 11:26 | NUR ---
ASSUMED CARE AT 0700. PATIENT IS ALERT AND ORIENTED X3, BUT CAN BE FORGETFUL. PATIENT DICKERSON'S, BARNWORKER GROOM ARE EQUAL. LUNGS ARE CLEAR. ABD IS SOFT WITH BSX4. UP TO THE BATHROOM WITH ASSIST OF 1 STAFF WITH GAIT BELT AND WALKER TO VOID MARINA COLORED URINE. OUT TO THE DINING ROOM FOR MEALS. FALL AND SAFETY PROTOCOLS IN PLACE. C/O PAIN IN HER SHOULERS. MEDICATED WITH VOLTARIN GEL. PATIENT CONTINUES TO PROGRESS TOWARDS D/C GOALS. WILL CONTINUE TO MONITER.
--- NOTE | 2019-04-22 13:53 | NUR ---
team meeting, recommendation: dc 4th back to [facility] with continua hh ( pt, ot, nursing) no dme. supervision for long distances 200 + feet.
[2019-04-22 17:20] VITALS: BP 144/86
[2019-04-22 19:21] VITALS: BP 133/73
[2019-04-22] MEDS ORDERED: CARBIDOPA-LEVO1 EAC9 PO (21:29)
--- NOTE | 2019-04-22 22:12 | NUR ---
PT ASSESSMENT COMPLETED AND VSS. MEDS GIVEN ORDERED AND WELL TOLERATED. FALL PRECAUTIONS IN PLACE. UP TO THE BATHROOM WITH ASST/GAIT/WALKER. STEADY. DENIES NEEDS. SLEEPING WELL. WILL CONTINUE TO MONITOR FREQUENTLY.
[2019-04-23 07:21] VITALS: BP 105/57
--- NOTE | 2019-04-23 10:34 | NUR ---
ASSUMED CARES AT 0700. PT AWAKE, ALERT AND ORIENTED*4. C/O MILD OXANA. SHOULDER PAIN, VOLTAREN GEL APPLIED. VITALS REMAIN STABLE. CREAM APPLIED TO OXANA. BIG TOE, REDNESS IMPROVED. BRUISES REMAIN IN OXANA UPPER EXTREMITIES. PT UP WITH 1 MIN ASSIST, GB AND WALKER AND TOLERATED. PT TEACHING TO BE COMPLETED WITH DAUGHTER AND PATIENT AT THE BEDSIDE. Q1H VISUAL CHECKS. CALL LIGHT WITHIN REACH. FALL PRECAUTIONS IN PLACE
[2019-04-23] MEDS ORDERED: CARBIDOPA-LEVO1 EAC9 PO ×2 (10:47)
--- NOTE | 2019-04-25 16:25 | PLAN ---
[facility] [place] [address] REHAB UNIT PLAN OF CARE Name: ROHAN RITCHIE Room #: 509-P DIS IN M.R.#: [id number] Admission: 04/11/19 Attend Phys: Kj Gottlieb MD Discharge: 04/23/19 Date of : 33 Report #: [id number] THIS REPORT FOR: //name// CC: Kj Sainz DATE OF SERVICE: 04/14/2019 PROGRESS NOTE AND OVERALL PLAN OF CARE SUBJECTIVE: The patient is seen back today in followup. OBJECTIVE: GENERAL: The patient is alert, in no distress. VITAL SIGNS: Last recorded temperature 36.7, pulse 79, respirations 18, and blood pressure 142/78. EXTREMITIES: No focal calf swelling. NEUROLOGIC: Without obvious changes. Transfers are min assist. Gait is contact guard 75 feet, 4-wheeled walker. In occupational therapy, lower body dressing is max assist. In speech therapy, [id number] comprehensive deficits. ASSESSMENT: 1. Parkinson's disease. 2. Right spastic hemiplegia. 3. 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 4. Hypertension. 5. Hyperlipidemia. PLAN: The overall plan of care is based on the preadmission screen, post-admission physician evaluation, and information garnered from therapy assessments. 1. Estimated length of stay is probably 7-10 days, potentially longer if needed. 2. Medical prognosis is reasonably good. 3. Anticipated interventions includes the interdisciplinary acute inpatient rehabilitation program. 4. Anticipated functional outcomes would be for the patient to become modified independent with transfers, mobility and ADLs as well as improvement with cognition, communication issues. 5. Discharge destination would be back to the home setting where the patient lives in an assisted living. 6. Expected therapy by discipline includes PT, OT and speech, 1 hour per day each five days a week throughout the duration of the acute inpatient rehabilitation stay. ADDENDUM: [address] [address] REHAB UNIT PLAN OF CARE Name: ROHAN RITCHIE Room #: 509-P [facility] IN [facility].#: [id number] Admission: 04/11/19 Attend Phys: Kj Gottlieb MD Discharge: 04/23/19 Date of : 33 Report #: [id number] As far as the patient's Parkinson's disease, she continues on the Sinemet with the dosing as recommended per Neurology. Tremoring appears to be a little less and we are monitoring regarding retropulsion and rigidity. Continuing in the therapy program with the team conference tomorrow. <ELECTRONICALLY SIGNED> By: Kj Gottlieb MD 04/25/19 1625 0917 Kj Gottlieb MD /nt
--- NOTE | 2019-04-25 16:25 | H ---
[facility] [place] [address] HISTORY AND PHYSICAL Name: ROHAN RITCHIE Room #: 509-P [facility] IN M.R.#: [id number] Admission: 04/11/19 Attend Phys: Kj Gottlieb MD Discharge: 04/23/19 Date of : 33 Report #: [id number] THIS REPORT FOR: //name// CC: Kj Sainz DATE OF SERVICE: 04/11/2019 HISTORY AND PHYSICAL/POST-ADMISSION PHYSICIAN EVALUATION HISTORY OF PRESENT ILLNESS: The patient has been admitted for acute in-hospital inpatient rehabilitation. Please see the history and physical. I agree with the assessment, examination findings, and the plan as noted. The patient has been diagnosed with Parkinson's and has been started on Sinemet trial. She has a prior CVA with right spastic hemiparesis. She has had a significant functional decline and was originally admitted after a fall. As far as past medical history, allergies, social history, and habits, please see the history and physical. REVIEW OF SYSTEMS: No current complaints of chest pain, shortness of breath, or abdominal discomfort. MEDICATIONS: Please see the full medication listing. PHYSICAL EXAMINATION: GENERAL: The patient was seen earlier, pleasant 84-year-old female, in no obvious distress. VITAL SIGNS: Temperature 98.2, pulse 64, respirations 18, blood pressure 145/71. HEENT: Appeared to be benign. CHEST: Sounded clear to auscultation. CARDIOVASCULAR: Regular rate and rhythm. ABDOMEN: Bowel sounds positive, nontender. NEUROLOGIC: She has slender build. She is alert. Mild tremor noted intermittently. 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 Right upper extremity, probably a 4-/5 compared to the left upper extremity more of a 4/5. Right lower extremity strength is probably a grade 3+. Left lower extremity is more of 4. No calf swelling. No distal edema. Sit to stand is mod assist. She has been walking with a front-wheeled walker, min assist. ASSESSMENT: 1. Parkinson's disease. 2. Right spastic hemiparesis. 3. Prior cerebrovascular accident x 2 in 2019. [facility] [address] [place] [address] HISTORY AND PHYSICAL Name: ROHAN RITCHIE Room #: 509-P [facility] IN M.R.#: [id number] Admission: 04/11/19 Attend Phys: Kj Gottlieb MD Discharge: 04/23/19 Date of : 33 Report #: [id number] 4. Hypertension. 5. Hyperlipidemia. 6. Scoliosis with degenerative arthritis. PLAN: The patient has been admitted for acute in-hospital inpatient rehabilitation. From a postadmission physician evaluation perspective, there are no relevant changes since the preadmission screening. Please see the above review of prior and current medical and functional conditions and comorbidities. Please see the patient's previous and current functional status. As far as risk of complications, the patient has multiple medical comorbidities as noted above. Initial plan of care involves the interdisciplinary acute inpatient rehabilitation program with goal of maximizing her functional independence, so that she can hopefully return back to her prior living situation. Measurable functional goals would be for the patient to become modified independent with transfers, mobility, ADLs, and cognitive communication issues, so she can return back to the home setting. Prognosis is reasonably good. Estimated length of stay probably at least 7-14 days pending progress. Potential barriers would include her multiple medical comorbidities and decreased functional status. The patient meets diagnostic criteria for an acute in-hospital inpatient rehabilitation stay. She meets the medical necessity criteria. She does have the tolerance for therapies and has appropriate discharge goals back to the home setting. <ELECTRONICALLY SIGNED> By: Kj Gottlieb MD 04/25/19 1625 1125 1150 Kj Gottlieb MD /[facility]
== END 2019-04-23 11:12 | disposition home health service (06) | DRG 57 ==
LOC: ENTRNSPT 04-23 11:03 → EDTRNSPTSTS 04-23 11:06
PROVIDERS: Nurse Practitioner Family; ADMIT Physical Medicine & Rehabilitation
DX: G20 Parkinson's disease (principal); I69.951 Hemiplegia and hemiparesis following unspecified cerebrovascular disease affecting right dominant side; E46 Unspecified protein-calorie malnutrition; M81.0 Age-related osteoporosis without current pathological fracture; E78.5 Hyperlipidemia, unspecified; I10 Essential (primary) hypertension; M19.011 Primary osteoarthritis, right shoulder; M41.9 Scoliosis, unspecified; F32.9 Major depressive disorder, single episode, unspecified; F01.50 Vascular dementia, unspecified severity, without behavioral disturbance, psychotic disturbance, mood disturbance, and anxiety; R29.6 Repeated falls; E53.8 Deficiency of other specified B group vitamins; K59.00 Constipation, unspecified; F02.80 Dementia in other diseases classified elsewhere, unspecified severity, without behavioral disturbance, psychotic disturbance, mood disturbance, and anxiety; R53.81 Other malaise; R26.9 Unspecified abnormalities of gait and mobility; Z88.0 Allergy status to penicillin; Z88.1 Allergy status to other antibiotic agents; Z88.8 Allergy status to other drugs, medicaments and biological substances; Z90.49 Acquired absence of other specified parts of digestive tract; Z90.710 Acquired absence of both cervix and uterus; Z85.3 Personal history of malignant neoplasm of breast; Z87.81 Personal history of (healed) traumatic fracture; Z68.25 Body mass index [BMI] 25.0-25.9, adult; Z79.899 Other long term (current) drug therapy; Z90.721 Acquired absence of ovaries, unilateral; Z91.81 History of falling
CPT/HCPCS: 10112

== ENCOUNTER 2020-05-13 01:34 | Emergency (ER) | payer OTHER, BC ==
[~2020-05-13] VITALS: Ht 162.6 cm; Wt 61.2 kg
[~2020-05-13 01:34] MED LIST changes: +CARBIDOPA-LEVO1 EAC9 PO
[2020-05-13 01:57] LABS: HEMATOCRIT 41.5 % (37.0-47.0); HEMOGLOBIN 13.5 gm/dL (12.0-15.0); MCH 27.9 pg (26.0-34.0); MCHC 32.5 g/dL (28.0-37.0); MCV 85.8 fL (80.0-100.0); RBC 4.83 mil/uL (4.20-5.00); RDW 17.1 % (10.5-14.5)
[2020-05-13 02:03] LABS: CALCIUM 9.6 mg/dL (8.5-10.1); CREATININE 0.9 mg/dL (0.6-1.0); POTASSIUM 4.5 mmol/L (3.5-5.1)
[2020-05-13 03:01] LABS: APTT 28.3 Seconds (24.5-32.8); PROTIME 9.7 Seconds (9.3-11.4)
[2020-05-13 04:07] VITALS: BP 119/49
--- NOTE | 2020-05-13 07:21 | EKG ---
[facility] [place] [address] ELECTROCARDIOGRAM REPORT Name: ROHAN RITCHIE Room #: [facility] BRENDA Joyner#: [id number] Admission: 05/13/20 Attend Phys: Discharge: 05/13/20 Date of : 33 Report #: [id number] [facility] ED Test Date: 2020-05-13 Test Time: 01:54:09 Pat Name: ROHAN RITCHIE Department: Room: Gender: F Arborist: ESTELLE : 1935 Requested By: Jozef Friedman Order Number: [id number] MD: Kwesi Milner Measurements Intervals [place] Rate: 73 P: -14 MD: 178 QRS: -50 QRSD: 98 T: 46 QT: 375 QTc: 414 Interpretive Statements Sinus rhythm Ventricular premature complex LAD, consider left anterior fascicular block Left ventricular hypertrophy Baseline wander in lead(s) V6 Compared to ECG 04/08/2019 15:09:39 Ventricular premature complex(es) now present Q waves now present Electronically Signed On 05-13-2020 7:21:31 LEGAL EXAMINER by Kwesi Milner [email or web address] <ELECTRONICALLY SIGNED> By: Kwesi Milner MD, [facility] 05/13/20 0721 0154 0154 Kwesi Milner MD, [facility] /EPI
== END 2020-05-13 04:08 | disposition home or self-care (01) ==
LOC: ER 01:34
PROVIDERS: Emergency Medicine
DX: S51.011A Laceration without foreign body of right elbow, initial encounter (principal); S70.01XA Contusion of right hip, initial encounter; S09.90XA Unspecified injury of head, initial encounter; M19.90 Unspecified osteoarthritis, unspecified site; E78.5 Hyperlipidemia, unspecified; I10 Essential (primary) hypertension; M81.0 Age-related osteoporosis without current pathological fracture; Z85.3 Personal history of malignant neoplasm of breast; Z90.49 Acquired absence of other specified parts of digestive tract; Z79.899 Other long term (current) drug therapy; Z88.6 Allergy status to analgesic agent; Z88.1 Allergy status to other antibiotic agents; Z88.8 Allergy status to other drugs, medicaments and biological substances; Z88.0 Allergy status to penicillin; Z86.73 Personal history of transient ischemic attack (TIA), and cerebral infarction without residual deficits; W19.XXXA Unspecified fall, initial encounter; Y93.89 Activity, other specified; Y92.89 Other specified places as the place of occurrence of the external cause; Y99.8 Other external cause status

== ENCOUNTER 2021-03-05 19:41 | Emergency (ER) | payer OTHER, BC ==
[~2021-03-05] VITALS: Ht 162.6 cm; Wt 66.2 kg
[2021-03-05 21:40] VITALS: BP 109/73
== END 2021-03-05 21:52 | disposition home or self-care (01) ==
LOC: ER 19:41
DX: S81.011A Laceration without foreign body, right knee, initial encounter (principal); M19.90 Unspecified osteoarthritis, unspecified site; M81.0 Age-related osteoporosis without current pathological fracture; E78.5 Hyperlipidemia, unspecified; I10 Essential (primary) hypertension; Z85.3 Personal history of malignant neoplasm of breast; Z90.49 Acquired absence of other specified parts of digestive tract; Z98.890 Other specified postprocedural states; Z79.891 Long term (current) use of opiate analgesic; Z79.899 Other long term (current) drug therapy; Z88.6 Allergy status to analgesic agent; Z88.1 Allergy status to other antibiotic agents; Z88.5 Allergy status to narcotic agent; Z88.0 Allergy status to penicillin; Z88.8 Allergy status to other drugs, medicaments and biological substances; W18.30XA Fall on same level, unspecified, initial encounter; Y93.89 Activity, other specified; Y92.89 Other specified places as the place of occurrence of the external cause; Y99.8 Other external cause status

== ENCOUNTER 2021-03-14 12:49 | Emergency (ER) | payer OTHER, BC ==
[~2021-03-14] VITALS: Ht 162.6 cm; Wt 63.5 kg
[2021-03-14] MEDS ORDERED: APAP650 PO (13:06)
[2021-03-14] MEDS ORDERED: LOPERAMIDE2 MG PO (13:07)
[2021-03-14] MEDS ORDERED: LIPITOR10 MG PO (13:07)
[2021-03-14] MEDS ORDERED: MIRTAZAPINE7.5 MG PO (13:07)
[2021-03-14] MEDS ORDERED: ICY HOT 16% POW49 GM TOP (13:08)
[2021-03-14] MEDS ORDERED: SINEMET 25-1001 EAC1 PO (13:08)
[2021-03-14] MEDS ORDERED: VITAMIN B-121000 MC2 SUBLING (13:08)
[2021-03-14] MEDS ORDERED: CLOTRIMAZOLE-BE15 GM TOP (13:09)
[2021-03-14] MEDS ORDERED: NYSTATIN1 EA10 TOP (13:10)
[2021-03-14] MEDS ORDERED: RESTASIS1 EACH OPHTHALMIC (13:11)
[2021-03-14] MEDS ORDERED: SYSTANE NIGHTT3.5 GM OPHTHALMIC (13:11)
[2021-03-14] MEDS ORDERED: CALMOSEPTINE O3.5 GM TOP (13:12)
[2021-03-14 14:12] LABS: ABSOLUTE NEUTROPHILS 6.6 thou/uL (1.4-8.2); BASOPHILS 0.8 % (0.0-2.0); EOSINOPHILS 2.7 % (0.0-3.0); HEMATOCRIT 41.6 % (37.0-47.0); HEMOGLOBIN 13.5 gm/dL (12.0-15.0); LYMPHOCYTES 13.4 % (24.0-44.0); MCH 27.7 pg (26.0-34.0); MCHC 32.5 g/dL (28.0-37.0); MCV 85.4 fL (80.0-100.0); MONOCYTES 7.9 % (1.0-8.0); PLATELET COUNT 310 thou/uL (150-400); POLYS 75.2 % (36.0-66.0); RBC 4.87 mil/uL (4.20-5.00); WBC 8.8 thou/uL (4.0-11.0)
[2021-03-14 14:21] LABS: CALCIUM 9.6 mg/dL (8.5-10.1); POTASSIUM 4.5 mmol/L (3.5-5.1)
[2021-03-14 15:25] LABS: URINE BILIRUBIN NEGATIVE (Negative); URINE BLOOD 2+ (Negative); URINE COLOR YELLOW; URINE GLUCOSE-RANDOM* NEGATIVE (Negative); URINE KETONES NEGATIVE (Negative); URINE PROTEIN (DIPSTICK) 2+ (Negative); URINE UROBILINOGEN 0.2 E.U./dl (0.2-1.0)
[2021-03-14 15:33] LABS: URINE CLARITY HAZY; URINE LEUKOCYTES-REFLEX 3+ (Negative); URINE NITRITE-REFLEX POSITIVE (Negative)
[2021-03-14 15:45] LABS: BACTERIA-REFLEX >30 Many /HPF (None Seen); CASTS None Seen /LPF (None Seen); CRYSTALS None Seen /LPF (None Seen); SQUAMOUS 0-3 Few /LPF (0-3); URINE RBC 3-10 Few /HPF (NONE SEEN); URINE WBC-REFLEX >25 Many /HPF (0-5)
[2021-03-14 15:52] LABS: AMP/METHAMP Negative (Negative); BARBITURATES Negative (Negative); BENZODIAZEPINES Negative (Negative); COCAINE Negative (Negative); METHADONE Negative (Negative); OPIATES Negative (Negative); PCP Negative (Negative)
[2021-03-14] MEDS ORDERED: LEVOFLOXACIN500 MG PO (17:16)
[2021-03-14 21:39] VITALS: BP 121/60
--- NOTE | 2021-03-15 07:15 | EKG ---
[facility] [place] [address] ELECTROCARDIOGRAM REPORT Name: ROHAN RITCHIE ASHLEE Room #: DEP Ar#: [id number] Admission: 03/14/21 Attend Phys: Discharge: 03/14/21 Date of : 33 Report #: [id number] [facility] ED Test Date: 2021-03-14 Test Time: 14:38:30 Pat Name: ROHAN RITCHIE Department: Room: Gender: F [place] Farmer: unknown : 1935 Requested By: Brandon Hill Order Number: [id number] MD: Kwesi Milner Measurements Intervals [place] Rate: 73 P: 8 NC: 146 QRS: -50 QRSD: 99 T: 54 QT: 392 QTc: 432 Interpretive Statements Sinus rhythm Abnormal R-wave progression, early transition Left ventricular hypertrophy Compared to ECG 05/13/2020 01:54:09 Ventricular premature complex(es) no longer present Electronically Signed On 03-15-2021 7:15:24 CDT by Kwesi Milner [email or web address] <ELECTRONICALLY SIGNED> By: Kwesi Milner MD, [facility] 03/15/21 0715 D: 10/1437 143 Kwesi Milner MD, [facility] /EPI
== END 2021-03-14 21:41 | disposition home or self-care (01) ==
LOC: ER 12:49
PROVIDERS: Nurse Practitioner
DX: N39.0 Urinary tract infection, site not specified (principal); M19.90 Unspecified osteoarthritis, unspecified site; E78.5 Hyperlipidemia, unspecified; Z90.49 Acquired absence of other specified parts of digestive tract; Z79.899 Other long term (current) drug therapy; Z88.6 Allergy status to analgesic agent; Z88.1 Allergy status to other antibiotic agents; Z88.0 Allergy status to penicillin

== ENCOUNTER 2021-03-16 11:30 | Inpatient (IN) | payer OTHER, BC ==
[~2021-03-16] VITALS: Ht 160 cm; Wt 59.0 kg
[~2021-03-16 11:30] MED LIST changes: +CALMOSEPTINE O3.5 GM TOP; +CLOTRIMAZOLE-BE15 GM TOP; +ICY HOT 16% POW49 GM TOP; +LEVOFLOXACIN500 MG PO; +LOPERAMIDE2 MG PO; +MIRTAZAPINE7.5 MG PO; +RESTASIS1 EACH OPHTHALMIC; +SINEMET 25-1001 EAC1 PO; +SYSTANE NIGHTT3.5 GM OPHTHALMIC; +VITAMIN B-121000 MC2 SUBLING
[2021-03-16 11:34] VITALS: BP 121/40
[2021-03-16 11:42] LABS: ABSOLUTE NEUTROPHILS 7.1 thou/uL (1.4-8.2); BASOPHILS 1.3 % (0.0-2.0); EOSINOPHILS 2.7 % (0.0-3.0); HEMATOCRIT 38.8 % (37.0-47.0); HEMOGLOBIN 12.5 gm/dL (12.0-15.0); MCH 27.6 pg (26.0-34.0); MCHC 32.3 g/dL (28.0-37.0); MCV 85.4 fL (80.0-100.0); MONOCYTES 8.4 % (1.0-8.0); PLATELET COUNT 340 thou/uL (150-400); POLYS 74.6 % (36.0-66.0); RBC 4.54 mil/uL (4.20-5.00); WBC 9.6 thou/uL (4.0-11.0)
[2021-03-16 12:05] LABS: CALCIUM 9.1 mg/dL (8.5-10.1); CREATININE 1.1 mg/dL (0.6-1.0); POTASSIUM 4.8 mmol/L (3.5-5.1)
[2021-03-16 12:10] LABS: URINE BILIRUBIN NEGATIVE (Negative); URINE BLOOD TRACE (Negative); URINE COLOR YELLOW; URINE GLUCOSE-RANDOM* NEGATIVE (Negative); URINE KETONES NEGATIVE (Negative); URINE NITRITE-REFLEX NEGATIVE (Negative); URINE PROTEIN (DIPSTICK) 1+ (Negative); URINE SPECIFIC GRAVITY 1.025 (1.005-1.035); URINE UROBILINOGEN 0.2 E.U./dl (0.2-1.0)
[2021-03-16 12:11] LABS: ALBUMIN 2.3 g/dL (3.4-5.0); TOTAL BILIRUBIN 0.3 mg/dL (0.2-1.0); TOTAL PROTEIN 6.9 g/dL (6.4-8.2)
[2021-03-16 12:12] LABS: URINE CLARITY HAZY; URINE LEUKOCYTES-REFLEX 2+ (Negative)
[2021-03-16 12:50] LABS: CASTS None Seen /LPF (None Seen); SQUAMOUS 0-3 Few /LPF (0-3)
[2021-03-16 12:51] LABS: BACTERIA-REFLEX 1-9 Few /HPF (None Seen); CRYSTALS None Seen /LPF (None Seen); URINE RBC 1-2 Rare /HPF (NONE SEEN); URINE WBC-REFLEX >25 Many /HPF (0-5); WBC CLUMPS Many (None Seen)
[2021-03-16 12:52] LABS: APTT 30.9 Seconds (24.5-32.8); INR 1.04; PROTIME 11.3 Seconds (10.5-12.1)
[2021-03-16 13:01] LABS: MAGNESIUM 2.2 mg/dL (1.8-2.4)
--- NOTE | 2021-03-16 14:45 | NUR ---
LAB PAGED AT THIS TIME FOR SECOND SET OF BLOOD CULTURES D/T BEING A HARD STICK
[2021-03-16 17:13] VITALS: BP 90/47
[2021-03-16 17:40] VITALS: BP 111/39
--- NOTE | 2021-03-16 18:38 | NUR ---
ASSUMED PT CARE AT 1800 FROM ED. PT IS ALERT & ORIENTED X3 TO PERSON, PLACE AND SITUATION/ PT HAS IV SITE ON RAC 20 GAUGE RUNNING NS @75ML/HR. PT IS INCONTINENT OF BLADDER. LAST BM WAS 03/15. PT FEEL ON 03/05 AND NOT BEEN WALKING SINCE THEN PER FAMILY. FINISHED ADMISSION EXCEPT PICTURE ON WOUNDS. WILL ENDORSE TO NIGHT NURSE. PT IS ON ROOM AIR. PT HAS FULL DENTURES AND EYEGLASSES. PT HAS POOR APPETITE. PT ON THE BED, BED ON THE LOWEST POSITION, SIDE RAILS UP, CALL LIGHT WITHIN REACH. WILL CONTINUE TO MONITOR PT. FOLLOW POC.
[2021-03-16 20:41] VITALS: BP 121/54
--- NOTE | 2021-03-17 04:32 | NUR ---
RECEIVED CARE OF THIS PATIENT AT 1900. PATIENT ALERT AND ORIENTED X4. C/O PAIN. MED GIVEN. IV FLUIDS INFUSING. HAS LAC ON R KNEE WITH SUTURES. SLEPT MOST OF NIGHT.
[2021-03-17 05:47] LABS: ALBUMIN 2.1 g/dL (3.4-5.0); CALCIUM 8.6 mg/dL (8.5-10.1); CREATININE 0.8 mg/dL (0.6-1.0); POTASSIUM 5.4 mmol/L (3.5-5.1); TOTAL BILIRUBIN 0.4 mg/dL (0.2-1.0); TOTAL PROTEIN 5.7 g/dL (6.4-8.2)
[2021-03-17 06:08] LABS: HEMATOCRIT 33.1 % (37.0-47.0); HEMOGLOBIN 10.8 gm/dL (12.0-15.0); MCH 27.8 pg (26.0-34.0); MCHC 32.5 g/dL (28.0-37.0); MCV 85.5 fL (80.0-100.0); RBC 3.87 mil/uL (4.20-5.00); RDW 14.7 % (10.5-14.5); WBC 6.4 thou/uL (4.0-11.0)
--- NOTE | 2021-03-17 07:02 | EKG ---
[address] [place] [address] ELECTROCARDIOGRAM REPORT Name: ROHAN RITCHIE ASHLEE Room #: 447-P ADM IN M.R.#: [id number] Admission: 03/16/21 Attend Phys: Gilbert Bobby MD Discharge: Date of : 33 Report #: [id number] [facility] ED Test Date: 2021-03-16 Test Time: 11:33:30 Pat Name: ROHAN RITCHIE Department: Room: [facility] Gender: F Account Processor: RENE : 1935 Requested By: Audrey Hernandez Order Number: [id number] MD: Kwesi Milner Measurements Intervals [place] Rate: 70 P: -29 FL: 160 QRS: -47 QRSD: 101 T: 13 QT: 410 QTc: 443 Interpretive Statements Sinus rhythm Left ventricular hypertrophy Baseline wander in lead(s) II,III,aVL,aVF Compared to ECG 03/14/2021 14:38:30 No significant changes Electronically Signed On 03-17-2021 7:02:28 CDT by Kwesi Milner [email or web address] <ELECTRONICALLY SIGNED> By: Kwesi Milner MD, FAC 03/17/21 0702 1133 1133 Kwesi Minler MD, [facility] /EPI
[2021-03-17 08:13] VITALS: BP 114/53
--- NOTE | 2021-03-17 09:35 | NUR ---
Assumed care of pt at 0700. Pt a&ox2-3. Pt states rt knee pain is better. Sutures observed on rt knee. Incontinent of b&b. RA. Talked to pt's daughter over the phone and updated on pt's status. Call light within reach. Fall precautions in place. Will continue to monitor.
--- NOTE | 2021-03-17 15:06 | NUR ---
WOUND CONSULT; THE PATIENT WAS ASSESSED AND AN UNSTABLE KNEE INSCISION WAS IDENTIFIED. THERE IS ERYTHEMA AND WARMTH TO THE KNEE WELL PURULENT DRAINAGE. RECOMMENDATIONS; -CONSULT DR RAZA -APPLY A BORDER FOAM TO THE RIGHT KNEE FOR NOW. -APPLY ZGUARD TO BUTTOCK(S) FOR NOW. DISCUSSED WITH SARAH.
--- NOTE | 2021-03-17 15:15 | NUR ---
Case opened to follow for dc planning. SNF consult rec'd. Chart reviewed and discussed with the care team. Pt admitted with UTI/ams/htn/weakness with recent fall on 03/05 resulting in sutures to her knee. The pt's wt bearing status was not affected but an immobilzer was placed to protect the sutures and the pt has been staying off of it for the past 12 days. Pt is now mod/max assist. PT eval pending but OT eval and care team anticipating [facility] Discussed with dtr/dpoa Radha as pt is forgetful. Radha is interested in snf stay at [facility] vs returning to the [facility] with HH. She also asked about 5n acute rehab;however pt is may not meet criteria due to dx and poor endurance for 3hrs of therapy. Referral faxed and called to Rosamaria in admissions at [facility]. They do have a bed available and can likely accept [facility]. Urine cultures are pending. Pt remains on iv atb/ivf. PT eval in the am will need to be faxed to [facility]. Covid neg test has been faxed. Pt's dtr to discuss with pt and other family and will advise is she wishes any other snf referrals sent.
[2021-03-17 16:02] VITALS: BP 132/61
[2021-03-17 21:27] VITALS: BP 127/62
--- NOTE | 2021-03-18 01:30 | NUR ---
ASSESSED AT START OF SHIFT. PT REQUESTED SOME TEYLENOL. RT KNEE DRESSING DONE. EVENING MEDS GIVEN CRUSHED IN APPLE SAUCE. FALL PREC IN PLACE. EXT CATH MAINTAINED. WILL CONT TO MONITOR.
[2021-03-18 07:19] VITALS: BP 99/50
[2021-03-18 09:08] LABS: CALCIUM 8.9 mg/dL (8.5-10.1); CREATININE 1.1 mg/dL (0.6-1.0)
--- NOTE | 2021-03-18 09:44 | NUR ---
Assess due to admit with dehydration, altered mental status which has now resolved per chart documentation. Hx sarcopenia, parkinsons, cva. Has knee laceration and wound care has assessed. On [facility] altered chopped diet and eating 65-80% of 3 meals yesterday. Wt fairly stable around 130-135 lb since April. Has drank Ensure in past so will offer 1 x daily. Low nutrition risk
--- NOTE | 2021-03-18 11:06 | NUR ---
Assumed care of pt at 0700. Pt a&ox2-3. Dressing changed. Knee immobilizer in place. Up to the chair with physical therapy. Possible discharge to SNF if approved. Call light within reach. Fall precautions in place. Will continue to monitor.
--- NOTE | 2021-03-18 16:39 | NUR ---
CARE TEAM INDICATED THAT PT IS MEDICALLY STABLE TO DC TO SKILLED AT [facility] THIS DAY. CM SPOKE WITH PT AND CALLED AND SPOKE WITH PT'S DTR THEY ARE AWARE AND AGREEABLE. CM FAXED ORDERS TO [facility] IN ADMISSIONS AT AND SHE ARRANGED VAN TRANSPORT AT 1630. CHART COPY MADE. REPORT CALLED. NO OTHER CM INTERVENTION INDICATED CASE CLOSED.
--- NOTE | 2021-03-21 11:01 | HC ---
[facility] [place] [address] CONSULTATION Name: ROHAN RITCHIE ASHLEE Room #: 447-P [facility] IN M.R.#: [id number] Admission: 03/16/21 Attend Phys: Gilbert Bobby MD Discharge: 03/18/21 Date of : 33 Report #: [id number] THIS REPORT FOR: cc: Teresa Recio MD, Christine J. MD Althoff, Jeffrey R. MD ~ DATE OF SERVICE: 03/17/2021 CHIEF COMPLAINT: Traumatic wound to the right knee and gluteal pressure ulceration. HISTORY OF PRESENT ILLNESS: This is an 86-year-old female patient with a history of generalized weakness. She apparently fell 2 weeks ago sustaining a laceration to her knee. She did have a repair performed in the Emergency Department. Sutures remain in place. She is also noted to have gluteal pressure ulceration. I have been asked to see her with regard to wound care. PAST MEDICAL HISTORY: Positive for scoliosis, balance problems, previous TIA, poor vision, constipation, hyperlipidemia, history of prior breast cancer, cerebrovascular accident with right sided weakness, previous left ankle fracture. SOCIAL HISTORY: Negative for alcohol or tobacco use. MEDICATIONS: Include vitamin B12, vitamin C, Tylenol, loperamide, Lipitor, mirtazapine, Sinemet, clotrimazole, betamethasone, Calmoseptine, Plavix. ALLERGIES: KETOROLAC, KEFLEX, DOLOBID, ERYTHROMYCIN, OXYBUTYNIN, AND PENICILLIN. REVIEW OF SYSTEMS: CONSTITUTIONAL: The patient denies fever, chills or weight loss. NEUROLOGICAL: The patient has some residual right sided weakness. EYES: The patient denies visual changes, redness or drainage. ENT: The patient denies earache, nasal drainage, sore throat. CARDIOVASCULAR: The patient denies chest pain, palpitations, or diaphoresis. PULMONARY: The patient denies cough or shortness of breath. GASTROINTESTINAL: The patient denies nausea, vomiting, diarrhea or abdominal pain. ORTHOPEDIC: The patient has pain involving her right knee. Others systems in a 14-point review of systems are negative. PHYSICAL EXAMINATION: VITAL SIGNS: At this time include temperature 36.6, pulse 78, respiratory rate 20, blood pressure 132/61. [address] [address] CONSULTATION Name: ROHAN RITCHIE [facility] Room #: 447-P [facility] IN M.R.#: [id number] Admission: 03/16/21 Attend Phys: Gilbert Bobby MD Discharge: 03/18/21 Date of : 33 Report #: [id number] GENERAL: This is a somewhat chronically ill-appearing female patient appears to be in minimal distress. HEENT: Head normocephalic. Nose and throat clear. NECK: Supple. LUNGS: Diminished. HEART: Irregular. ABDOMEN: Soft and bowel sounds present. EXTREMITIES: Examination of the extremities demonstrate an L-shaped laceration to the right prepatellar region. There is moderate erythema. There is some gapping along the laceration line. Nylon sutures are in place. It is mildly tender. There is minimal drainage. Examination of the gluteal region demonstrates multiple shallow stage 3 pressure ulcerations on both the right and left gluteal region. No exposed deep structures and no evidence of infection. NEUROLOGIC: The patient is alert. She seems reasonably well oriented, appropriate for her age. LABORATORY STUDIES: Include sodium 141, potassium 5.4, chloride 108, CO2 of 20, BUN 32, creatinine 0.8, glucose of 81. Albumin is 2.1. White blood cell count 6.4 with a hemoglobin of 10.8. CLINICAL IMPRESSION: 1. Traumatic wound/laceration to the right knee 2. Stage 2 pressure ulcerations to the sacrum and bilateral gluteal region. 3. Partial-thickness pressure ulcer of the bridge of the nose. RECOMMENDATIONS: At this point in time, we will recommend topical gentamicin ointment, Xeroform, bordered foam daily to the right knee. We recommend barrier cream to the gluteal sacral region and otherwise leave open to air. She will need low air loss pump on her bed and q. 2 hour turning and positioning, aggressive nutritional support. We recommend DuoDERM Thin to the bridge of the nose to help with pressure from her glasses. I appreciate being asked to see her in consultation. <ELECTRONICALLY SIGNED> By: Shiva Lindsay MD 03/21/21 1101 0744 0819 Shiva Lindsay MD /nt
== END 2021-03-18 17:36 | DRG 981 ==
LOC: ER 11:30 → EROBS 17:36 → 4S 17:36
PROVIDERS: Nurse Practitioner Family; ADMIT Hospitalist; ATTEND Hospitalist
PROC: 0YQFXZZ Repair Right Knee Region, External Approach (ICD-10-PCS; principal; 2021-03-16)
DX: S81.011A Laceration without foreign body, right knee, initial encounter (principal); L89.153 Pressure ulcer of sacral region, stage 3; L89.323 Pressure ulcer of left buttock, stage 3; L89.313 Pressure ulcer of right buttock, stage 3; N30.01 Acute cystitis with hematuria; E46 Unspecified protein-calorie malnutrition; I69.351 Hemiplegia and hemiparesis following cerebral infarction affecting right dominant side; E86.0 Dehydration; L89.899 Pressure ulcer of other site, unspecified stage; E78.5 Hyperlipidemia, unspecified; Z20.822 Contact with and (suspected) exposure to COVID-19; I10 Essential (primary) hypertension; M81.0 Age-related osteoporosis without current pathological fracture; K59.00 Constipation, unspecified; M19.011 Primary osteoarthritis, right shoulder; R62.7 Adult failure to thrive; R41.0 Disorientation, unspecified; E86.9 Volume depletion, unspecified; R53.81 Other malaise; E53.8 Deficiency of other specified B group vitamins; G20 Parkinson's disease; Z79.899 Other long term (current) drug therapy; Z85.3 Personal history of malignant neoplasm of breast; Z90.49 Acquired absence of other specified parts of digestive tract; Z90.722 Acquired absence of ovaries, bilateral; Z88.1 Allergy status to other antibiotic agents; Z88.0 Allergy status to penicillin; Z88.8 Allergy status to other drugs, medicaments and biological substances; Z68.23 Body mass index [BMI] 23.0-23.9, adult; Z87.81 Personal history of (healed) traumatic fracture
CPT/HCPCS: 10195